=== PATIENT | male | born 1960 | race Caucasian/White ===

== ENCOUNTER 2018-01-11 17:59 | Inpatient (IN) | payer OTHER ==
[2018-01-11] MEDS: ONDANSETRON 4MG/2ML VIAL (J2405) IV (18:35)
[2018-01-11] MEDS: MORPHINE 2 MG/ML 1ML SYRINGE (J2270) IV ×2 (18:37→19:18)
[2018-01-11] MEDS: NS 1,000 ML IV (18:38)
[2018-01-11 18:40] LABS: BASO % 0.1 % (0.0-1.0); EOS # 0.1 10^3/uL (0.0-0.50); EOS % 0.4 % (0.0-3.0); HEMATOCRIT 40.9 % (42.0-52.0); HEMOGLOBIN 14.2 g/dl (13.5-17.5); IMMATURE GRANULOCYTE % 0.6 % (0-3.0); LYMPH # 1.6 10^3/uL (1.5-4.5); LYMPH % 11.7 % (24.0-44.0); MEAN CORPUSCULAR HGB CONC 34.7 g/dl (32.0-36.5); MEAN CORPUSCULAR VOLUME 95.1 fl (80.0-96.0); MONO # 1.6 10^3/uL (0.0-0.8); MONO % 11.8 % (0.0-5.0); NEUTROPHILS # 10.4 10^3/uL (1.8-7.7); NEUTROPHILS % 75.4 % (36.0-66.0); PLATELET COUNT, AUTOMATED 282 10^3/uL (150-450); RED CELL DISTRIBUTION WIDTH 12.9 % (11.5-14.5); WHITE BLOOD COUNT 13.8 10^3/uL (4.0-10.0)
[2018-01-11 18:50] LABS: INR 1.04; PROTHROMBIN TIME 13.7 SECONDS (12.1-14.4)
[2018-01-11 18:51] LABS: PARTIAL THROMBOPLASTIN TIME 28.5 SECONDS (25.4-37.6)
[2018-01-11 19:27] LABS: ALBUMIN 3.6 GM/DL (3.2-5.2); ALBUMIN/GLOBULIN RATIO 0.72 (1.00-1.93); ALKALINE PHOSPHATASE 121 U/L (45-117); ALT/SGPT 33 U/L (12-78); AMYLASE 732 U/L (25-115); ANION GAP 8 MEQ/L (8-16); AST/SGOT 27 U/L (7-37); BILIRUBIN,DIRECT 0.2 MG/DL (0.0-0.2); BILIRUBIN,TOTAL 0.6 MG/DL (0.2-1.0); BLOOD UREA NITROGEN 8 MG/DL (7-18); CALCIUM LEVEL 8.7 MG/DL (8.5-10.1); CARBON DIOXIDE LEVEL 26 MEQ/L (21-32); CHLORIDE LEVEL 93 MEQ/L (98-107); CK-MB VALUE MASS < 1.0 NG/ML (<3.6); CPK CREATINE PHOSPHOKINASE 70 U/L (39-308); CREATININE FOR GFR 0.71 MG/DL (0.70-1.30); GLOMERULAR FILTRATION RATE > 60.0 (>56); GLUCOSE, FASTING 102 MG/DL (70-100); LIPASE 7329 U/L (73-393); MB/CK RELATIVE INDEX 1.43 (< OR =4); POTASSIUM SERUM 4.1 MEQ/L (3.5-5.1); SODIUM LEVEL 127 MEQ/L (136-145); TOTAL PROTEIN 8.6 GM/DL (6.4-8.2); TROPONIN I < 0.02 NG/ML (< 0.10)
[2018-01-11] MEDS ORDERED: ISOVUE-370 76% 100ML VIAL (Q9967) As Ordered (19:46)
[2018-01-11] MEDS: MORPHINE 4 MG/ML 1ML VIAL/SYRINGE (J2270) IV (20:15)
[2018-01-11] MEDS ORDERED: ONDANSETRON 4MG/2ML VIAL (J2405) IV (23:45)
[2018-01-11] MEDS ORDERED: LORazepam 2 MG TAB PO (23:45)
[2018-01-12 00:12] LABS: ESTIMATED AVERAGE GLUCOSE 100 MG/DL (60-110); HEMOGLOBIN A1c 5.1 %
[2018-01-12] MEDS: MORPHINE 2 MG/ML 1ML SYRINGE (J2270) IV (00:26)
[2018-01-12] MEDS: THIAMINE 100 MG TAB PO ×3 (01:31→20:42)
[2018-01-12] MEDS: NS 1,000 ML IV (01:32)
[2018-01-12] MEDS: PERCOCET 5MG/325MG TAB PO ×4 (01:59→20:42)
[2018-01-12 06:53] LABS: HEMATOCRIT 36.7 % (42.0-52.0); MEAN CORPUSCULAR HEMOGLOBIN 33.2 pg (27.0-33.0); MEAN CORPUSCULAR HGB CONC 35.4 g/dl (32.0-36.5); MEAN CORPUSCULAR VOLUME 93.9 fl (80.0-96.0); PLATELET COUNT, AUTOMATED 258 10^3/uL (150-450); RED BLOOD COUNT 3.91 10^6/uL (4.30-6.10); RED CELL DISTRIBUTION WIDTH 12.9 % (11.5-14.5)
[2018-01-12] MEDS: MORPHINE 4 MG/ML 1ML VIAL/SYRINGE (J2270) IV (06:54)
[2018-01-12 07:14] LABS: ANION GAP 5 MEQ/L (8-16); BLOOD UREA NITROGEN 8 MG/DL (7-18); CALCIUM LEVEL 8.2 MG/DL (8.5-10.1); CARBON DIOXIDE LEVEL 27 MEQ/L (21-32); CHLORIDE LEVEL 97 MEQ/L (98-107); CREATININE FOR GFR 0.51 MG/DL (0.70-1.30); GLOMERULAR FILTRATION RATE > 60.0 (>56); GLUCOSE, FASTING 73 MG/DL (70-100); POTASSIUM SERUM 4.6 MEQ/L (3.5-5.1); SODIUM LEVEL 129 MEQ/L (136-145)
[2018-01-12] MEDS: FOLIC ACID 1 MG TAB PO (08:58)
[2018-01-12] MEDS: VERAPAMIL 120 MG SR TAB PO (08:58)
[2018-01-12] MEDS: MULTIVITAMINS/MINERALS THERAP 1 TAB PO (08:58)
[2018-01-12] MEDS: CREON-12 CAPSULE PO ×3 (08:58→17:35)
[2018-01-12] MEDS: AUGMENTIN 875 MG TAB PO ×2 (08:58→20:42)
[2018-01-12] MEDS: ENOXAPARIN 40 MG/0.4 ML SYRINGE (J1650) SC (08:59)
[2018-01-12] MEDS ORDERED: MULTIVITAMINS/MINERALS THERAP 1 TAB PO (09:00)
[2018-01-12 13:12] LABS: LIPASE 3481 U/L (73-393); MAGNESIUM LEVEL 1.9 MG/DL (1.8-2.4)
[2018-01-13] MEDS: PERCOCET 5MG/325MG TAB PO ×4 (02:12→18:27)
[2018-01-13 07:57] LABS: HEMATOCRIT 36.5 % (42.0-52.0); HEMOGLOBIN 12.8 g/dl (13.5-17.5); MEAN CORPUSCULAR HEMOGLOBIN 32.7 pg (27.0-33.0); MEAN CORPUSCULAR HGB CONC 35.1 g/dl (32.0-36.5); MEAN CORPUSCULAR VOLUME 93.4 fl (80.0-96.0); PLATELET COUNT, AUTOMATED 300 10^3/uL (150-450); RED BLOOD COUNT 3.91 10^6/uL (4.30-6.10); RED CELL DISTRIBUTION WIDTH 12.7 % (11.5-14.5); WHITE BLOOD COUNT 14.1 10^3/uL (4.0-10.0)
[2018-01-13 08:19] LABS: ANION GAP 9 MEQ/L (8-16); BLOOD UREA NITROGEN 10 MG/DL (7-18); CALCIUM LEVEL 8.2 MG/DL (8.5-10.1); CARBON DIOXIDE LEVEL 24 MEQ/L (21-32); CHLORIDE LEVEL 93 MEQ/L (98-107); CREATININE FOR GFR 0.61 MG/DL (0.70-1.30); GLOMERULAR FILTRATION RATE > 60.0 (>56); GLUCOSE, FASTING 79 MG/DL (70-100); POTASSIUM SERUM 3.8 MEQ/L (3.5-5.1); SODIUM LEVEL 126 MEQ/L (136-145)
[2018-01-13] MEDS: THIAMINE 100 MG TAB PO ×2 (09:43→21:32)
[2018-01-13] MEDS: CREON-12 CAPSULE PO ×3 (09:43→18:25)
[2018-01-13] MEDS: AUGMENTIN 875 MG TAB PO ×2 (09:43→21:32)
[2018-01-13] MEDS: MULTIVITAMINS/MINERALS THERAP 1 TAB PO (09:44)
[2018-01-13] MEDS: FOLIC ACID 1 MG TAB PO (09:44)
[2018-01-13] MEDS: VERAPAMIL 120 MG SR TAB PO (09:44)
[2018-01-13] MEDS: ENOXAPARIN 40 MG/0.4 ML SYRINGE (J1650) SC (09:45)
[2018-01-13] MEDS: DOCUSATE SODIUM 100 MG CAP PO (10:36)
[2018-01-13] MEDS: MOM 30ML SUSPENSION UDC PO (10:36)
[2018-01-13] MEDS: MIRALAX *UNIT DOSE* 17GM PACKET PO (13:11)
[2018-01-14 07:39] LABS: HEMATOCRIT 32.2 % (42.0-52.0); HEMOGLOBIN 11.3 g/dl (13.5-17.5); MEAN CORPUSCULAR HEMOGLOBIN 32.9 pg (27.0-33.0); MEAN CORPUSCULAR HGB CONC 35.1 g/dl (32.0-36.5); MEAN CORPUSCULAR VOLUME 93.9 fl (80.0-96.0); PLATELET COUNT, AUTOMATED 297 10^3/uL (150-450); RED BLOOD COUNT 3.43 10^6/uL (4.30-6.10); RED CELL DISTRIBUTION WIDTH 12.4 % (11.5-14.5); WHITE BLOOD COUNT 13.4 10^3/uL (4.0-10.0)
[2018-01-14 08:00] LABS: ANION GAP 11 MEQ/L (8-16); BLOOD UREA NITROGEN 8 MG/DL (7-18); CALCIUM LEVEL 7.9 MG/DL (8.5-10.1); CARBON DIOXIDE LEVEL 23 MEQ/L (21-32); CHLORIDE LEVEL 91 MEQ/L (98-107); CREATININE FOR GFR 0.53 MG/DL (0.70-1.30); GLOMERULAR FILTRATION RATE > 60.0 (>56); GLUCOSE, FASTING 73 MG/DL (70-100); LIPASE 698 U/L (73-393); POTASSIUM SERUM 4.3 MEQ/L (3.5-5.1); SODIUM LEVEL 125 MEQ/L (136-145)
[2018-01-14] MEDS: ENOXAPARIN 40 MG/0.4 ML SYRINGE (J1650) SC (09:42)
[2018-01-14] MEDS: VERAPAMIL 120 MG SR TAB PO (09:43)
[2018-01-14] MEDS: THIAMINE 100 MG TAB PO (09:43)
[2018-01-14] MEDS: AUGMENTIN 875 MG TAB PO (09:43)
[2018-01-14] MEDS: FOLIC ACID 1 MG TAB PO (09:43)
[2018-01-14] MEDS: DOCUSATE SODIUM 100 MG CAP PO (09:43)
[2018-01-14] MEDS: MULTIVITAMINS/MINERALS THERAP 1 TAB PO (09:44)
[2018-01-14] MEDS: CREON-12 CAPSULE PO ×2 (09:44→12:47)
[2018-01-14] MEDS ORDERED: FLEET ENEMA PR (12:15)
[2018-01-14] MEDS: SENOKOT S TAB PO (12:47)
== END 2018-01-14 13:25 | disposition home or self-care (01) | DRG 282 ==
LOC: M MS4PR 01-12 01:24 → M ED 17:59 → M ED INP 23:21
DX: K85.20 Alcohol induced acute pancreatitis without necrosis or infection (principal); I10 Essential (primary) hypertension; F10.129 Alcohol abuse with intoxication, unspecified; J42 Unspecified chronic bronchitis; F17.210 Nicotine dependence, cigarettes, uncomplicated; Z79.899 Other long term (current) drug therapy; K86.3 Pseudocyst of pancreas; K86.0 Alcohol-induced chronic pancreatitis

== ENCOUNTER → 2018-02-24 | Outpatient (CLI) | payer OTHER ==
[2018-02-24 13:31] LABS: BASO # 0.1 10^3/uL (0.0-0.2); BASO % 0.7 % (0.0-1.0); EOS # 0.3 10^3/uL (0.0-0.50); EOS % 3.5 % (0.0-3.0); HEMATOCRIT 36.9 % (42.0-52.0); HEMOGLOBIN 12.1 g/dl (13.5-17.5); IMMATURE GRANULOCYTE % 0.3 % (0-3.0); LYMPH # 1.9 10^3/uL (1.5-4.5); LYMPH % 26.5 % (24.0-44.0); MEAN CORPUSCULAR HEMOGLOBIN 31.3 pg (27.0-33.0); MEAN CORPUSCULAR HGB CONC 32.8 g/dl (32.0-36.5); MEAN CORPUSCULAR VOLUME 95.3 fl (80.0-96.0); MONO % 13.7 % (0.0-5.0); NEUTROPHILS # 3.9 10^3/uL (1.8-7.7); NEUTROPHILS % 55.3 % (36.0-66.0); PLATELET COUNT, AUTOMATED 345 10^3/uL (150-450); RED BLOOD COUNT 3.87 10^6/uL (4.30-6.10); RED CELL DISTRIBUTION WIDTH 13.3 % (11.5-14.5); WHITE BLOOD COUNT 7.1 10^3/uL (4.0-10.0)
[2018-02-24 13:49] LABS: ALBUMIN/GLOBULIN RATIO 0.83 (1.00-1.93); ALKALINE PHOSPHATASE 115 U/L (45-117); ALT/SGPT 17 U/L (12-78); AMYLASE 118 U/L (25-115); ANION GAP 6 MEQ/L (8-16); AST/SGOT 20 U/L (7-37); BILIRUBIN,TOTAL 0.4 MG/DL (0.2-1.0); BLOOD UREA NITROGEN 5 MG/DL (7-18); CALCIUM LEVEL 8.4 MG/DL (8.5-10.1); CARBON DIOXIDE LEVEL 27 MEQ/L (21-32); CHLORIDE LEVEL 104 MEQ/L (98-107); CHOLESTEROL LEVEL 127 MG/DL (<200); CHOLESTEROL RISK RATIO 3.097 (<5); CREATININE FOR GFR 0.65 MG/DL (0.70-1.30); GLOMERULAR FILTRATION RATE > 60.0 (>56); GLUCOSE, FASTING 73 MG/DL (70-100); HDL CHOLESTEROL 41 MG/DL (>40); LDL CHOLESTEROL 75 MG/DL (<100); LIPASE 542 U/L (73-393); NON-HDL-C 86 MG/DL; POTASSIUM SERUM 4.8 MEQ/L (3.5-5.1); PROSTATIC SPECIFIC AG MONITOR 0.74 NG/ML (< 4.0); SODIUM LEVEL 137 MEQ/L (136-145); TOTAL PROTEIN 6.6 GM/DL (6.4-8.2); TRIGLYCERIDES LEVEL 57 MG/DL (<150)
== END ==
LOC: M WUC 08:38
DX: R53.83 Other fatigue (principal); I10 Essential (primary) hypertension; E78.2 Mixed hyperlipidemia
CPT/HCPCS: 82150

== ENCOUNTER → 2018-10-18 | Outpatient (CLI) | payer OTHER ==
[~2018-10-18] MED LIST: AMOX/K; AUGM875T28 PO; B COTAB3 PO; COUM1TAB17 PO; FOLI1TAB11 PO; MULTCAP PO; NICO14DI3 TD; PERC5TAB12 PO; PERCOCET PO; PRED20TA; PRED20TA PO; SENO8.6T10 PO; SENO8.6T5 PO; SERAX PO; THIA100TA PO; TYLE325T5 PO; VERA120T2 PO; VERA240C PO; VERA24TASA; VITA100T8 PO; VITMTA PO
[2018-10-18 12:56] LABS: BASO % 0.6 % (0.0-1.0); EOS # 0.1 10^3/uL (0.0-0.50); EOS % 1.9 % (0.0-3.0); HEMATOCRIT 41.6 % (42.0-52.0); HEMOGLOBIN 14.5 g/dl (13.5-17.5); LYMPH # 1.5 10^3/uL (1.5-4.5); LYMPH % 47.8 % (24.0-44.0); MEAN CORPUSCULAR HEMOGLOBIN 33.1 pg (27.0-33.0); MEAN CORPUSCULAR HGB CONC 34.9 g/dl (32.0-36.5); MONO # 0.5 10^3/uL (0.0-0.8); MONO % 17.2 % (0.0-5.0); NEUTROPHILS % 32.2 % (36.0-66.0); PLATELET COUNT, AUTOMATED 136 10^3/uL (150-450); RED BLOOD COUNT 4.38 10^6/uL (4.30-6.10); WHITE BLOOD COUNT 3.1 10^3/uL (4.0-10.0)
[2018-10-18 13:10] LABS: ALBUMIN 3.7 GM/DL (3.2-5.2); ALT/SGPT 53 U/L (12-78); BILIRUBIN,TOTAL 0.8 MG/DL (0.2-1.0); BLOOD UREA NITROGEN 3 MG/DL (7-18); CALCIUM LEVEL 8.3 MG/DL (8.5-10.1); CARBON DIOXIDE LEVEL 26 MEQ/L (21-32); CHLORIDE LEVEL 100 MEQ/L (98-107); CHOLESTEROL LEVEL 153 MG/DL (<200); CHOLESTEROL RISK RATIO 1.843 (<5); CREATININE FOR GFR 0.83 MG/DL (0.70-1.30); GLOMERULAR FILTRATION RATE > 60.0 (>56); GLUCOSE, FASTING 73 MG/DL (70-100); HDL CHOLESTEROL 83 MG/DL (>40); LDL CHOLESTEROL 61 MG/DL (<100); NON-HDL-C 70 MG/DL; POTASSIUM SERUM 4.8 MEQ/L (3.5-5.1); SODIUM LEVEL 133 MEQ/L (136-145); TOTAL PROTEIN 7.4 GM/DL (6.4-8.2); TRIGLYCERIDES LEVEL 45 MG/DL (<150)
== END ==
LOC: M WUC 08:30
PROVIDERS: ATTEND Physician Assistant Medical
DX: R53.83 Other fatigue (principal); I10 Essential (primary) hypertension; E78.2 Mixed hyperlipidemia

== ENCOUNTER → 2020-03-08 | Outpatient (CLI) | payer OTHER ==
[~2020-03-08] MED LIST changes: -VERA120T2 PO; +VERA120T9 PO
== END ==
LOC: M LABSMTC 11:10
PROVIDERS: ATTEND Orthopaedic Surgery
DX: Z01.812 Encounter for preprocedural laboratory examination (principal); Z20.828 Contact with and (suspected) exposure to other viral communicable diseases

== ENCOUNTER → 2020-04-30 | Outpatient (REF) | payer OTHER | LOC: M LAB REF 12:12 | PROVIDERS: ATTEND Physician Assistant Medical | DX: H60.62 Unspecified chronic otitis externa, left ear (principal) ==

== ENCOUNTER → 2020-06-28 | Outpatient (CLI) | payer OTHER ==
--- NOTE | 2020-06-28 14:44 | REP ---
INDICATION: PAIN COMPARISON: None. TECHNIQUE: Six views right knee. FINDINGS: There is no evidence of acute fracture, dislocation, or intrinsic bone disease.The joint spaces are not significantly narrowed. There may be a small joint effusion. Heavy vascular calcifications are seen posteriorly. IMPRESSION: No radiographic evidence of significant arthritic change. Possible small joint effusion. Heavy atherosclerotic calcifications posteriorly. <Electronically signed by Alden Cameron > 06/28/20 1342
== END ==
LOC: M WUC 12:11
PROVIDERS: ATTEND Physician Assistant
DX: M25.561 Pain in right knee (principal)

== ENCOUNTER → 2020-07-31 | Outpatient (CLI) | payer OTHER ==
[2020-07-31 16:27] LABS: HEMATOCRIT 37.7 % (42.0-52.0); HEMOGLOBIN 12.6 g/dl (13.5-17.5); MEAN CORPUSCULAR HEMOGLOBIN 31.6 pg (27.0-33.0); MEAN CORPUSCULAR HGB CONC 33.4 g/dl (32.0-36.5); MEAN CORPUSCULAR VOLUME 94.5 fl (80.0-96.0); PLATELET COUNT, AUTOMATED 324 10^3/uL (150-450); RED BLOOD COUNT 3.99 10^6/uL (4.30-6.10); WHITE BLOOD COUNT 6.2 10^3/uL (4.0-10.0)
[2020-07-31 16:29] LABS: APPEARANCE, URINE CLEAR (CLEAR); BACTERIA, URINE AUTO NEGATIVE (NEGATIVE); BILIRUBIN, URINE AUTO NEGATIVE (NEGATIVE); BLOOD, URINE BLOOD 3+ (NEGATIVE); COLOR, URINE YELLOW (YELLOW); GLUCOSE, URINE (UA) AUTO NEGATIVE (NEGATIVE); KETONE, URINE AUTO NEGATIVE (NEGATIVE); LEUKOCYTE ESTERASE, URINE AUTO NEGATIVE (NEGATIVE); NITRITE, URINE AUTO NEGATIVE (NEGATIVE); PROTEIN, URINE AUTO 1+ mg/dL (NEGATIVE); RBC, URINE AUTO 9 /HPF (0-3); SPECIFIC GRAVITY URINE AUTO 1.004 (1.002-1.035); SQUAMOUS EPITHELIAL CELL UR AU 0 /HPF (0-6); UROBILINOGEN, URINE AUTO 0.2 mg/dL (0.0-2.0); WBC, URINE AUTO 1 /HPF (0-3)
[2020-07-31 17:00] LABS: ALBUMIN 3.7 GM/DL (3.2-5.2); ALT/SGPT 17 U/L (12-78); BILIRUBIN,TOTAL 0.5 MG/DL (0.2-1.0); BLOOD UREA NITROGEN 8 MG/DL (7-18); CARBON DIOXIDE LEVEL 28 MEQ/L (21-32); CHLORIDE LEVEL 98 MEQ/L (98-107); CHOLESTEROL LEVEL 155 MG/DL (<200); CHOLESTEROL RISK RATIO 2.214 (<5); CREATININE FOR GFR 0.69 MG/DL (0.70-1.30); GLOMERULAR FILTRATION RATE > 60.0 (>49); GLUCOSE, FASTING 86 MG/DL (70-100); HDL CHOLESTEROL 70 MG/DL (>40); IRON (FE) 59 UG/DL (65-175); LDL CHOLESTEROL 72 MG/DL (<100); MAGNESIUM LEVEL 1.8 MG/DL (1.8-2.4); NON-HDL-C 85 MG/DL; POTASSIUM SERUM 4.7 MEQ/L (3.5-5.1); PROSTATIC SPECIFIC AG MONITOR 0.93 NG/ML (< 4.00); SODIUM LEVEL 131 MEQ/L (136-145); TOTAL PROTEIN 7.2 GM/DL (6.4-8.2); TRIGLYCERIDES LEVEL 64 MG/DL (<150)
[2020-07-31 17:08] LABS: VITAMIN B12 LEVEL 427 PG/ML (247-911)
== END ==
LOC: M WUC 12:37
PROVIDERS: ATTEND Internal Medicine Cardiovascular Disease
DX: N39.0 Urinary tract infection, site not specified (principal)

== ENCOUNTER 2020-08-12 21:28 | Inpatient (IN) | payer OTHER ==
[~2020-08-12] VITALS: Ht 185.4 cm; Wt 75.5 kg
[2020-08-12] MEDS ORDERED: LABE20TAB (21:52)
[2020-08-12] MEDS ORDERED: TERA2CAP3 (21:52)
[2020-08-12] MEDS ORDERED: PANT40TA29 (21:52)
[2020-08-12] MEDS ORDERED: IBUP-1114 (21:52)
[2020-08-12] MEDS ORDERED: SUCR1TAB56 (21:52)
[2020-08-12 23:00] LABS: HEMATOCRIT 31.9 % (42.0-52.0); HEMOGLOBIN 11.2 g/dl (13.5-17.5); MEAN CORPUSCULAR HEMOGLOBIN 31.6 pg (27.0-33.0); MEAN CORPUSCULAR HGB CONC 35.1 g/dl (32.0-36.5); MEAN CORPUSCULAR VOLUME 90.1 fl (80.0-96.0); PLATELET COUNT, AUTOMATED 175 10^3/uL (150-450); RED BLOOD COUNT 3.54 10^6/uL (4.30-6.10)
[2020-08-12 23:26] LABS: INR 1.14; PROTHROMBIN TIME 14.9 SECONDS (12.5-14.3)
[2020-08-12 23:43] LABS: BLOOD UREA NITROGEN 41 MG/DL (7-18); CARBON DIOXIDE LEVEL 19 MEQ/L (21-32); CHLORIDE LEVEL 91 MEQ/L (98-107); CREATININE FOR GFR 5.47 MG/DL (0.70-1.30); GLOMERULAR FILTRATION RATE 11.4 (>49); GLUCOSE, FASTING 100 MG/DL (70-100); POTASSIUM SERUM 4.6 MEQ/L (3.5-5.1); SODIUM LEVEL 122 MEQ/L (136-145)
[2020-08-12 23:44] LABS: ALBUMIN 2.8 GM/DL (3.2-5.2); ALT/SGPT 29 U/L (12-78); BILIRUBIN,DIRECT 0.2 MG/DL (0.0-0.2); BILIRUBIN,TOTAL 0.5 MG/DL (0.2-1.0); CALCIUM LEVEL 7.9 MG/DL (8.8-10.2); TOTAL PROTEIN 6.1 GM/DL (6.4-8.2)
[2020-08-13] VITALS (9 sets, daily range): BP systolic 90–146; BP diastolic 58–85
--- NOTE | 2020-08-13 01:06 | REPVR ---
PROCEDURE INFORMATION: Exam: CT Abdomen And Pelvis Without Contrast Exam date and time: 08/12/2020 11:57 PM Age: 60 years old Clinical indication: Hematuria TECHNIQUE: Imaging protocol: Computed tomography of the abdomen and pelvis without contrast. Radiation optimization: All CT scans at this facility use at least one of these dose optimization techniques: automated exposure control; mA and/or kV adjustment per patient size (includes targeted exams where dose is matched to clinical indication); or iterative reconstruction. COMPARISON: CT ABD/PEL W/IV CONTRAST ONLY 01/11/2018 7:51 PM FINDINGS: Lungs: There is mild dependent atelectasis in both lower lobes. The lungs were not fully imaged. Heart: No cardiomegaly or pericardial effusion. Liver: There are hepatic cysts measuring up to 12 mm in segment 2 of the left hepatic lobe, which are stable compared to the prior CT abdomen and pelvis on 01/11/2018 and for which follow-up imaging is not necessary. Gallbladder and bile ducts: There is gallbladder wall thickening and/or pericholecystic fluid. No calcified gallstones are seen in the gallbladder. No dilation of the bile ducts is identified. Pancreas: There is a 1.2 cm cyst in the body of the pancreas that is stable compared to the prior CT abdomen and pelvis on 01/11/2018. There is chronic dilation of the main pancreatic duct, which measures up to 5 mm in diameter, which is also stable compared to the prior CT abdomen and pelvis on 01/11/2018. Spleen: Unremarkable. No splenomegaly is noted. Adrenal glands: Normal. No adrenal mass is noted. Kidneys and ureters: The kidneys are unremarkable. No renal lesion is noted. No stones are noted in the kidneys or ureters. There is no hydronephrosis or hydroureter. Stomach and bowel: The stomach is decompressed, limiting its optimal evaluation. The small bowel is unremarkable. There is no evidence for a bowel obstruction, diverticulosis, diverticulitis, colitis, perforated viscus, pneumatosis intestinalis, intussusception, or volvulus. There is a small amount of high attenuation fluid measuring approximately 74 Hounsfield units in the cecum and appendix, which may represent high density ingested material versus acute hemorrhage. Appendix: There is no evidence for appendicitis. Intraperitoneal space: There is a moderate amount of water density free fluid in the pelvis. No abscess or intraperitoneal free air is noted. Retroperitoneal space: No fluid collection. No mass. Vasculature: The abdominal aorta is normal in caliber. There are extensive atherosclerotic calcifications. Lymph nodes: No enlarged lymph nodes. Urinary bladder: There is thickening of the wall of the partially distended urinary bladder that is similar in appearance compared to the prior CT abdomen and pelvis on 01/11/2018. No calcified stones are seen in the bladder. Reproductive: There is a punctate calcification in the prostate gland. The seminal vesicles are unremarkable. Bones/joints: Orthopedic fixation hardware is noted in the right hip, which was not fully imaged. There is an old healed fracture deformity of the right femoral neck. No acute fracture, dislocation, or bony destructive changes are noted. There are degenerative changes in the lumbar spine. The bones have a demineralized appearance. No suspicious osteolytic or osteoblastic lesion is noted. Soft tissues: There is a small fat containing umbilical hernia, which is similar in appearance compared to the prior CT abdomen and pelvis on 01/11/2018. IMPRESSION: 1. No stones in the kidneys, ureters, or urinary bladder. No hydronephrosis or hydroureter. 2. Thickening of the wall of the partially distended urinary bladder that is similar in appearance compared to the prior CT abdomen and pelvis on 01/11/2018 and may represent bladder wall hypertrophy or cystitis. 3. Small amount of high attenuation fluid in the cecum and appendix, which may represent high density ingested material versus acute hemorrhage. 4. Gallbladder wall thickening and/or pericholecystic fluid. 5. Moderate amount of free fluid in the pelvis. 6. Small fat containing umbilical hernia, which is similar in appearance compared to the prior CT abdomen and pelvis on 01/11/2018. 7. 1.2 cm cyst in the body of the pancreas and dilation of the main pancreatic duct that is stable compared to the prior CT abdomen and pelvis on 01/11/2018. Reimaging every 1 year for 5 years is recommended. (Reference: Tisha, 2017) REFERENCES: Tisha BASS, et al. Management of Incidental Pancreatic Cysts: A White Paper of the ACR Incidental Findings Committee. J Am Jaylon Radiol. 2017;14(7):911-923. Electronically signed by: Rory Velázquez On 08/13/2020 01:07:27 AM
[2020-08-13] MEDS ORDERED: NS 1,000 ML IV ONE (01:20)
[2020-08-13 01:35] LABS: ETHYL ALCOHOL (ETHANOL) < 0.003 % (0.000-0.010)
[2020-08-13] MEDS ORDERED: MOM 30ML SUSPENSION UDC PO PRN (02:20)
[2020-08-13] MEDS ORDERED: LORazepam 2 MG TAB PO PRN (02:20)
[2020-08-13] MEDS ORDERED: ONDANSETRON 4MG/2ML VIAL IV PRN (02:20)
[2020-08-13 02:25] LABS: RSV AMPLIFICATION NEGATIVE (NEGATIVE)
--- NOTE | 2020-08-13 02:51 | REPVR ---
PROCEDURE INFORMATION: Exam: XR Chest Exam date and time: 08/13/2020 2:09 AM Age: 60 years old Clinical indication: Acute renal failure TECHNIQUE: Imaging protocol: XR of the chest. Views: 1 view. COMPARISON: CR Chest, 2 view PA, Lat 01/11/2018 6:48 PM FINDINGS: Lungs: Unremarkable. No consolidation. No pulmonary edema. Pleural spaces: Unremarkable. No pleural effusion. No pneumothorax. Heart/Mediastinum: There is smooth widening of the right and left paratracheal stripes, which has progressed compared to the prior chest x-ray on 01/11/2018. No cardiomegaly is noted. Bones/joints: Unremarkable. IMPRESSION: 1. No radiographic evidence for an acute cardiopulmonary process. 2. Smooth widening of the right and left paratracheal stripes, which has progressed compared to the prior chest x-ray on 01/11/2018. Differential diagnostic considerations include but are not limited to a thyroid goiter, thyroid nodules, mediastinal lymphadenopathy, and mediastinal lipomatosis. Further evaluation can be performed with a CT chest preferably with intravenous contrast on a nonemergent basis. Electronically signed by: Rory Velázquez On 08/13/2020 02:52:06 AM
[2020-08-13] MEDS ORDERED: CLOT1CRE71 TOP (03:04)
[2020-08-13] MEDS ORDERED: SUCR1TAB56 PO (03:04)
[2020-08-13] MEDS ORDERED: VITATAB73 PO (03:04)
[2020-08-13] MEDS ORDERED: LABE200T32 PO (03:04)
[2020-08-13] MEDS ORDERED: FOLI1TAB11 PO (03:04)
[2020-08-13] MEDS ORDERED: VERA240C PO (03:04)
[2020-08-13] MEDS ORDERED: PANT40TA29 PO (03:04)
[2020-08-13] MEDS ORDERED: HYDR1CRE30 TOP (03:04)
[2020-08-13] MEDS ORDERED: HYDROCORTISONE 1% CREAM 30 GM TOP PRN (03:15)
--- NOTE | 2020-08-13 03:56 | HPEPDOC ---
[facility] Medical History & Physical Date of Admission Aug 13, 2020 Date of Service: Aug 13, 2020 Attending Physician: SHARON DE SOUZA MD History and Physical CHIEF COMPLAINT: [60 y/o male c/o hematuria, oliguria x2 days] HISTORY OF PRESENT ILLNESS: [This patient is a poor historian. This is a 60 year old male with a pmh of ETOH disorder, chronic pancreatitis, CAD s/p cardiac catheterization, GERD, HTN and COPD who presents to the ED with a complaint of hematuria and oliguria x2 days. Patient states that two days ago he noticed that he had not urinated a lot and that when he did, it was almost black in color. Patient states that he was feeling ill with his chronic pancreatitis and was urinating into a gallon jug and noticed that over two days he had barely collected enough to fill the bottom of the jug. The urine was dark red in color. Patient states that he is not having pain when he urinates. Patient admits to some associated chills, malaise, fatigue, his normal chronic abd pain. Patient also admits to some sob and chest discomfort, but states that he always has these symptoms. Patient denies ever having this issue before. Denies associated nausea, vomiting, back/flank pain. Patient found to be in acute oliguric renal failure in the ED, with CR over 5, with his baseline being normal a month ago. Patient was bladder scanned for approx. 40mL's and did not void for the duration of his ED evaluation and work up.] PAST MEDICAL HISTORY: 1. [See HPI PAST SURGICAL HISTORY: 1. [Cardiac Cath 2. ORIF right hip]. SOCIAL HISTORY: Employment: [[employer]] Tobacco use:[1 pack a day "since he was 11 or 12"] ETOH: [Approx 12 beers a day] Illicit drug use: [Denies] FAMILY HISTORY: Father: [CVA] Mother: [COPD, CABG] ALLERGIES: Please see below. REVIEW OF SYSTEMS: CONSTITUTIONAL: [See HPI]. HEENT: [Denies URI sx]. CARDIOVASCULAR: [See HPI]. RESPIRATORY: [See HPI]. GASTROINTESTINAL: [See HPI]. GENITOURINARY: [See HPI]. SKIN: [Denies rash]. MUSCULOSKELETAL: [Denies acute joint pain]. NEUROLOGICAL: Admits to lower extremity paresthesias]. ENDOCRINE: [Denies DM]. HEMATOLOGIC/LYMPHATIC: [Denies easy bruising]. HOME MEDICATIONS: Please see below. PHYSICAL EXAMINATION: VITAL SIGNS: Please see below. GENERAL APPEARANCE: [This is a 60 year old male who appears older than his age. He is laying in bed and appears uncomfortable]. HEENT: [No mass or lesion. No scleral icterus or conjunctival erythema. EOMI. nares patent. Oral mucosa moist without erythema]. CARDIOVASCULAR: [Regular rate, rhythm. No murmurs, rubs, gallops]. LUNGS: [Good air flow auscultated. No wheezings, rales, rhonchi]. ABDOMEN: [Soft, non-tender]. MUSCULOSKELETAL: [No joint deformity]. EXTREMITIES: [No dependent edema appreciated. No clubbing, cyanosis. Pulses intact]. NEUROLOGICAL: [Sensation decreased to b/l lower extremities. Patient is A+Ox3, but is confused at times during exam. Speech clear. No focal deficits. ]. PSYCHIATRIC: [Flat affect. Depressed mood.]. LABORATORY DATA: See below. IMAGING: [CT abd/pelvis: FINDINGS: Lungs: There is mild dependent atelectasis in both lower lobes. The lungs were not fully imaged. Heart: No cardiomegaly or pericardial effusion. Liver: There are hepatic cysts measuring up to 12 mm in segment 2 of the left hepatic lobe, which are stable compared to the prior CT abdomen and pelvis on 01/11/2018 and for which follow-up imaging is not necessary. Gallbladder and bile ducts: There is gallbladder wall thickening and/or pericholecystic fluid. No calcified gallstones are seen in the gallbladder. No dilation of the bile ducts is identified. Pancreas: There is a 1.2 cm cyst in the body of the pancreas that is stable compared to the prior CT abdomen and pelvis on 01/11/2018. There is chronic dilation of the main pancreatic duct, which measures up to 5 mm in diameter, which is also stable compared to the prior CT abdomen and pelvis on 01/11/2018. Spleen: Unremarkable. No splenomegaly is noted. Adrenal glands: Normal. No adrenal mass is noted. Kidneys and ureters: The kidneys are unremarkable. No renal lesion is noted. No stones are noted in the kidneys or ureters. There is no hydronephrosis or hydroureter. Stomach and bowel: The stomach is decompressed, limiting its optimal evaluation. The small bowel is unremarkable. There is no evidence for a bowel obstruction, diverticulosis, diverticulitis, colitis, perforated viscus, pneumatosis intestinalis, intussusception, or volvulus. There is a small amount of high attenuation fluid measuring approximately 74 Hounsfield units in the cecum and appendix, which may represent high density ingested material versus acute hemorrhage. Appendix: There is no evidence for appendicitis. Intraperitoneal space: There is a moderate amount of water density free fluid in the pelvis. No abscess or intraperitoneal free air is noted. Retroperitoneal space: No fluid collection. No mass. Vasculature: The abdominal aorta is normal in caliber. There are extensive atherosclerotic calcifications. Lymph nodes: No enlarged lymph nodes. Urinary bladder: There is thickening of the wall of the partially distended urinary bladder that is similar in appearance compared to the prior CT abdomen and pelvis on 01/11/2018. No calcified stones are seen in the bladder. Reproductive: There is a punctate calcification in the prostate gland. The seminal vesicles are unremarkable. Bones/joints: Orthopedic fixation hardware is noted in the right hip, which was not fully imaged. There is an old healed fracture deformity of the right femoral neck. No acute fracture, dislocation, or bony destructive changes are noted. There are degenerative changes in the lumbar spine. The bones have a demineralized appearance. No suspicious osteolytic or osteoblastic lesion is noted. Soft tissues: There is a small fat containing umbilical hernia, which is similar in appearance compared to the prior CT abdomen and pelvis on 01/11/2018. IMPRESSION: 1. No stones in the kidneys, ureters, or urinary bladder. No hydronephrosis or hydroureter. 2. Thickening of the wall of the partially distended urinary bladder that is similar in appearance compared to the prior CT abdomen and pelvis on 01/11/2018 and may represent bladder wall hypertrophy or cystitis. 3. Small amount of high attenuation fluid in the cecum and appendix, which may represent high density ingested material versus acute hemorrhage. 4. Gallbladder wall thickening and/or pericholecystic fluid. 5. Moderate amount of free fluid in the pelvis. 6. Small fat containing umbilical hernia, which is similar in appearance compared to the prior CT abdomen and pelvis on 01/11/2018. 7. 1.2 cm cyst in the body of the pancreas and dilation of the main pancreatic duct that is stable compared to the prior CT abdomen and pelvis on 01/11/2018. Reimaging every 1 year for 5 years is recommended. (Reference: Tisha, 2017) Chest x-ray: FINDINGS: Lungs: Unremarkable. No consolidation. No pulmonary edema. Pleural spaces: Unremarkable. No pleural effusion. No pneumothorax. Heart/Mediastinum: There is smooth widening of the right and left paratracheal stripes, which has progressed compared to the prior chest x-ray on 01/11/2018. No cardiomegaly is noted. Bones/joints: Unremarkable. IMPRESSION: 1. No radiographic evidence for an acute cardiopulmonary process. 2. Smooth widening of the right and left paratracheal stripes, which has progressed compared to the prior chest x-ray on 01/11/2018. Differential diagnostic considerations include but are not limited to a thyroid goiter, thyroid nodules, mediastinal lymphadenopathy, and mediastinal lipomatosis. Further evaluation can be performed with a CT chest preferably with intravenous contrast on a nonemergent basis. ] MICROBIOLOGY: Please see below. ASSESSMENT: [This is a 60 year old male who reports to the ED with complaints of hematuria and oliguria. Patient is unfortunately a heavy drinker and smoker with a pmh of chronic pancreatitis, COPD, HTN, CAD and GERD. Patient is a poor historian and at times confused. Patient's sister wrote list of his complaints to bring with him to the ED so he would not forget to tell us. Workup of patient in ED has revealed acute oliguric renal failure, hyponatremia of 122, and an AST:ALT ratio of close to 2:1, indicative of alcoholic liver disease. ]. . PLAN: 1. [Oliguric renal failure - Unclear as to why patient has entered renal failure now. Patient has multiple obvious risk factors for kidney disease. - No evidence of obstructing stone on CT, will order renal US - Patient given 1L NS bolus in ED, will continue IVF on the floor. - We will need urinalysis on this patient for further workup of kidney failure, however patient is making little to no urine at this time - Dr. Ania Kirby, nephrology, has been consulted. We thank them for the assistance. - Admit to PCU on tele 2. Hematuria - Cannot r/o malignancy at this time. Pt has bladder wall thickening on CT, has long history of smoking - Potentially secondary to kidney failure - H/H is stable - if acute cause is not found, patient would likely benefit from outpatient f/u with urology for cystoscopy 2. Hyponatremia - Likely secondary to etoh disorder - Will be giving normal saline. - Repeat labs at 0600 3. Chronic pancreatitis - Secondary to etoh disorder - Zofran for nausea, tylenol for pain d/t kidney failure 4. ETOH disorder - CIWA protocol 5. HTN - continue labetalol, verapamil 6. GERD - continue protonix, carafate 7. COPD - stable, no tx right now 8. CAD - stable 9. Paratracheal findings on cxr - Radiology recommends f/u ct chest for further investigation of mediastinal widening. This is not appropriate at this time as this study would require IV contrast and this finding does not appear to need urgent f/u 10. DVT prophylaxis - teds and sequentials only d/t bleeding]. Vital Signs Vital Signs Date Time Temp Pulse Resp B/P (MAP) Pulse Ox O2 Delivery O2 Flow Rate FiO2 08/12/20 22:34 08/12/20 21:28 98.2 73 16 97 Room Air Laboratory Data Labs 24H Laboratory Tests 2 08/12/20 22:49: Nucleated Red Blood Cells % (auto) 0.0, Prothrombin Time 14.9H, Prothromb Time International Ratio 1.14, Anion Gap 12, Glomerular Filtration Rate 11.4L, Calcium Level 7.9L, Total Bilirubin 0.5, Direct Bilirubin 0.2, Aspartate Amino Transf (AST/SGOT) 46H, Alanine Aminotransferase (ALT/SGPT) 29, Alkaline Phosphatase 103, Total Protein 6.1L, Albumin 2.8L, Albumin/Globulin Ratio 0.8, Ethyl Alcohol Level < 0.003 08/13/20 01:36: Coronavirus (COVID-19)(PCR) NEGATIVE, Influenza Type A (RT-PCR) NEGATIVE, Influenza Type B (RT-PCR) NEGATIVE, Respiratory Syncytial Virus (PCR) NEGATIVE CBC/BMP Laboratory Tests 08/12/20 22:49 Home Medications Scheduled Folic Acid (Folic Acid) 1 Mg Tablet, 1 MG PO DAILY Labetalol HCl (Labetalol HCl) 200 Mg Tablet, 200 MG PO BID Pantoprazole Sodium (Pantoprazole Sodium) 40 Mg Tablet.dr, 40 MG PO QHS Sucralfate (Sucralfate) 1 Gm Tablet, 1 GM PO BID Verapamil HCl (Verapamil ER) 240 Mg Cap24h.pel, 240 MG PO DAILY Vitamin B Complex (Vitamin B Complex) 1 Each Tablet, 1 TAB PO DAILY Scheduled PRN Clotrimazole/Betamethasone Dip (Clotrimazole-Betamethasone Crm) 15 Gm Cream..g., 1 DOSE TOP BID PRN for ITCHING USES ON BACK Hydrocortisone (Hydrocortisone) 28 Gm Cream..g., 1 DOSE TOP BID PRN for ITCHING USES ON BACK Allergies Coded Allergies: No Known Allergies (Unverified , 08/12/20) A-FIB/CHADSVASC A-FIB History Current/History of A-Fib/PAF?: No SHERYL CAMPOS Aug 13, 2020 03:56
[2020-08-13] MEDS ORDERED: NS 1,000 ML IV SCH (04:05)
[2020-08-13 04:59] LABS: HEMATOCRIT 31.6 % (42.0-52.0); MEAN CORPUSCULAR HEMOGLOBIN 31.6 pg (27.0-33.0); MEAN CORPUSCULAR HGB CONC 34.8 g/dl (32.0-36.5); MEAN CORPUSCULAR VOLUME 90.8 fl (80.0-96.0); PLATELET COUNT, AUTOMATED 164 10^3/uL (150-450); RED BLOOD COUNT 3.48 10^6/uL (4.30-6.10); WHITE BLOOD COUNT 9.6 10^3/uL (4.0-10.0)
[2020-08-13 05:12] LABS: INR 1.22; PROTHROMBIN TIME 15.7 SECONDS (12.5-14.3)
[2020-08-13 05:13] LABS: PARTIAL THROMBOPLASTIN TIME 36.6 SECONDS (24.2-38.5)
[2020-08-13 05:27] LABS: ALBUMIN 2.6 GM/DL (3.2-5.2); BILIRUBIN,TOTAL 0.5 MG/DL (0.2-1.0); CALCIUM LEVEL 7.9 MG/DL (8.8-10.2); CREATININE FOR GFR 5.53 MG/DL (0.70-1.30); GLOMERULAR FILTRATION RATE 11.2 (>49); MAGNESIUM LEVEL 1.6 MG/DL (1.8-2.4); POTASSIUM SERUM 4.1 MEQ/L (3.5-5.1); TOTAL PROTEIN 5.7 GM/DL (6.4-8.2)
[2020-08-13 07:46] LABS: PERCENT SATURATION 8.2 % (19.7-50.0)
[2020-08-13] MEDS ORDERED: MAG SULF 1GM/100ML (MAG RUN) 1 GM in IV 1 EA IV ONE (08:00)
[2020-08-13] MEDS: MAGNESIUM OXIDE 400MG TAB (MAG-OX) PO SCH (08:04)
[2020-08-13] MEDS: MULTIVITAMINS/MINERALS THERAP 1 TAB PO SCH (08:04)
[2020-08-13] MEDS: THIAMINE 100 MG TAB PO SCH ×2 (08:04→21:43)
[2020-08-13] MEDS: SUCRALFATE 1 GM TAB PO SCH ×2 (08:04→21:43)
[2020-08-13] MEDS: DOCUSATE SODIUM 100MG CAPSULE PO SCH ×2 (08:04→21:43)
--- NOTE | 2020-08-13 08:04 | REP ---
INDICATION: arf COMPARISON: None TECHNIQUE: Real time chatterjee scale ultrasound examination using curved array transducer. FINDINGS: The kidneys are normal in reniform shape and size demonstrating increased parenchymal echotexture. No hydronephrosis, nephrolithiasis, cystic or renal mass lesion. Bladder demonstrates a mildly trabeculated wall, but without focal mass. Bilateral ureteral jets are identified. Right kidney measures 13.1 x 6.2 x 5.3 cm. Left kidney measures 13.2 x 6.7 x 6.0 cm. IMPRESSION: 1. Increased parenchymal echotexture suggesting medical renal disease. No hydronephrosis. 2. Trabeculated bladder wall may represent chronic outlet obstruction. <Electronically signed by Javier Magana > 08/13/20 0800
[2020-08-13] MEDS: FOLIC ACID 1 MG TAB PO SCH (08:05)
[2020-08-13] MEDS ORDERED: VERAPAMIL 120 MG SR TAB PO SCH (09:00)
[2020-08-13] MEDS ORDERED: LABETALOL 200 MG TAB PO SCH (09:00)
--- NOTE | 2020-08-13 09:35 | IPN ---
PROGRESS NOTE DATE: 08/13/2020 SUBJECTIVE: Patient was seen and examined this morning. Chart has been reviewed. Patient denies any shortness of breath, confusion, headache. No seizure activity overnight despite sodium level of 123. Patient is able to answer questions. He denies any withdrawal symptoms such as tremors, confusion, paresthesias, hallucinations. Patient otherwise denies any flank pain, decreased urine output, dysuria. Per input and output review 0 output from 08/13/2020, input of 1195. OBJECTIVE: Vital signs: Temperature 98.2, pulse, 64, respiratory rate 17, blood pressure 142/81, 98% on room air. General: Patient is awake, alert, oriented to person, place and time, answering questions appropriately. HEENT: No pallor, no icterus, no cyanosis. Dry mucous membranes. Tongue is midline. Face is symmetric. Neck: No JVD, thyromegaly or cervical lymphadenopathy. Lungs: Clear to auscultation, no wheezes, rhonchi or rales. Air entry is equal. No kyphoscoliosis. No use of respiratory accessory muscles. Heart: S1 and S2, sinus rhythm, no murmurs, rubs or gallops. Abdomen: Soft, nontender, nondistended, positive bowel sounds. No hepatosplenomegaly. Extremities: No cyanosis or clubbing. LABORATORY DATA: White count 9.6, hemoglobin 11, hematocrit 31, platelet count 164. Sodium 123, previous sodium was 122, potassium 4, chloride 92, bicarb 21, BUN 42, creatinine 5.53, glucose 87, magnesium 1.6. Lipase 808. IMAGING STUDIES: CT abdomen and pelvis 08/12/2020: No stones in the kidney, ureters or urinary bladder, no hydronephrosis or hydroureter, thickening of a partially distended urinary bladder similar in appearance to prior CT abdomen and pelvis of 01/11, may represent bladder wall hypertrophy or cystitis, a small amount of attenuation fluid in the cecum and appendix may represent material versus acute hemorrhage, gallbladder wall thickening and/or pericholecystic fluid, moderate free fluid in the pelvis, a small amount of fat containing umbilical hernia similar in appearance, 1.2 cm cyst in the body of the pancreas and dilation of the main pancreatic duct that is stable from CT abdomen 01/11/2018. Re-imaging every 1 year for 5 years is recommended. ASSESSMENT: This is a 60-year-old alcoholic that presented with hematuria and oliguria for 2 days found to have acute renal failure with hyponatremia. IMPRESSIONS/PLANS: 1. Acute renal failure with hematuria: Patient does not have metabolic acidosis, fluid overload, but remains oliguric. May need emergent hemodialysis if patient is persistently oliguric. 2. Hyperkalemic with metabolic acidosis: Defer to nephrology regarding timing of dialysis. Strict I's&O's, daily weights, fluid management to be managed by nephrology. No hydronephrosis or kidney stone or signs of obstructive uropathy. No fever. Check UA, urine C&S to rule out UTI. 3. Alcohol abuse: No signs of alcohol withdrawal. Currently on thiamine, folate, multivitamin, Ativan as needed per withdrawal protocol. 4. Hypomagnesemia: Continue on mag oxide and mag sulfate times 1. 5. Anemia of chronic disease: Check iron studies and hemoccult stool. Most likely due to acute prolonged blood loss from hematuria. No acute indication for RBC transfusion. 6. DVT prophylaxis: With compression stockings. MTDD
[2020-08-13 11:38] LABS: CREATININE,RANDOM URINE 79.1 MG/DL
[2020-08-13 12:18] LABS: CALCIUM LEVEL 7.5 MG/DL (8.8-10.2); CREATININE FOR GFR 5.79 MG/DL (0.70-1.30); GLOMERULAR FILTRATION RATE 10.7 (>49); POTASSIUM SERUM 4.4 MEQ/L (3.5-5.1)
[2020-08-13] MEDS ORDERED: SODIUM BICARBONATE 150 MEQ in D5W 1,000 ML IV SCH (14:00)
[2020-08-13 16:09] LABS: CHOLESTEROL LEVEL 108 MG/DL (<200); COMPLEMENT C3 68 MG/DL (90-180); COMPLEMENT C4 20 MG/DL (10-40); HDL CHOLESTEROL 20 MG/DL (>40); LDL CHOLESTEROL 41 MG/DL (<100); NON-HDL-C 88 MG/DL; TRIGLYCERIDES LEVEL 233 MG/DL (<150)
[2020-08-13 16:17] LABS: HEPATITIS B SURFACE ANTIBODY NEGATIVE (POSITIVE)
[2020-08-13 16:27] LABS: HEPATITIS B SURFACE ANTIGEN NEGATIVE (NEGATIVE)
[2020-08-13 16:55] LABS: HEPATITIS C VIRUS ABY INDEX < 0.0 INDEX (<0.8)
[2020-08-13 16:56] LABS: HEPATITIS B CORE ANTIBODY IGM NEGATIVE (NEGATIVE)
[2020-08-13] MEDS: LABETALOL 100MG TAB PO SCH (21:00)
[2020-08-13] MEDS: PANTOPRAZOLE 40MG TAB (PROTONIX) PO SCH (21:43)
[2020-08-14] VITALS (8 sets, daily range): BP systolic 132–171; BP diastolic 65–92
[2020-08-14] MEDS: SODIUM BICARBONATE 150 MEQ in D5W 1,000 ML IV SCH ×2 (01:34→22:31)
[2020-08-14 02:05] LABS: AMORPHOUS SEDIMENT SMALL (NEGATIVE); APPEARANCE, URINE HAZY (CLEAR); BACTERIA, URINE AUTO 1+ (NEGATIVE); BILIRUBIN, URINE AUTO NEGATIVE (NEGATIVE); BLOOD, URINE BLOOD 3+ (NEGATIVE); COLOR, URINE RED (YELLOW); GLUCOSE, URINE (UA) AUTO NEGATIVE (NEGATIVE); KETONE, URINE AUTO NEGATIVE (NEGATIVE); LEUKOCYTE ESTERASE, URINE AUTO 2+ (NEGATIVE); NITRITE, URINE AUTO NEGATIVE (NEGATIVE); PROTEIN, URINE AUTO 2+ mg/dL (NEGATIVE); RBC, URINE AUTO TNTC /HPF (0-3); SPECIFIC GRAVITY URINE AUTO 1.005 (1.002-1.035); SQUAMOUS EPITHELIAL CELL UR AU 0 /HPF (0-6); UROBILINOGEN, URINE AUTO 0.2 mg/dL (0.0-2.0); WBC, URINE AUTO 65 /HPF (0-3)
[2020-08-14 05:53] LABS: HEMATOCRIT 30.2 % (42.0-52.0); HEMOGLOBIN 10.8 g/dl (13.5-17.5); MEAN CORPUSCULAR HEMOGLOBIN 31.6 pg (27.0-33.0); MEAN CORPUSCULAR HGB CONC 35.8 g/dl (32.0-36.5); MEAN CORPUSCULAR VOLUME 88.3 fl (80.0-96.0); PLATELET COUNT, AUTOMATED 160 10^3/uL (150-450); RED BLOOD COUNT 3.42 10^6/uL (4.30-6.10); WHITE BLOOD COUNT 9.8 10^3/uL (4.0-10.0)
[2020-08-14 06:07] LABS: INR 1.11; PROTHROMBIN TIME 14.5 SECONDS (12.5-14.3)
[2020-08-14 06:08] LABS: PARTIAL THROMBOPLASTIN TIME 35.9 SECONDS (24.2-38.5)
[2020-08-14 06:49] LABS: ALBUMIN 2.4 GM/DL (3.2-5.2); BILIRUBIN,TOTAL 0.4 MG/DL (0.2-1.0); CALCIUM LEVEL 7.6 MG/DL (8.8-10.2); CREATININE FOR GFR 6.23 MG/DL (0.70-1.30); GLOMERULAR FILTRATION RATE 9.8 (>49); MAGNESIUM LEVEL 1.8 MG/DL (1.8-2.4); POTASSIUM SERUM 3.7 MEQ/L (3.5-5.1); TOTAL PROTEIN 5.4 GM/DL (6.4-8.2)
--- NOTE | 2020-08-14 07:50 | ECGEPIP ---
[facility] - ED Test Date: 2020-08-13 Pat Name: ALEIDA ANSARI Department: Room: [place] [address] Gender: Male [employer] Supervisor: er : 1960 Requested By: Shiv Fritz Order Number: [id number] Reading MD: Shiv Barahona Measurements Intervals [place] Rate: 58 P: 58 UT: 172 QRS: 54 QRSD: 90 T: 66 QT: 464 QTc: 455 Interpretive Statements Sinus bradycardia Septal infarct , age undetermined Inferior T wave inversion on prior tracing no longer present Electronically Signed on 08-14-2020 7:50:20 EDT by Shiv Barahona
[2020-08-14] MEDS: MULTIVITAMINS/MINERALS THERAP 1 TAB PO SCH (09:26)
[2020-08-14] MEDS: SUCRALFATE 1 GM TAB PO SCH ×2 (09:26→21:01)
[2020-08-14] MEDS: THIAMINE 100 MG TAB PO SCH ×2 (09:26→20:59)
[2020-08-14] MEDS: LABETALOL 100MG TAB PO SCH (09:26)
[2020-08-14] MEDS: MAGNESIUM OXIDE 400MG TAB (MAG-OX) PO SCH (09:26)
[2020-08-14] MEDS: DOCUSATE SODIUM 100MG CAPSULE PO SCH ×2 (09:27→21:01)
[2020-08-14] MEDS: FOLIC ACID 1 MG TAB PO SCH (09:27)
--- NOTE | 2020-08-14 10:22 | IPN ---
PROGRESS NOTE DATE: 08/14/2020 SUBJECTIVE: The patient remains oliguric with urine output of 350 yesterday, 500 since this morning. Denies any chest pain, shortness of breath, palpitations, lightheadedness or dizziness despite a history of alcohol abuse. He denies any tremors, hallucinations, paresthesias, abdominal pain, nausea or vomiting. Patient said that after the Gomez attempts yesterday he now has some discomfort when he urinates. OBJECTIVE: VITAL SIGNS: Temperature is 98, pulse is 74, respiratory rate is 18, blood pressure is 163/83, 92% on room air. GENERAL: Awake, alert and oriented x3. HEENT: Anicteric. No jaundice. Dry mucous membranes. NECK: No JVD or thyromegaly. LUNGS: Clear to auscultation. No wheezing, rales or rhonchi. HEART: S1 and S2, sinus rhythm. ABDOMEN: Soft, nontender and nondistended. Positive bowel sounds. EXTREMITIES: No cyanosis, clubbing or pitting edema. LABORATORY DATA: A 08/14 CBC: White count 9.8, hemoglobin 10, hematocrit 30, platelet count 160,000. Sodium 125, potassium is 3.7, chloride is 93, bicarbonate 20, BUN 48, creatinine 6.2, glucose 111, magnesium of 1.8. ASSESSMENT AND PLAN: This is a 60-year-old alcoholic with a history of alcohol dependence and chronic pancreatitis with chronic pseudocyst who presented to the Emergency Room with complaints of gross hematuria and oliguria for 2 days, found to have acute renal failure with chronic hyponatremia and metabolic acidosis. 1. Acute renal failure with gross hematuria and hyponatremia. Patient admits to nonsteroidal anti-inflammatory use, currently on Bicarbonate drip managed by nephrology. No acute indication for hemodialysis at this time but remains oliguric. 2. Gross hematuria with CT of the abdomen and pelvis showing thickening of the bladder wall per urologist, Dr. Paris, outpatient follow-up. 3. Anemia secondary to acute blood loss from gross hematuria. No acute indication for RBC transfusion at this time. Check urine culture to monitor for urinary tract infection and treat with antibiotics if positive. The patient now complains of dysuria after attempts at Gomez catheter placement. 4. Alcohol abuse, no signs of alcohol withdrawal, currently on multivitamin, thiamine, folate, and Ativan as needed per withdrawal protocol. 5. DVT prophylaxis with compression stockings. MTDD
--- NOTE | 2020-08-14 11:46 | CR ---
INPATIENT CONSULTATION DATE: 08/13/2020 REQUESTING PHYSICIAN: SCOTT Menendez. CONSULTING PHYSICIAN: Christie Kirby DO. REASON FOR CONSULTATION: Acute oliguric renal failure. HISTORY OF PRESENT ILLNESS: Mr. Geller is previously unknown to me. He is a 60-year-old male with a past medical history of alcohol abuse, COPD, chronic pancreatitis, CAD, hypertension, COPD and other comorbidities conditions mentioned below. The patient has a baseline creatinine of less than 1 and prior labs are reviewed and notable for a creatinine of 0.69 very recently just on July 31, 2020. The patient states that over the past 10 days he was having increasing knee pain and was taking his prescription ibuprofen 400 mg tablet with 7-10 tablets or more taken daily and then over the weekend he started to note decreased urine output and discoloration and darkening of the urine and he subsequently presented to the Emergency Room for further evaluation. In the Emergency Room he was found to have a creatinine of 5.4 and was also found to be hyponatremic with a serum sodium of 122. Patient states that his hyponatremia has been a chronic problem and when I look back at old laboratory studies going back to 2014 I note patient's sodium usually is between 125 and 133. The patient denies any other complaints that are new. He reports chronic shortness of breath and attributes that to his heavy smoking and he also reports chronic abdominal pain which he has attributed to his heavy drinking. PAST MEDICAL HISTORY: 1. Alcoholism. 2. Chronic pancreatitis. 3. Chronic hyponatremia. 4. Coronary artery disease. 5. COPD. 6. GERD. 7. Hypertension. 8. NSAID abuse. PAST SURGICAL HISTORY: 1. Cardiac catheterization. 2. Open reduction internal fixation right hip. ALLERGIES: No known drug allergies. HOME MEDICATIONS: 1. Ibuprofen 400 mg, 7-10 tablets or more per day for the past week. 2. Folic acid 1 mg daily. 3. Labetalol 200 mg by mouth twice a day. 4. Protonix 40 mg by mouth at bedtime. 5. Sucralfate 1 gram by mouth twice a day. 6. Verapamil 250 mg by mouth daily. SOCIAL HISTORY: He reports 2 pack per day smoking started age 12. He reports daily intake of 12 cans of beer or more for many years. He denies illicit drug use. FAMILY HISTORY: Significant for heart disease in his mother and stroke in his father. He denies a family history of known renal failure. REVIEW OF SYSTEMS: Constitutional: Denies fever or chills. ENT: Denies visual changes or blurring. Denies rhinorrhea or epistaxis. Denies odynophagia. Cardiac: Denies chest pain or palpitations or leg swelling. Respiratory: Reports chronic shortness of breath, COPD, heavy smoking. Denies any hemoptysis or bloody sputum. Gastrointestinal: Reports chronic abdominal pain. Denies diarrhea or vomiting. Genitourinary: Reports oliguria and dark discolored urine. Denies foamy urine. Musculoskeletal: Reports knee pain. Denies leg swelling. Endocrine: Denies diabetes or thyroid issues. Reports chronic hyponatremia. Hematologic: Reports anemia. Neurologic: Denies seizure or syncope. Skin - denies new rashes or pruritus Psych - reports heavy drinking / alcoholism, denies depression The remainder of review of systems is negative or as per HPI. PHYSICAL EXAMINATION: Vital signs: Temperature 98.8, pulse 68, respiratory rate 18, blood pressure 142/75, saturating 97% on room air. Intake was 3.1 liters. Urine output all day today is 350 mL. General: Patient is seen lying flat in bed awake, alert, oriented times 3 and in no apparent distress. He appears mildly anxious, but not in any acute withdrawal. HEENT: Extraocular muscles are intact. Tongue is moist. Neck: Supple. Jugular veins are not elevated. Lungs: Clear to auscultation bilaterally, no crackle or rale. There is prolonged expiration. Heart: Sounds are regular S1 and S2. There is no leg edema. Abdomen: Soft and mildly tender in the epigastrium. There are bowel sounds. His bladder is not palpable. Extremities: Negative for cyanosis, clubbing or edema. Neurologic: He is awake, alert, oriented times 3, interactive, conversational and no deficits are appreciated. LABORATORY DATA: Admission sodium 122 current sodium 122, potassium 4.4, bicarbonate 18, BUN 44, creatinine 5.7, GFR 10. Serum osmolality 259, urine osmolality 168. Urinalysis and urine microscopy are requested. Magnesium 1.6. Transferrin saturation 8%. Albumin 2.6. Hemoglobin 11, platelets 164. RADIOLOGY STUDIES: Renal ultrasound done today shows trabeculated bladder wall may represent chronic outlet obstruction and increased echogenicity of the kidneys. CT abdomen and pelvis done yesterday without contrast shows a cyst in the body of the pancreas, no obstructive uropathy. There are extensive atherosclerotic calcifications and there is thickening of the wall of the partially distended urinary bladder. INPATIENT MEDICATIONS: 1. Magnesium sulfate 1 gram I.V. times 1. 2. Normal saline 1 liter bolus. 3. Patient was on normal saline at 120 mL an hour and this was discontinued and switched to a sodium bicarbonate drip to run at 100 mL an hour. 4. Colace 100 mg by mouth twice a day. 5. Folic acid 1 mg by mouth daily. 6. Labetalol 200 mg by mouth twice a day. 7. Magnesium oxide 400 mg by mouth daily. 8. Multivitamin 1 tablet by mouth daily. 9. Protonix 40 mg by mouth at bedtime. 10. Sucralfate 1 gram by mouth twice a day. 11. Thiamine 100 mg by mouth twice a day. 12. Verapamil 240 mg by mouth daily. PROBLEMS/PLAN: 1. Acute oliguric renal failure: Patient had a creatinine of 0.6 just very recently on July 30, 2020. He now comes in with a creatinine of 5.5 and reports heavy use of ibuprofen at home for more than a week with 400 mg tablets and taking 7-10 or more than tablets per day of ibuprofen. The patient also self reports blood in the urine. No urinalysis or urine microscopy has been done yet. The patient could not tolerate straight catheterization for collection of urine specimen, but when I look at his prior urinalysis I see a UA done on July 31 with 3+ blood; however, the microscopy showed only 9 RBCs per high powered field. Most likely his acute renal failure is related to high dose NSAIDs, but there is also concern for acute glomerulonephritis and I have requested the usual urinalysis, urine microscopy and serologic work-up with JESUS, ANCA and compliments. At present there is no urgent indication for hemodialysis and I would continue with I.V. fluids at this time while further work-up is undertaken. His renal imaging was negative for obstruction. 2. Hematuria: No urinalysis was done yet on this admission, but we do have a UA from July 31 which showed 3+ blood (microscopy with 9 RBCs per high powered field and only 1+ protein on that urinalysis). His CT scan did show thickening of the bladder wall and he is a very heavy smoker with more than 80 pack year history and he would need cystoscopy as an outpatient. In the meanwhile we will also work-up for glomerulonephritis given his acute renal failure and serologies are pending. He denies any new pulmonary complaints and pulmonary renal syndrome is low on the list of differential diagnoses. 3. Chronic hypoosmolar hyponatremia: Laboratory studies over the past 5 years show patient is chronically hyponatremic secondary to his alcoholism. He drinks more than 12 cans of beer a day. He has no mentation changes with the current sodium level. His urine osmolality is already low at 168 and I would continue him with isotonic fluid at this time. He is presently receiving normal saline and I have switched over to sodium bicarbonate containing fluid. I have stopped the salt restriction in his diet. 4. Non-anion gap metabolic acidosis: Bicarbonate is down to 18 on the current chemistry secondary to renal failure and he is now receiving sodium bicarbonate containing fluids in view of renal failure, hyponatremia and mild acidosis. 5. Iron deficiency anemia: Transferrin saturation is less than 10%. I would plan to give him I.V. iron later on during this hospitalization. 6. Hypertension: Blood pressures were soft this afternoon, systolic was in the 90s. I am cutting down the dose of labetalol and I have added holding parameters and I am going to stop Verapamil for now. Given his current acute renal failure I do not want to tightly control his blood pressure. 7. Alcoholism: Withdrawal precautions as per primary team. Thank you for involving in the care of Mr. Geller. I will be happy to follow him along with you. NICKO
[2020-08-14] MEDS: ACETAMINOPHEN TAB 650MG DOSE (2X325MG) PO PRN ×2 (15:42→21:00)
[2020-08-14 19:26] LABS: HEMATOCRIT 31.2 % (42.0-52.0); MEAN CORPUSCULAR HEMOGLOBIN 30.9 pg (27.0-33.0); MEAN CORPUSCULAR HGB CONC 35.3 g/dl (32.0-36.5); MEAN CORPUSCULAR VOLUME 87.6 fl (80.0-96.0); PLATELET COUNT, AUTOMATED 131 10^3/uL (150-450); RED BLOOD COUNT 3.56 10^6/uL (4.30-6.10); WHITE BLOOD COUNT 4.1 10^3/uL (4.0-10.0)
[2020-08-14 19:45] LABS: BASOPHILS 1 % (0-1); EOSINOPHILS 1 % (0-3); LYMPHOCYTES 4 % (16-44); MONOCYTES 3 % (0-5); NEUTROPHILS 84 % (28-66)
[2020-08-14 19:46] LABS: PLATELET ESTIMATE DECREASED (NORMAL); TOXIC VACUOLATION 2+
[2020-08-14 19:50] LABS: ERYTHROCYTE SEDIMENTATION RATE 22 mm/hr (0-20)
--- NOTE | 2020-08-14 20:14 | REP ---
INDICATION: fever. COMPARISON: Comparison chest x-ray January 11, 2018. TECHNIQUE: Two views.. FINDINGS: Today's views are exposed at a somewhat lesser level of inspiration. The aorta is somewhat tortuous. Monitoring electrodes are seen. Heart is mildly enlarged. There is blunting of the posterior pleural angles on lateral radiograph. No focal infiltrate is seen. There is mild linear discoid atelectasis in the left base. IMPRESSION: Linear platelike atelectasis left base. Blunting of the posterior pleural angles on lateral radiograph and mild cardiomegaly.. <Electronically signed by Venkatesh Bush > 08/14/202009
[2020-08-14] MEDS ORDERED: VERAPAMIL 120 MG SR TAB PO SCH (21:00)
[2020-08-14] MEDS: PANTOPRAZOLE 40MG TAB (PROTONIX) PO SCH (21:01)
[2020-08-14] MEDS: LABETALOL 200 MG TAB PO SCH (21:02)
[2020-08-15] VITALS (7 sets, daily range): BP systolic 96–147; BP diastolic 57–84
[2020-08-15 05:55] LABS: HEMATOCRIT 29.1 % (42.0-52.0); HEMOGLOBIN 10.2 g/dl (13.5-17.5); MEAN CORPUSCULAR HGB CONC 35.1 g/dl (32.0-36.5); MEAN CORPUSCULAR VOLUME 88.4 fl (80.0-96.0); PLATELET COUNT, AUTOMATED 142 10^3/uL (150-450); RED BLOOD COUNT 3.29 10^6/uL (4.30-6.10); WHITE BLOOD COUNT 17.9 10^3/uL (4.0-10.0)
[2020-08-15 06:14] LABS: INR 1.4; PROTHROMBIN TIME 17.5 SECONDS (12.5-14.3)
[2020-08-15 06:15] LABS: PARTIAL THROMBOPLASTIN TIME 39.1 SECONDS (24.2-38.5)
[2020-08-15 06:38] LABS: ALBUMIN 2.1 GM/DL (3.2-5.2); BILIRUBIN,TOTAL 0.6 MG/DL (0.2-1.0); CALCIUM LEVEL 7.8 MG/DL (8.8-10.2); CREATININE FOR GFR 7.24 MG/DL (0.70-1.30); GLOMERULAR FILTRATION RATE 8.2 (>49); MAGNESIUM LEVEL 1.4 MG/DL (1.8-2.4); POTASSIUM SERUM 3.7 MEQ/L (3.5-5.1); TOTAL PROTEIN 5.2 GM/DL (6.4-8.2)
[2020-08-15] MEDS ORDERED: MAG SULF 1GM/100ML (MAG RUN) 1 GM in IV 1 EA IV ONE (07:30)
[2020-08-15] MEDS: DOCUSATE SODIUM 100MG CAPSULE PO SCH ×2 (08:29→20:13)
[2020-08-15] MEDS: LABETALOL 200 MG TAB PO SCH (08:30)
[2020-08-15] MEDS: THIAMINE 100 MG TAB PO SCH ×2 (08:33→20:13)
[2020-08-15] MEDS: FOLIC ACID 1 MG TAB PO SCH (08:33)
[2020-08-15] MEDS: MULTIVITAMINS/MINERALS THERAP 1 TAB PO SCH (08:33)
[2020-08-15] MEDS: MAGNESIUM OXIDE 400MG TAB (MAG-OX) PO SCH (08:33)
[2020-08-15] MEDS: SUCRALFATE 1 GM TAB PO SCH ×2 (08:33→20:13)
--- NOTE | 2020-08-15 08:36 | REP ---
INDICATION: fever of unknown origin wbc 17. COMPARISON: No comparison chest CT study. Comparison chest x-ray 08/14/2020.. TECHNIQUE: Helical scanning is acquired. 3 mm axial images are generated. Coronal and sagittal MPR images are generated. FINDINGS: Preliminary digital coder radiograph shows blunting of the right lateral pleural angle. There are moderate to advanced emphysematous changes in the upper lobes bilaterally, right more extensive than left. There are small bilateral pleural effusions. There is a tiny amount of pericardial fluid. Extensive vascular calcification is noted in the left and right coronary artery distribution. The right pleural effusion is slightly larger than the left. There is an area of volume loss and parenchymal opacification in the superior segment of the right lower lobe. Atelectasis combined with infiltrate suspected. There is some fissural fluid in the major and minor fissure on the right. No other infiltrate is seen. There is some minimal dependent atelectatic changes in the left lower lobe. No hilar or mediastinal mass or adenopathy is observed. The adrenal glands are normal. There is a 1.3 Cm low-density lesion in the left lobe of the liver consistent with a cyst. The visualized upper abdominal structures are otherwise unremarkable. IMPRESSION: Bilateral upper lobe emphysematous changes fairly advanced. Bilateral pleural effusions which are small, right larger than left. Atelectasis and or consolidation superior segment right lower lobe. Extensive coronary artery vascular calcification. <Electronically signed by Venkatesh Bush > 08/15/20 [id number]
--- NOTE | 2020-08-15 08:48 | REP ---
INDICATION: fever of unknown origin wbc 17. COMPARISON: 08/13/2020 TECHNIQUE: Noncontrast enhanced helical technique FINDINGS: The gallbladder wall is again seen to be thickened with slight pericholecystic edema slightly increased from the prior exam. A tiny calcification now appears to be present within the gallbladder lumen. The liver is unchanged, however, there is minimal fluid in Burroughs's pouch which has developed. There is no significant change in appearance of the pancreas. There is intrapancreatic ductal dilatation. Once again, calcifications are seen within and or abutting the pancreatic head also stable from an older CT of 01/11/2018. The spleen, adrenal glands, and kidneys are unchanged. The abdominal aorta and para-aortic regions are unchanged. There is no evidence of free air. There is a small amount of free fluid in the pelvis and within the right paracolic gutter. This has increased slightly from the latest prior exam. There is no significant change in the appearance of the bowel loops. There is no significant change in the imaged osseous structures. IMPRESSION: 1. Abnormal findings involving the gallbladder as described above. Seen on 1 image only a tiny calcific density is visualized not seen on the prior CTs. This could represent a cholelith. Consider ultrasonography. 2. Fluid collections as described above. 3. Chronic intrapancreatic ductal dilatation. 4. Other findings and exam limitations as described above. <Electronically signed by Gareth Ivey > 08/15/20 0839
[2020-08-15] MEDS: PIPERACILLIN/TAZOBACTAM SOD 2.25 GM in D5W MINI-BAG PLUS 50 ML IV SCH ×3 (09:40→20:13)
--- NOTE | 2020-08-15 10:58 | IPN ---
PROGRESS NOTE DATE: 08/14/2020 SUBJECTIVE: Patient had a temperature of 102.5 at 18:21 yesterday. Despite UA being ordered patient was oliguric and could not be sent. Two sets of blood cultures were sent. Chest x-ray was negative for any acute infiltrate. Patient this morning denies any chills. He has a cough which is dry. He currently denies any flank pain. He did complain of some dysuria after Gomez attempts were tried 2 days ago, but this has improved overnight. He continues to have elevated blood pressure and currently on labetalol and Verapamil, but he denies any chest pain, headaches, changes in vision, chest pressure or tightness. No dizziness or lightheadedness. OBJECTIVE: Vital signs: Temperature 97.6, T-max was 102.5 at 18:21 last evening, current pulse is 65, sinus rhythm, respiratory rate 18, blood pressure 111/66, 90% on room air. General: Anicteric, no jaundice. Dry mucous membranes. Neck: No JVD, thyromegaly, no cervical lymphadenopathy. Lungs: Clear to auscultation. There is no wheezing, rhonchi or rales. Heart: S1 and S2 sinus rhythm. Abdomen: Soft, nontender, nondistended, positive bowel sounds. No CVA tenderness. Extremities: No cyanosis or clubbing. LABORATORY DATA: White count 17.9, hemoglobin 10, hematocrit 29, platelet count 142. Sodium 124, potassium 3.7, chloride 91, bicarb 25, BUN 54, creatinine 7.24, glucose 97, magnesium 1.4. IMAGING STUDIES: CT abdomen and pelvis 08/15/2020: Shows choleliths of the gallbladder, chronic intrapancreatic ductal dilatation. CT chest: Moderate advanced emphysema in bilateral upper lobes, small bilateral pleural effusions right greater than left, atelectasis with infiltrate suspected in the right lower lobe, atelectasis in the left lower lobe, 1.3 cm low density left lobe of the liver consistent with cyst. ASSESSMENT: This 60-year-old with emphysema, alcohol abuse, chronic alcohol dependence presented with gross hematuria and found to have acute renal failure with gross hematuria with recent NSAID use. IMPRESSIONS: 1. Acute oliguric renal failure with recent NSAID use. 2. Fever 102.5 with questionable right lower lobe pneumonia. 3. COPD with bilateral emphysematous changes on CT chest. 4. Chronic pancreatitis. 5. Coronary artery disease. 6. Hypertension 7. Knee pain secondary to osteoarthritis. 8. Chronic hyponatremia. 9. NSAID abuse. PLAN: Patient remains oliguric despite I.V. fluids, will require dialysis. Dialysis catheter to be placed. General surgery or vascular surgery has been consulted. Patient is given Zosyn for possible right lower lobe infiltrate obtained 2 days after hospital admission which could be health care associated pneumonia. There is a chronic pancreatitis on CT; obtained blood cultures, still pending results. Supportive care with I.V. fluids for now. Patient's blood pressure has improved to 111/66 on current Verapamil and labetalol. Holding parameters have been placed. He is continued on magnesium supplement for low magnesium level. Bowel regimen, multivitamin, thiamine and folate and CIWA protocol with as needed Ativan. Patient's fever does not appear to be related to withdrawal symptoms as he does not complain of any tremors, restlessness, paresthesias, nausea, vomiting or abdominal pain. He does not have any urine at this time. MTDD
--- NOTE | 2020-08-15 13:34 | IPN ---
PROGRESS NOTE DATE: 08/14/2020 SUBJECTIVE: Patient seen and examined this morning at the bedside. He has had some improving urine output with 900 mL of urine today, but laboratory studies show no improvement in GFR. His serum sodium has improved up to 125. The patient himself denies any complaints. No shortness of breath beyond his usual baseline. I discussed with him again regarding possible need for dialysis. OBJECTIVE: VITAL SIGNS: Temperature 96.8, pulse 68, respiratory rate 18, blood pressure 132/65, saturating 93% to 94% on room air. INTAKE AND OUTPUT: Intake today so far is 1000. Urine output is 900 mL. Weight on the bed scale today 76.3 kg. GENERAL: The patient is seen lying flat in bed, elderly male, awake, alert, and oriented x3 and in no apparent distress. Appears somewhat older than stated age. HEENT: Extraocular muscles are intact. The tongue is moist. NECK: Supple. Jugular veins are not elevated. HEART: Sounds are regular. LUNGS: Show prolonged expiration and scattered rhonchus, but he is comfortable on room air. ABDOMEN: Soft and mildly tender in the epigastrium. There are bowel sounds. His bladder is not palpable. EXTREMITIES: Negative for clubbing, cyanosis, or edema. NEUROLOGIC: He is awake, alert, oriented x3, interactive and conversational. I do not appreciate any tremors or signs of withdrawal. SKIN: Warm and dry. LABORATORY DATA: Sodium 125, potassium 3.7, bicarbonate 20, BUN 48, creatinine 6.2. Magnesium 1.8, albumin 2.4, hemoglobin 11.0, platelets 131,000. IMAGING DATA: Chest x-ray done today shows blunting of the posterior pleural angles. INPATIENT MEDICATIONS: The patient is receiving bicarbonate drip at 40 mL/hour. The remainder of his medications are unchanged compared to yesterday. PROBLEMS: 1. Nonoliguric acute renal failure in this patient with a creatinine of 0.6 just very recently on 07/30/2020, now comes in with an admission creatinine of 5.5 with recent heavy use of ibuprofen (around 4000 mg per day for the past week) and patient also reports new gross hematuria. His urine specimen shows blood and protein along with leukocyte esterase and WBCs. His acute kidney injury may be NSAID-mediated. The other alternative is a glomerulonephritis. Serologies were sent off and C3 has returned back depressed. Further serologies are pending. However, the patient's urine output has improved today and I am continuing him on IV fluids and we will watch him closely for any developing dialysis needs. 2. Gross hematuria. The patient's urinalysis is active with blood, protein, WBC, and leukocyte esterase. His CT scan showed thickening of the bladder wall and he is a very heavy active smoker. He is going to need a cystoscopy as an outpatient and meanwhile inpatient, we will workup for glomerulonephritis given his acute renal failure and serologies are pending including JESUS, ANCA, compliments, etc. He denies any new pulmonary complaints and pulmonary renal syndrome is low on the list of differential diagnosis, but I have also sent off anti-GBM antibody. 3. Chronic hyponatremia in this patient who is known to be an alcoholic. He is asymptomatic and his sodium levels are improving up to 125 today. Continue with isotonic fluids presently on sodium bicarbonate drip. 4. Nonanion gap metabolic acidosis in the setting of renal failure. His bicarbonate level is improving. Continue with sodium bicarbonate drip at this time. 5. Iron deficiency anemia. Transferring saturation is less than 10%. However, his hemoglobins are stable and I am holding off on any IV iron at this time. 6. Hypertension. Blood pressures were initially soft and so I had cut down the labetalol dose and I had discontinued Verapamil; however, now his blood pressures have risen significantly with systolic in the 150s to 160s and I am resuming him back on his home regimen. MTDD
--- NOTE | 2020-08-15 13:55 | IPN ---
PROGRESS NOTE DATE: 08/15/2020 SUBJECTIVE: Patient seen and examined this morning at the bedside. He spiked fevers overnight, T-max was 101.2. He had blood cultures sent and came back with gram negative rods x2 sets and he is now on IV Zosyn. His blood work shows worsening renal function and I discussed with him today regarding dialysis initiation and he is agreeable to start. I also note increasing leukocytosis. The patient denies any new localizing pain, specifically denies any new abdominal pain. He reports chronic unchanged diarrhea. He went for baxter CT scan with CT of the chest, abdomen and pelvis this morning and they did show some signs of increasing fluid retention. OBJECTIVE: VITAL SIGNS: Temperature is 97.6, T-max 101.2, pulse is 68, respiratory rate 18, blood pressure is 111/66, saturating 90 to 94% on room air. INTAKE AND OUTPUT: Intake yesterday was 1280, urine output yesterday was 900, weight on the bed scale today is 75.5 kg. GENERAL: Patient is seen lying in bed awake, alert and oriented and in no apparent distress. HEENT: Extraocular muscles are intact. Tongue is moist. NECK: Jugular veins are not elevated. LUNGS: Occasional rhonchus but no crackle or rale. There are diminished breath sounds at the base and prolonged expiration. HEART: Regular, S1 and S2. There is no peripheral edema nor dependent edema. ABDOMEN: Soft and there is mild tenderness to deep palpation in the epigastrium. His bladder is not palpable. EXTREMITIES: Negative for clubbing, cyanosis or edema. NEUROLOGIC: He is awake, alert and oriented x3, interactive and conversational. LABORATORY DATA: Today's laboratory studies show a sodium of 124, potassium of 3.7, bicarbonate 25, BUN 54, creatinine 7.2, magnesium 1.4, albumin 2.1. Hemoglobin 10.2, platelets 142,000. Blood cultures showed gram negative rods x2 sets. Urine culture is pending. CT of the abdomen and pelvis non-contrast shows some mild new fluid collections and chronic intrapancreatic ductal dilatation. CT of the chest done today, non-contrast shows bilateral upper lobe emphysematous changes and bilateral small pleural effusions. INPATIENT MEDICATIONS: I discontinued the sodium bicarbonate drip. He is receiving magnesium sulfate 1 gram IV x1, Zosyn 2.25 gram IV q. 6 hourly. I discontinued the verapamil. His remainder of his medications are unchanged as compared to yesterday. PROBLEMS: 1. Acute renal failure in this patient with a baseline creatinine of 0.6 on July 30, 2020 possibly related to recent high dose NSAIDs along w/ newly discovered gram negative ahsan bacteremia. Cr upto 7.2 today although he is not oliguric. He has been adequately hydrated and in fact his CT scans today now show some mild signs of hypervolemia. I advised the patient that he will require dialysis initiation at present given worsening renal failure and he is agreeable. We will get a temporary dialysis catheter (not suitable for tunneled catheter in view of bacteremia) and I would plan to do a gentle first treatment today. 2. Gram negative ahsan bacteremia. The patient has been started on IV Zosyn. His urine culture is also pending. He is hemodynamically stable. I am stopping the Verapamil in view of bacteremia and I have added very generous holding parameters to his labetalol as well. Further workup of his bacteremia is as per primary service. 3. Chronic hyperosmolar hyponatremia. Sodium is slightly improved to 124 on labs today. We are going to be very careful while he is being dialyzed so that we do not over-correct the sodium. I am reducing the sodium in the dialysate bath and he will receive a gentle 2 hour prescription with a small dialyzer. I am additionally stopping the bicarbonate drip at this time. 4. Non-anion gap metabolic acidosis. His bicarbonate has improved up to 25 on the latest labs and I am stopping the bicarbonate containing fluids. He will have minimal fluid removed with dialysis today in view of bacteremia. 5. Hypomagnesemia. He is receiving IV supplementation. 6. Iron deficiency anemia, is not suitable for IV iron in view of active bacteremia. MTDD
--- NOTE | 2020-08-15 14:13 | REP ---
INDICATION: Line Placement. COMPARISON: Yesterday TECHNIQUE: Portable FINDINGS: The technique utilized in obtaining the radiograph has magnified the cardiac silhouette and accentuated the interstitial markings. Since the last examination a right-sided internal jugular multi lumen central venous catheter has been placed the tip of which is in the superior vena cava. There is no pneumothorax. There is cardiomegaly accentuated by technique. There are bibasilar opacities which are centrally unchanged, possibly minimally increased on the right. There is no change in the osseous structures. IMPRESSION: Central line placement and other findings as described above. <Electronically signed by Gareth Ivey > 08/15/20 [id number]
--- NOTE | 2020-08-15 14:23 | RO ---
OPERATIVE NOTE DATE OF OPERATION: 08/15/2020 PREOPERATIVE DIAGNOSIS: Renal failure. POSTOPERATIVE DIAGNOSIS: Renal failure. PROCEDURE: Right IJ dialysis catheter. SURGEON: Carlos Enrique Lawler DO, [facility] SPECIALIST: none ANESTHESIA: 1% Lidocaine 5 mL instilled subcutaneously. Consent written and placed in the chart. DESCRIPTION OF PROCEDURE: After informed consent was reviewed with the patient he was laid in the supine position. Time-out was performed with two patient identifiers, identifying correct site and correct procedure. Right IJ was prepped and draped in a sterile manner with chlorhexidine and full barrier precautions. A fairly large sternocleidomastoid so I took the posterior approach with ultrasound. The [employer] syringe was used to enter the IJ. There was return of venous blood flow. The wire was easily fed through the needle and the needle was removed. Dilators from the kit were used and then the [employer] [place] catheter was placed a 15 cm double lumen dialysis catheter. Wire was removed. Both ports returned venous blood flow. First flushed with saline, then flushed with 1.0 mL of Heparin for the arterial port and 1.2 mL for the venous port. Sterile caps were applied. Sutured in at 15 cm. Post-procedure chest x-ray shows adequate placed. Sterile impregnated dressing was placed over the site. There were no observed complications. [facility] NETWORKPiotr
[2020-08-15] MEDS ORDERED: NS 1,000 ML IV SCH (15:50)
[2020-08-15] MEDS: PANTOPRAZOLE 40MG TAB (PROTONIX) PO SCH (20:13)
[2020-08-15] MEDS: ACETAMINOPHEN TAB 650MG DOSE (2X325MG) PO PRN (20:16)
[2020-08-16] MEDS ORDERED: RAMELTEON 8 MG TAB (ROZEREM) PO ONE (00:30)
[2020-08-16] MEDS: PIPERACILLIN/TAZOBACTAM SOD 2.25 GM in D5W MINI-BAG PLUS 50 ML IV SCH ×4 (02:05→23:23)
[2020-08-16] MEDS: ACETAMINOPHEN TAB 650MG DOSE (2X325MG) PO PRN (02:06)
[2020-08-16 04:00] VITALS: BP 158/86
[2020-08-16 06:04] LABS: HEMATOCRIT 26.9 % (42.0-52.0); HEMOGLOBIN 9.6 g/dl (13.5-17.5); MEAN CORPUSCULAR HEMOGLOBIN 31.3 pg (27.0-33.0); MEAN CORPUSCULAR HGB CONC 35.7 g/dl (32.0-36.5); MEAN CORPUSCULAR VOLUME 87.6 fl (80.0-96.0); PLATELET COUNT, AUTOMATED 167 10^3/uL (150-450); RED BLOOD COUNT 3.07 10^6/uL (4.30-6.10); WHITE BLOOD COUNT 14.3 10^3/uL (4.0-10.0)
[2020-08-16 06:38] LABS: BILIRUBIN,TOTAL 0.5 MG/DL (0.2-1.0); CALCIUM LEVEL 7.5 MG/DL (8.8-10.2); CREATININE FOR GFR 5.73 MG/DL (0.70-1.30); GLOMERULAR FILTRATION RATE 10.8 (>49); MAGNESIUM LEVEL 1.7 MG/DL (1.8-2.4); POTASSIUM SERUM 3.7 MEQ/L (3.5-5.1)
[2020-08-16 06:42] LABS: INR 1.41; PROTHROMBIN TIME 17.5 SECONDS (12.5-14.3)
[2020-08-16 06:43] LABS: PARTIAL THROMBOPLASTIN TIME 41.7 SECONDS (24.2-38.5)
--- NOTE | 2020-08-16 07:25 | IPNPDOC ---
Date Seen The patient was seen on 08/16/20. Progress Note SUBJECTIVE: slight cough with scant sputum no fever or chills. no sob. HD cath right neck yesterday no pain. no tremors or etoh withdrawal sx's day 2 zosyn RLL PNA neg mrsa dced vanco OBJECTIVE: Vital signs: see below General: Anicteric, no jaundice. Dry mucous membranes. no respiratory distress Neck: No JVD, thyromegaly, no cervical lymphadenopathy. Lungs: fine crackles right base There is no wheezing, rhonchi or rales. Heart: S1 and S2 sinus rhythm. Abdomen: Soft, nontender, nondistended, positive bowel sounds. No CVA tenderness. Extremities: No cyanosis or clubbing. labs/micro: reviewed CT chest: Moderate advanced emphysema in bilateral upper lobes, small bilateral pleural effusions right greater than left, atelectasis with infiltrate suspected in the right lower lobe, atelectasis in the left lower lobe, 1.3 cm low density left lobe of the liver consistent with cyst. ASSESSMENT: This 60-year-old with emphysema, alcohol abuse, chronic alcohol dependence presented with gross hematuria and found to have acute renal failure with gross hematuria with recent NSAID use. IMPRESSIONS: 1. Acute oliguric renal failure with recent NSAID use. now requiring HD s/p dialysis cath placed 08/15/20 2. Fever 102.5 right lower lobe pneumonia.mrsa neg on zosyn day 2 3. COPD with bilateral emphysematous changes on CT chest. 4. Chronic pancreatitis. 5. Coronary artery disease. 6. Hypertension 7. Knee pain secondary to osteoarthritis. 8. Chronic hyponatremia. 9. NSAID abuse. 10. Hypomagnesemia 11. Metabolic acidosis PLAN: Patient remains oliguric despite I.V. fluids, nephrology to arrange for dialysis. Dialysis catheter placed 08/15/[address] Lawler. on Zosyn for right lower lobe infiltrate He is continued on magnesium supplement for low magnesium level. Bowel regimen, multivitamin, thiamine and folate and CIWA protocol with as needed Ativan. will need to stay over the weekend. VS, I&O, 24H, Fishbone Vital Signs/I&O Vital Signs Date Time Temp Pulse Resp B/P (MAP) Pulse Ox O2 Delivery O2 Flow Rate FiO2 08/16/20 04:00 97.6 67 18 158/86 (110) 92 Room Air I&O- Last 24 Hours up to 6 AM 08/16/20 06:00 Intake Total 2025 ml Output Total 425 ml Balance 1600 ml Laboratory Data 24H LABS Laboratory Tests 2 08/15/20 11:09: Methicillin-Resist S.aureus DNA PCR NOT DETECTED 08/15/20 12:31: Urine Color REDH, Urine Appearance CLOUDYH, Urine pH 6.0, Urine Specific [place] 1.011, Urine Protein 2+H, Urine Glucose (UA) NEGATIVE, Urine Ketones NEGATIVE, Urine Blood 3+H, Urine Nitrite NEGATIVE, Urine Bilirubin NEGATIVE, Urine Urobilinogen 0.2, Urine Leukocyte Esterase 3+H, Urine WBC (Auto) TNTCH, Urine RBC (Auto) TNTCH, Urine Hyaline Casts (Auto) 0, Urine Bacteria (Auto) 1+H, Urine Squamous Epithelial Cells 0, Urine Mucus (Auto) SMALL, Urine Yeast-Like Cells (Auto) SMALLH, Urine Sperm (Auto) 08/16/20 05:45: Nucleated Red Blood Cells % (auto) 0.0, Prothrombin Time 17.5H, Prothromb Time International Ratio 1.41, Activated Partial Thromboplast Time 41.7H, Anion Gap 8, Glomerular Filtration Rate 10.8L, Calcium Level 7.5L, Magnesium Level 1.7L, Total Bilirubin 0.5, Aspartate Amino Transf (AST/SGOT) 17, Alanine Aminotransferase (ALT/SGPT) 15, Alkaline Phosphatase 83, Total Protein 5.0L, Albumin 2.0L, Albumin/Globulin Ratio 0.7 CBC/BMP Laboratory Tests 08/16/20 05:45 Microbiology Microbiology 08/15/20 Urine Culture, Received Pending 08/14/20 Blood Culture - Preliminary, Resulted 08/14/20 Blood Culture - Preliminary, Resulted 08/14/20 Urine Culture, Received Pending CARMINA LA MD Aug 16, 2020 07:15
[2020-08-16] MEDS ORDERED: METOCLOPRAMIDE INJ 10MG/2ML VIAL (J2765 PER 1) IV ONE ×2 (07:45→18:00)
[2020-08-16] MEDS ORDERED: FIORICET TAB PO ONE ×2 (07:45→18:00)
[2020-08-16] MEDS ORDERED: MAG SULF 1GM/100ML (MAG RUN) 1 GM in IV 1 EA IV ONE (07:45)
[2020-08-16 08:00] VITALS: BP 153/86
[2020-08-16] MEDS: DOCUSATE SODIUM 100MG CAPSULE PO SCH ×2 (09:57→20:11)
[2020-08-16] MEDS: MULTIVITAMINS/MINERALS THERAP 1 TAB PO SCH (09:57)
[2020-08-16] MEDS: FOLIC ACID 1 MG TAB PO SCH (09:57)
[2020-08-16] MEDS: MAGNESIUM OXIDE 400MG TAB (MAG-OX) PO SCH (09:57)
[2020-08-16] MEDS: SUCRALFATE 1 GM TAB PO SCH ×2 (09:57→20:11)
[2020-08-16 16:07] LABS: ANA (HEP2) Negative (.); HEPATITIS B CORE ANTIBODY IGG Negative (Negative)
[2020-08-16 17:16] VITALS: BP 168/78
[2020-08-16] MEDS ORDERED: MORPHINE 2 MG/ML 1ML VIAL (J2270) IV ONE (18:00)
[2020-08-16] MEDS ORDERED: cloNIDine 0.1MG TABLET PO ONE (18:00)
[2020-08-16] MEDS: PANTOPRAZOLE 40MG TAB (PROTONIX) PO SCH (20:11)
[2020-08-16 22:00] VITALS: BP 151/84
[2020-08-17] MEDS ORDERED: IPRATROPIUM 0.5MG/ALBUTEROL 2.5MG INH SOL UD 3ML (DUONEB) NEB PRN (05:05)
[2020-08-17] MEDS: PIPERACILLIN/TAZOBACTAM SOD 2.25 GM in D5W MINI-BAG PLUS 50 ML IV SCH (05:33)
[2020-08-17 06:00] VITALS: BP 162/88
[2020-08-17 07:29] LABS: HEMATOCRIT 29.5 % (42.0-52.0); HEMOGLOBIN 9.9 g/dl (13.5-17.5); MEAN CORPUSCULAR HEMOGLOBIN 30.6 pg (27.0-33.0); MEAN CORPUSCULAR HGB CONC 33.6 g/dl (32.0-36.5); PLATELET COUNT, AUTOMATED 199 10^3/uL (150-450); RED BLOOD COUNT 3.24 10^6/uL (4.30-6.10); WHITE BLOOD COUNT 16.3 10^3/uL (4.0-10.0)
[2020-08-17 07:36] LABS: INR 1.34; PROTHROMBIN TIME 16.8 SECONDS (12.5-14.3)
[2020-08-17 07:37] LABS: PARTIAL THROMBOPLASTIN TIME 43.2 SECONDS (24.2-38.5)
[2020-08-17 07:51] LABS: ALBUMIN 2.1 GM/DL (3.2-5.2); BILIRUBIN,TOTAL 0.5 MG/DL (0.2-1.0); CALCIUM LEVEL 8.2 MG/DL (8.8-10.2); CREATININE FOR GFR 4.57 MG/DL (0.70-1.30); POTASSIUM SERUM 3.7 MEQ/L (3.5-5.1); TOTAL PROTEIN 5.3 GM/DL (6.4-8.2)
[2020-08-17] MEDS: MULTIVITAMINS/MINERALS THERAP 1 TAB PO SCH (08:48)
[2020-08-17] MEDS: FOLIC ACID 1 MG TAB PO SCH (08:48)
[2020-08-17] MEDS: DOCUSATE SODIUM 100MG CAPSULE PO SCH ×2 (08:48→21:00)
[2020-08-17] MEDS: MAGNESIUM OXIDE 400MG TAB (MAG-OX) PO SCH (08:48)
[2020-08-17] MEDS: SUCRALFATE 1 GM TAB PO SCH ×2 (08:48→21:23)
--- NOTE | 2020-08-17 09:17 | IPNPDOC ---
Date Seen The patient was seen on 08/17/20. Progress Note SUBJECTIVE: hypoxic 84% on room air, given 2liters. still sob with cough. urine/blood cx: klebsiella. s/p zosyn. on iv ceftriaxone. does not want his oxygen on. no cp,pressure, fever, or chills. OBJECTIVE: Vital signs: see below General: Anicteric, no jaundice. Dry mucous membranes. no respiratory distress Neck: No JVD, thyromegaly, no cervical lymphadenopathy. Lungs:diminished Heart: S1 and S2 sinus rhythm. Abdomen: Soft, nontender, nondistended, positive bowel sounds. No CVA tenderness. Extremities: No cyanosis or clubbing. labs/micro: reviewed CT chest: Moderate advanced emphysema in bilateral upper lobes, small bilateral pleural effusions right greater than left, atelectasis with infiltrate suspected in the right lower lobe, atelectasis in the left lower lobe, 1.3 cm low density left lobe of the liver consistent with cyst. ASSESSMENT: This 60-year-old with emphysema, alcohol abuse, chronic alcohol dependence presented with gross hematuria and found to have acute renal failure with gross hematuria with recent NSAID use. IMPRESSIONS: 1. Acute oliguric renal failure with recent NSAID use. now requiring HD s/p dialysis cath placed 08/15/20 2. Fever 102.5 right lower lobe pneumonia.mrsa neg s/p zosyn x3days, on iv ceftriaxone day 1 3. COPD with bilateral emphysematous changes on CT chest. 4. Chronic pancreatitis. 5. Coronary artery disease. 6. Hypertension 7. Knee pain secondary to osteoarthritis. 8. Chronic hyponatremia. 9. NSAID abuse. 10. Hypomagnesemia 11. Metabolic acidosis 12. Klebsiella UTI present on admission 13. Transient Klebsiella Bacteremia from UTI PLAN: Dialysis catheter placed 08/15/[address] Lawler. HD managed by nephrology s/p 3 days iv zosyn for RLL PNA now on iv ceftriaxone day 1 for klebsiella uti/transient bacteremia . supplemental o2 to keep o2 sat>90%. Bowel regimen, multivitamin, thiamine and folate and CIWA protocol with as needed Ativan. will need to stay over the weekend. VS, I&O, 24H, Fishbone Vital Signs/I&O Vital Signs Date Time Temp Pulse Resp B/P (MAP) Pulse Ox O2 Delivery O2 Flow Rate FiO2 08/17/20 08:50 78 136/78 08/17/20 06:00 97.8 20 89 Room Air 2.0 I&O- Last 24 Hours up to 6 AM 08/17/20 05:59 Intake Total 930 ml Output Total 550 ml Balance 380 ml Laboratory Data 24H LABS Laboratory Tests 2 08/17/20 06:45: Nucleated Red Blood Cells % (auto) 0.0, Prothrombin Time 16.8H, Prothromb Time International Ratio 1.34, Activated Partial Thromboplast Time 43.2H, Anion Gap 8, Glomerular Filtration Rate 14.0L, Calcium Level 8.2L, Magnesium Level 2.0, Total Bilirubin 0.5, Aspartate Amino Transf (AST/SGOT) 13, Alanine Aminotransferase (ALT/SGPT) 15, Alkaline Phosphatase 81, Total Protein 5.3L, Albumin 2.1L, Albumin/Globulin Ratio 0.7 CBC/BMP Laboratory Tests 08/17/20 06:45 Microbiology Microbiology 08/15/20 Urine Culture, Received Pending 08/14/20 Blood Culture - Final, Complete Klebsiella Oxytoca 08/14/20 Blood Culture - Final, Complete Klebsiella Oxytoca 08/14/20 Urine Culture - Final, Complete Klebsiella Oxytoca CARMINA LA MD Aug 17, 2020 09:17
--- NOTE | 2020-08-17 09:39 | IPN ---
PROGRESS NOTE DATE: 08/16/2020 SUBJECTIVE: The patient was seen and examined this morning at the bedside and then later he was seen again in the hemodialysis unit receiving his treatment. Receiving his second dialysis treatment. He had his first dialysis treatment yesterday without any issues. He remains afebrile the past 24 hours and hemodynamically stable and is also oliguric. He offers no complaints, specifically no chills. No new shortness of breath, no chest pain nor abdominal pain. OBJECTIVE: Vital signs: Temperature 98.0, pulse 78, respiratory rate 18, blood pressure 168/78, saturating 94% on room air. Intake is recorded as 1.3 liters yesterday. Urine output 225. Weight in the bed scale is 80.8 kg. General: The patient is seen awake, alert, oriented x3, comfortable, in no apparent distress. His sister was visiting with him during his last dialysis treatment. His extraocular muscles are intact. Tongue is moist. There is a temporary hemodialysis catheter in the right IJ, which is presently in use. Lungs show prolonged expiration and occasional rhonchus, but no crackles or rales. Heart sounds are regular. S1, S2. There is no peripheral edema. No dependent edema. Abdomen is soft, not tender to palpation. Extremities are negative for clubbing or cyanosis. Neurologic: He is awake, alert and oriented x3, interactive, conversational. Skin: Warm and dry. LABORATORY DATA: White count 14.3, hemoglobin 9.6, platelets 167. Sodium 126, potassium 3.7, BUN 43, creatinine 5.7, magnesium 1.7. Blood culture, two sets, both growing gram-negative rods since August 14. INPATIENT MEDICATIONS: Reviewed by myself: He continues on IV Zosyn: He received a dose of Reglan. His remainder of medications are unchanged as compared to yesterday. PROBLEMS: 1. Acute renal failure in this patient with baseline creatinine of 0.6 on July 30 in the setting of prolonged high dose NSAIDs at home (ibuprofen 4000 mg a day for about one week) and also in the setting of gram-negative ahsan bacteremia. The patient initially was receiving IV fluids, but remained oliguric and is now mildly hypervolemic. He was started on dialysis on August 15 and had his second treatment today. He has not had much fluid removal and orders are written to avoid rapid shifts in his sodium level given his chronic hyponatremia. There are no signs of renal recovery. Serologies were also sent off and his C3 did return low. Given his renal failure along with the bacteremia, I feel he should probably have an echocardiogram. 2. Gram-negative ahsan bacteremia. The patient had CT chest with consolidation in the right lower lobe, but he denied any pneumonia symptoms. Has always stated that his shortness of breath feels his usual baseline, which he attributes to his more than 80 pack year smoking history. He is on IV Zosyn per the primary service. Repeat cultures have not yet been sent. He is now afebrile and white count is down trending. I have held his blood pressure medications in view of bacteremia. 3. Chronic hyposmolar, hyponatremia. Sodium level has come up to 126 on the latest labs. Orders for dialysis were written to avoid rapid shifts in his sodium levels given his penitentiary chronic hyponatremia related to his alcoholism. His sodium on older labs going back to 2015 is almost always less than 35. 4. Iron deficiency anemia. He is not suitable for IV iron in view of active bacteremia. His hemoglobin is slowly downward trending, but no need for blood transfusion at this time. There is likely also an aspect of hemodilution. 5. Depressed C3. Given his bacteremia and renal failure and active urine sediment with blood and protein, he may infection related glomerulonephritis and I also suggest to get an echocardiogram.
--- NOTE | 2020-08-17 09:39 | REP ---
INDICATION: hypoxic sob. COMPARISON: Comparison study August 15, 2020. TECHNIQUE: Portable upright AP chest radiograph. FINDINGS: A right internal jugular central venous line terminates in the expected location of the SVC. The left lung remains essentially clear. Very subtle hazy opacity at the lateral pleural angle. There is blunting of the right lateral pleural angle which is increased from the August 15, 2020 study consistent with increasing right pleural effusion. There is also a skin fold on the long the right lateral chest wall. Some fissural fluid is seen at the right base. The heart is enlarged unchanged. Pulmonary vasculature is cephalized.. IMPRESSION: CHF pattern with cardiomegaly and increasing right pleural effusion. Vascular congestion. No definite acute infiltrate.. <Electronically signed by Venkatesh Bush > 08/17/20 0922
[2020-08-17] MEDS: cefTRIAXone SOD 2 GM in D5W MINI-BAG PLUS 50 ML IV SCH (11:32)
[2020-08-17] MEDS: IPRATROPIUM 0.5MG/ALBUTEROL 2.5MG INH SOL UD 3ML (DUONEB) NEB SCH ×4 (13:14→23:19)
[2020-08-17 14:00] VITALS: BP 148/84
[2020-08-17] MEDS: FIORICET TAB PO PRN (17:27)
[2020-08-17] MEDS ORDERED: METOCLOPRAMIDE INJ 10MG/2ML VIAL (J2765 PER 1) IV ONE (17:30)
--- NOTE | 2020-08-17 17:43 | IPN ---
PROGRESS NOTE DATE: 08/17/2020 SUBJECTIVE: Mr. Geller is seen this morning on his bedside. He is feeling about the same. Denies any nausea or vomiting. He was dialyzed yesterday due to acute renal failure. PHYSICAL EXAMINATION: Temperature 97.8 degrees Fahrenheit, heart rate 78 per minute, respiratory rate 20 per minute, blood pressure 136/78 mmHg, oxygen saturation 89% on room air. HEAD: Atraumatic. NECK: Supple and jugular venous distention (JVD) difficult to be assessed. Hemodialysis present in right upper chest. LUNGS: Clear to auscultation. ABDOMEN: Soft and ascites is present. Bowel sounds are normal. EXTREMITIES: Without any cyanosis or clubbing. LABORATORY STUDIES: Today's labs show WBC 6.3, hemoglobin 9.9 and hematocrit 29.5, platelets 199. Sodium 130, potassium 3.7, BUN 26, creatinine 4.57, glucose 106, calcium 8.2. PROBLEMS: 1. Oliguric acute renal failure. Patient has been dialyzed and will plan next dialysis on Wednesday. There is no emergent need for dialysis today. 2. Hyponatremia. His sodium level has improved up to 130 and likely to improve further with dialysis treatment. 3. Anemia. At present, his anemia is stable and does not need any urgent intervention. 4. Hepatic insufficiency with cirrhosis and hypoalbuminemia. Patient is likely to benefit from increased protein intake. We will consider giving him intravenous albumin with dialysis if needed.
[2020-08-17] MEDS ORDERED: RIZATRIPTAN BENZOATE 10 MG TAB PO ONE (18:00)
[2020-08-17] MEDS: TIOTROPIUM INHALER/CAPSULE (SPIRIVA) INH SCH (20:15)
[2020-08-17] MEDS: PANTOPRAZOLE 40MG TAB (PROTONIX) PO SCH (21:23)
[2020-08-17 22:00] VITALS: BP 136/70
[2020-08-18] VITALS (7 sets, daily range): BP systolic 141–179; BP diastolic 83–95
[2020-08-18] MEDS ORDERED: methylPREDNISolone 125MG 2ML VIAL IV STA (01:25)
[2020-08-18] MEDS ORDERED: ALBUTEROL 90 MCG/ACT 8GM HFA INHALER INH PRN (01:25)
[2020-08-18 02:13] LABS: VENOUS BASE EXCESS -1.4 (-2.0-2.0); VENOUS HCO3 23.8 MEQ/L (23.0-27.0); VENOUS PARTIAL PRESSURE CO2 41.9 mmHg (38.0-50.0); VENOUS PARTIAL PRESSURE O2 29.5 mmHg (30.0-50.0); VENOUS PH 7.372 UNITS (7.330-7.430); VENOUS STANDARD HCO3 22.5 MEQ/L; VENOUS TOTAL CO2 25.1 MEQ/L (24.0-28.0)
--- NOTE | 2020-08-18 02:27 | REPVR ---
PROCEDURE INFORMATION: Exam: XR Chest Exam date and time: 08/18/2020 1:53 AM Age: 60 years old Clinical indication: Other: Hypoxia TECHNIQUE: Imaging protocol: XR of the chest. Views: 1 view. COMPARISON: ID PORTABLE CHEST X-RAY 08/17/2020 9:16 AM FINDINGS: Tubes, catheters and devices: Right IJ central venous line in the mid SVC. No new abnormalities. Lungs: Partial improvement of airspace consolidation in the right lung base. Mild pulmonary edema. Pleural spaces: Small pleural effusions. No pneumothorax. Heart/Mediastinum: Unremarkable. No cardiomegaly. Bones/joints: Unremarkable. IMPRESSION: 1. Partial improvement of right basilar pneumonia. 2. Mild pulmonary edema. Electronically signed by: Nabor Keller On 08/18/2020 02:28:02 AM
[2020-08-18] MEDS: IPRATROPIUM 0.5MG/ALBUTEROL 2.5MG INH SOL UD 3ML (DUONEB) NEB SCH ×6 (02:54→23:32)
[2020-08-18 03:27] LABS: ABG BASE EXCESS -1.9 (-2.0-2.0); ABG HCO3 20.9 MEQ/L (22.0-26.0); ABG O2 SATURATION 85.1 % (95.0-99.0); ABG PARTIAL PRESSURE CO2 29.1 mmHg (35.0-45.0); ABG STANDARD HCO3 22.7 MEQ/L (22.0-26.0); ABG TOTAL CO2 21.8 MEQ/L (23.0-31.0); ABG pH (ARTERIAL) 7.474 UNITS (7.350-7.450)
[2020-08-18 03:32] LABS: ABG PARTIAL PRESSURE O2 46.6 mmHg (75.0-100.0)
[2020-08-18] MEDS ORDERED: FUROSEMIDE 100MG/10ML VIAL (J1940) IV ONE (04:35)
[2020-08-18 05:32] LABS: HEMATOCRIT 29.9 % (42.0-52.0); HEMOGLOBIN 10.3 g/dl (13.5-17.5); MEAN CORPUSCULAR HEMOGLOBIN 30.7 pg (27.0-33.0); MEAN CORPUSCULAR HGB CONC 34.4 g/dl (32.0-36.5); MEAN CORPUSCULAR VOLUME 89.3 fl (80.0-96.0); PLATELET COUNT, AUTOMATED 225 10^3/uL (150-450); RED BLOOD COUNT 3.35 10^6/uL (4.30-6.10); WHITE BLOOD COUNT 19.9 10^3/uL (4.0-10.0)
[2020-08-18 06:01] LABS: ALBUMIN 2.3 GM/DL (3.2-5.2); BILIRUBIN,TOTAL 0.5 MG/DL (0.2-1.0); CALCIUM LEVEL 8.4 MG/DL (8.8-10.2); CREATININE FOR GFR 5.36 MG/DL (0.70-1.30); GLOMERULAR FILTRATION RATE 11.7 (>49); MAGNESIUM LEVEL 1.8 MG/DL (1.8-2.4); POTASSIUM SERUM 3.8 MEQ/L (3.5-5.1); TOTAL PROTEIN 5.6 GM/DL (6.4-8.2)
[2020-08-18] MEDS ORDERED: POTASSIUM CHLORIDE 10 MEQ SR TABLET PO ONE (07:15)
[2020-08-18] MEDS ORDERED: predniSONE 20 MG TAB PO SCH (09:00)
--- NOTE | 2020-08-18 09:30 | IPNPDOC ---
Date Seen The patient was seen on 08/18/20. Progress Note SUBJECTIVE: remained hypoxic needed vapotherm overnight due to fluid overload w emergent HD this am. no f/c. still on iv ceftriaxone for klebsiella in urine, rLL PNA, and transient bacteremia from uti. denies n/v/abd pain/dysuria. OBJECTIVE: Vital signs: see below General: Anicteric, no jaundice. moist mucous membranes.+ use resp acc mm Neck: + JVD, thyromegaly, no cervical lymphadenopathy. right HD catheter Lungs:bl rales diminished Heart: S1 and S2 sinus rhythm. Abdomen: Soft, nontender, nondistended, positive bowel sounds. No CVA tenderness. Extremities: No cyanosis or clubbing. labs/micro: reviewed CT chest: Moderate advanced emphysema in bilateral upper lobes, small bilateral pleural effusions right greater than left, atelectasis with infiltrate suspected in the right lower lobe, atelectasis in the left lower lobe, 1.3 cm low density left lobe of the liver consistent with cyst. ASSESSMENT: This 60-year-old with emphysema, alcohol abuse, chronic alcohol dependence presented with gross hematuria and found to have acute renal failure with gross hematuria with recent NSAID use. IMPRESSIONS: 1. Acute oliguric renal failure with recent NSAID use. now requiring HD s/p di alysis cath placed 08/15/20 2. Fever 102.5 right lower lobe pneumonia.mrsa neg s/p zosyn x3days, on iv ceftriaxone day 2,a dded doxycycline day #1 3. COPD with bilateral emphysematous changes on CT chest. 4. Chronic pancreatitis. 5. Coronary artery disease. 6. Hypertension 7. Knee pain secondary to osteoarthritis. 8. Chronic hyponatremia. 9. NSAID abuse. 10. Hypomagnesemia 11. Metabolic acidosis 12. Klebsiella UTI present on admission s/p 3 days zosyn, day2 ceftriaxone 13. Transient Klebsiella Bacteremia from UTIs/p 3 days zosyn, day2 ceftriaxone 14. Acute hypoxic respiratory failure due to RLL PNA, fluid overload from renal failure on HD PLAN: Dialysis catheter placed 08/15/[address] Lawler. HD managed by nephrology s/p 4 days iv zosyn for RLL PNA. need HD due to hypoxemia. will most likely need HD as outpt once discharged. echo pending to evaluate systolic function. tele now on iv ceftriaxone day 2 for klebsiella uti/transient bacteremia . supplemental o2 to keep o2 sat>90%. Bowel regimen, multivitamin, thiamine and folate and CIWA protocol with as needed Ativan. VS, I&O, 24H, Fishbone Vital Signs/I&O Vital Signs Date Time Temp Pulse Resp B/P (MAP) Pulse Ox O2 Delivery O2 Flow Rate FiO2 08/18/20 07:46 96.8 78 20 161/83 (109) 99 High Flow Cannula 15.0 08/18/20 04:09 80 I&O- Last 24 Hours up to 6 AM 08/18/20 06:00 Intake Total 1010 ml Output Total 350 ml Balance 660 ml Laboratory Data 24H LABS Laboratory Tests 2 08/18/20 01:43: WO-Mrt-P-Type Natriuretic Peptide 11822N 08/18/20 01:45: Blood Gas Bicarbonate Standard 22.5, Venous Blood pH 7.372, Venous Blood Partial Pressure CO2 41.9, Venous Blood Partial Pressure O2 29.5L, Venous Blood Total Carbon Dioxide 25.1, Venous Blood HCO3 23.8, Venous Blood Oxygen Saturation 52.0L, Venous Blood Base Excess -1.4 08/18/20 03:20: Blood Gas Bicarbonate Standard 22.7, Arterial Blood pH 7.474H, Arterial Blood Pa rtial Pressure CO2 29.1L, Arterial Blood Partial Pressure O2 46.6*L, Arterial Blood Total CO2 21.8L, Arterial Blood HCO3 20.9L, Arterial Blood Base Excess - 1.9, Arterial Blood Oxygen Saturation 85.1L 08/18/20 05:20: Nucleated Red Blood Cells % (auto) 0.0, Anion Gap 11, Glomerular Filtration Rate 11.7L, Calcium Level 8.4L, Magnesium Level 1.8, Total Bilirubin 0.5, Aspartate Amino Transf (AST/SGOT) 19, Alanine Aminotransferase (ALT/SGPT) 13, Alkaline Phosphatase 92, Total Protein 5.6L, Albumin 2.3L, Albumin/Globulin Ratio 0.7 CBC/BMP Laboratory Tests 08/18/20 05:20 Microbiology Microbiology 08/15/20 Urine Culture - Final, Complete Klebsiella Oxytoca 08/14/20 Blood Culture - Final, Complete Klebsiella Oxytoca 08/14/20 Blood Culture - Final, Complete Klebsiella Oxytoca 08/14/20 Urine Culture - Final, Complete Klebsiella Oxytoca CARMINA LA MD Aug 18, 2020 09:30
[2020-08-18] MEDS ORDERED: HEPARIN SOD (PORCINE) 5000UNITS/ML 1ML VIAL/SYRINGE As Ordered ONE (09:48)
[2020-08-18] MEDS: MULTIVITAMINS/MINERALS THERAP 1 TAB PO SCH (10:37)
[2020-08-18] MEDS: SUCRALFATE 1 GM TAB PO SCH ×2 (10:37→20:56)
[2020-08-18] MEDS: MAGNESIUM OXIDE 400MG TAB (MAG-OX) PO SCH (10:38)
[2020-08-18] MEDS: DOCUSATE SODIUM 100MG CAPSULE PO SCH ×2 (10:38→20:56)
[2020-08-18] MEDS: cefTRIAXone SOD 2 GM in D5W MINI-BAG PLUS 50 ML IV SCH (10:39)
[2020-08-18] MEDS: FOLIC ACID 1 MG TAB PO SCH (10:39)
[2020-08-18] MEDS: TIOTROPIUM INHALER/CAPSULE (SPIRIVA) INH SCH (10:49)
[2020-08-18] MEDS: FORMOTEROL FUMARATE 20 MCG/2 ML INHALATION SOLUTION (PERFOROMIST) NEB SCH ×2 (10:49→18:20)
--- NOTE | 2020-08-18 11:23 | IPN ---
PROGRESS NOTE DATE: 08/18/2020 SUBJECTIVE: Mr. Geller is seen this morning on his bedside. I was called earlier by hospitalist about 4:30 this morning to report that patient developed worsening hypoxemia requiring increased amount of oxygen supplementation. His chest x-ray was done, which did show some pulmonary edema and he was also noticed to have elevated BNP level of about 42,000. Patient has been oliguric and did not respond to I.V. Lasix that was given earlier. We have arranged for urgent hemodialysis, and in fact dialysis is being prepared on his bedside right now. Patient is lying in the bed supine and using oxygen via high-flow nasal cannula. He denies any fever or chills. PHYSICAL EXAMINATION: VITALS: Temperature 96.8 degrees Fahrenheit, heart rate 78 per minute, respiratory rate 20 per minute, blood pressure 167/93 mmHg and oxygen saturation 99% on 15 liters of oxygen via high-flow nasal cannula. HEENT: Head is atraumatic. Dialysis catheter in right internal jugular vein is noticed. Neck veins are difficult to be assessed. LUNGS: Bilateral rales. HEART: Sounds are regular. ABDOMEN: Soft and nontender. Ascites present. EXTREMITIES: Without any cyanosis or clubbing. NEUROLOGIC: He is awake and without a focal deficit. LABORATORY STUDIES: Today's labs show Sodium 129, potassium 3.8, chloride 94, CO2 24, BUN 34 and creatinine 5.36. Glucose 121 and calcium 8.4. Total protein 5.6 and albumin 2.3. WBC 19.9, hemoglobin 10.3, hematocrit 29.9. PROBLEMS: 1. Oliguric acute renal failure: Patient has been dialysis dependent and he did not respond to diuretic again this morning. He is being dialyzed today due to worsening hypoxemia. 2. Hypoxemia related to oliguric acute renal failure and volume overload: We are planning to remove 3 liters of fluid with dialysis this morning. 3. Hyponatremia: Sodium level essentially unchanged, but likely to improve with dialysis today. Patient should remain on fluid restriction of 1,500 mL per day. 4. Klebsiella bacteremia: Patient is currently afebrile and remains on Doxycycline and Ceftriaxone.
[2020-08-18] MEDS: DOXYCYCLINE HYCLATE 100 MG in D5W MINI-BAG PLUS 100 ML IV SCH ×2 (11:24→23:19)
[2020-08-18] MEDS: PANTOPRAZOLE 40MG TAB (PROTONIX) PO SCH (20:55)
[2020-08-18] MEDS: FIORICET TAB PO PRN (23:56)
[2020-08-19] VITALS (17 sets, daily range): BP systolic 137–172; BP diastolic 78–95; O2SAT 90–98
[2020-08-19] MEDS: IPRATROPIUM 0.5MG/ALBUTEROL 2.5MG INH SOL UD 3ML (DUONEB) NEB SCH ×5 (03:13→20:00)
[2020-08-19 06:39] LABS: HEMATOCRIT 31.9 % (42.0-52.0); HEMOGLOBIN 10.7 g/dl (13.5-17.5); MEAN CORPUSCULAR HEMOGLOBIN 30.4 pg (27.0-33.0); MEAN CORPUSCULAR HGB CONC 33.5 g/dl (32.0-36.5); MEAN CORPUSCULAR VOLUME 90.6 fl (80.0-96.0); PLATELET COUNT, AUTOMATED 301 10^3/uL (150-450); RED BLOOD COUNT 3.52 10^6/uL (4.30-6.10); WHITE BLOOD COUNT 18.3 10^3/uL (4.0-10.0)
[2020-08-19 06:41] LABS: ALBUMIN 2.4 GM/DL (3.2-5.2); BILIRUBIN,TOTAL 0.4 MG/DL (0.2-1.0); CALCIUM LEVEL 8.9 MG/DL (8.8-10.2); CREATININE FOR GFR 4.44 MG/DL (0.70-1.30); GLOMERULAR FILTRATION RATE 14.5 (>49); MAGNESIUM LEVEL 1.9 MG/DL (1.8-2.4); POTASSIUM SERUM 3.6 MEQ/L (3.5-5.1); TOTAL PROTEIN 6.4 GM/DL (6.4-8.2)
[2020-08-19] MEDS: TIOTROPIUM INHALER/CAPSULE (SPIRIVA) INH SCH (08:00)
--- NOTE | 2020-08-19 08:00 | REP ---
INDICATION: sob COMPARISON: 08/18/2020 TECHNIQUE: Portable AP view of the chest FINDINGS: Mediastinum and cardiac silhouette are stable. Right IJ line with tip in the SVC again noted. Cardiac silhouette is within normal limits for portable technique. Lower lobe opacities suggesting elements of atelectasis and small layering effusions similar to prior examination. No new acute process identified. IMPRESSION: 1. Lower lobe opacities and possible small layering effusions similar to prior examination. 2. No new acute process identified. <Electronically signed by Javier Magana > 08/19/20 [id number]
[2020-08-19] MEDS: FORMOTEROL FUMARATE 20 MCG/2 ML INHALATION SOLUTION (PERFOROMIST) NEB SCH ×2 (08:18→20:00)
--- NOTE | 2020-08-19 10:03 | IPNPDOC ---
Date Seen The patient was seen on 08/19/20. Progress Note SUBJECTIVE: Patient remains hypoxemic, requiring Vapotherm currently FiO2 50%, despite 100 mg of IV Lasix yesterday, Patient did not respond and required Dialysis. This morning patient appears to be much more comfortable . He c/o cough white phlegm. No fever or chills. No dysuria, urgency, frequency OBJECTIVE: Vital signs: see below General: Anicteric, no jaundice. moist mucous membranes.no use resp acc mm Neck: + JVD, thyromegaly, no cervical lymphadenopathy. right HD catheter Lungs: Bibasilar crackles diminished Heart: S1 and S2 sinus rhythm. Abdomen: Soft, nontender, nondistended, positive bowel sounds. No CVA tenderness. Extremities: No cyanosis or clubbing. Decreased 1+ pitting edema labs/micro: reviewed CT chest: Moderate advanced emphysema in bilateral upper lobes, small bilateral pleural effusions right greater than left, atelectasis with infiltrate suspected in the right lower lobe, atelectasis in the left lower lobe, 1.3 cm low density left lobe of the liver consistent with cyst. ASSESSMENT: This 60-year-old with emphysema, alcohol abuse, chronic alcohol dependence presented with gross hematuria and found to have acute renal failure with gross hematuria with recent NSAID use. IMPRESSIONS: Acute oliguric renal failure with recent NSAID use. -now requiring HD s/p dialysis cath placed 08/15/20 -Remains fluid overloaded currently in Vapotherm, FiO2 50%, -status post dialysis on 08/18/2020 , did not respond to 100 mg of IV Lasix -rt ij Dialysis catheter placed 08/15/[address] Lawler. HD managed by nephrology right lower lobe pneumonia. -s/p Fever 102.5 08/14/20 -mrsa neg -s/p zosyn x3days -on iv ceftriaxone day 3,added doxycycline day 2 COPD with bilateral emphysematous changes on CT chest. -When necessary nebulizer treatments Chronic pancreatitis. -Tolerating his diet Coronary artery disease -Resumed on home meds . Hypertension -Uncontrolled due to respiratory distress -On Norvasc, added hydralazine with holding parameters for systolic pressure less than 140 Knee pain secondary to osteoarthritis. -Chronic Chronic hyponatremia. -On hemodialysis NSAID abuse. -advised against nsaid use Hypomagnesemia, resolved Metabolic acidosis, resolved -On hemodialysis Klebsiella UTI present on admission -s/p 3 days zosyn, day3 ceftriaxone -With transient bacteremia Transient Klebsiella Bacteremia from UTI -s/p 3 days zosyn, day3 ceftriaxone Acute hypoxic respiratory failure -due to RLL PNA, fluid overload from renal failure on HD -Currently in Vapotherm. -Wean down if possible - keep saturation 90-92% Alcohol abuse - multivitamin, thiamine and folate and CIWA protocol with as needed Ativan. Anemia of chronic disease -Secondary to renal failure -No acute GI bleed -No acute indication for RBC transfusion VS, I&O, 24H, Fishbone Vital Signs/I&O Vital Signs Date Time Temp Pulse Resp B/P (MAP) Pulse Ox O2 Delivery O2 Flow Rate FiO2 08/19/20 08:20 92 HVNI-Vapotherm 15.0 50 08/19/20 08:00 98.2 77 19 158/95 (116) I&O- Last 24 Hours up to 6 AM 08/19/20 06:00 Intake Total 2380 ml Output Total 3225 ml Balance -845 ml Laboratory Data 24H LABS Laboratory Tests 2 08/19/20 06:04: Nucleated Red Blood Cells % (auto) 0.0, Anion Gap 8, Glomerular Filtration Rate 14.5L, Calcium Level 8.9, Magnesium Level 1.9, Total Bilirubin 0.4, Aspartate Amino Transf (AST/SGOT) 16, Alanine Aminotransferase (ALT/SGPT) 18, Alkaline Phosphatase 91, Total Protein 6.4, Albumin 2.4L, Albumin/Globulin Ratio 0.6 CBC/BMP Laboratory Tests 08/19/20 06:04 Microbiology Microbiology 08/15/20 Urine Culture - Final, Complete Klebsiella Oxytoca 08/14/20 Blood Culture - Final, Complete Klebsiella Oxytoca 08/14/20 Blood Culture - Final, Complete Klebsiella Oxytoca 08/14/20 Urine Culture - Final, Complete Klebsiella Oxytoca CARMINA LA MD Aug 19, 2020 10:02
[2020-08-19] MEDS: FOLIC ACID 1 MG TAB PO SCH (10:08)
[2020-08-19] MEDS: cefTRIAXone SOD 2 GM in D5W MINI-BAG PLUS 50 ML IV SCH (10:08)
[2020-08-19] MEDS: DOCUSATE SODIUM 100MG CAPSULE PO SCH ×2 (10:09→21:00)
[2020-08-19] MEDS: SUCRALFATE 1 GM TAB PO SCH ×2 (10:09→21:02)
[2020-08-19] MEDS: MAGNESIUM OXIDE 400MG TAB (MAG-OX) PO SCH (10:09)
[2020-08-19] MEDS: MULTIVITAMINS/MINERALS THERAP 1 TAB PO SCH (10:09)
[2020-08-19] MEDS: DOXYCYCLINE HYCLATE 100 MG in D5W MINI-BAG PLUS 100 ML IV SCH ×2 (10:55→21:07)
[2020-08-19] MEDS: **hydrALAZINE** 10 MG TAB PO SCH ×3 (10:55→20:16)
--- NOTE | 2020-08-19 11:54 | IPN ---
NEPHROLOGY PROGRESS NOTE DATE: 08/19/2020 SUBJECTIVE: Mr. Geller is seen this morning on his bedside. He was dialyzed yesterday emergently due to worsening hypoxemia and requiring high flow oxygen. He is still on the same and his hypoxemia does not seem to be any different despite 3 liters of fluid removal with dialysis yesterday. He remains oliguric with renal failure and no recovery so far. PHYSICAL EXAMINATION: Temperature 98.2 degrees Fahrenheit, heart rate 77 per minute and respiratory rate 19 per minute. Blood pressure 158/95 mmHg and oxygen saturation 92% on 15 liters of oxygen and 50% oxygen. Intake and output records show a negative fluid balance of 1540 mL yesterday with 3000 fluid removed with dialysis. Head: Atraumatic. Neck: Supple and JVD difficult to be assessed. Dialysis catheter is present in the right internal jugular vein. Heart: Sounds are regular. Lungs: Diminished breath sounds and bilateral rales. Abdomen: Soft and bowel sounds are normal. Extremities: Without any cyanosis or clubbing. Lower extremity edema is 1+ LABORATORY DATA: Today's labs show WBC count 18.3, hemoglobin 10.7, hematocrit 31.9. Sodium 130, potassium 3.6, CO2 25, BUN 31, creatinine 4.44, glucose 121, calcium 8.9. Total protein 6.4 and albumin 2.4. PROBLEMS/PLAN: 1. Oliguric acute renal failure: Patient was dialyzed yesterday and we will plan dialysis again this afternoon. 2. Hypoxemia: Three liters of fluid was removed yesterday which did not make any difference in his hypoxemia. I am concerned about other possible causes. At this point we will plan to dialyze him again today and we will remove another 2.5-3 liters as tolerated. 3. Hyponatremia: Sodium level did improve slightly and we will remove 3 liters of fluid again today which is likely to help with hyponatremia also. 4. Anemia: His anemia is stable at this point and no specific intervention is needed. MTDD
[2020-08-19 15:42] LABS: C REACTIVE PROTEIN QUANTITATIV 5.94 MG/DL (0.00-0.30)
[2020-08-19] MEDS: FIORICET TAB PO PRN (17:29)
[2020-08-19] MEDS: PANTOPRAZOLE 40MG TAB (PROTONIX) PO SCH (21:03)
[2020-08-20] VITALS: BP 165/95
[2020-08-20 04:00] VITALS: BP 160/98
[2020-08-20] MEDS: IPRATROPIUM 0.5MG/ALBUTEROL 2.5MG INH SOL UD 3ML (DUONEB) NEB SCH ×6 (04:00→20:00)
[2020-08-20 05:53] LABS: BASO # 0.1 10^3/uL (0.0-0.2); BASO % 0.5 % (0.0-1.0); EOS # 0.2 10^3/uL (0.0-0.5); EOS % 1.2 % (0.0-3.0); HEMATOCRIT 30.3 % (42.0-52.0); HEMOGLOBIN 10.2 g/dl (13.5-17.5); LYMPH # 1.6 10^3/uL (1.5-5.0); LYMPH % 10.4 % (24.0-44.0); MEAN CORPUSCULAR HEMOGLOBIN 30.6 pg (27.0-33.0); MEAN CORPUSCULAR HGB CONC 33.7 g/dl (32.0-36.5); MONO % 13.5 % (2.0-8.0); NEUTROPHILS # 10.9 10^3/uL (1.5-8.5); NEUTROPHILS % 72.2 % (36.0-66.0); PLATELET COUNT, AUTOMATED 332 10^3/uL (150-450); RED BLOOD COUNT 3.33 10^6/uL (4.30-6.10)
[2020-08-20 05:56] LABS: WHITE BLOOD COUNT 15.1 10^3/uL (4.0-10.0)
[2020-08-20 06:14] LABS: CALCIUM LEVEL 8.5 MG/DL (8.8-10.2); CREATININE FOR GFR 3.15 MG/DL (0.70-1.30); GLOMERULAR FILTRATION RATE 21.5 (>49); POTASSIUM SERUM 3.9 MEQ/L (3.5-5.1)
[2020-08-20 08:00] VITALS: BP 162/94
[2020-08-20] MEDS: TIOTROPIUM INHALER/CAPSULE (SPIRIVA) INH SCH (08:00)
[2020-08-20] MEDS: FORMOTEROL FUMARATE 20 MCG/2 ML INHALATION SOLUTION (PERFOROMIST) NEB SCH ×2 (08:00→20:00)
--- NOTE | 2020-08-20 08:07 | ECHO ---
DATE OF PROCEDURE: 08/18/2020 Age: 60 Gender: Male Height: 73 inches Weight: 178 pounds Body Surface Area: 2.05 m2 PATIENT LOCATION: Inpatient PCU Room 3219. REFERRING PHYSICIAN: Dr. Lam Chen. INDICATION: Edema. MEASUREMENTS: 2D Measurements: RV 4.4 cm LV 4.5 cm Septum 1.3 cm Posterior wall 1.2 cm Aortic Root 3.5 cm LA 4.2 cm LVEF 65% Doppler Measurements: AV 1.22 m/s LVOT 1.04 m/s MV-E 62, A 112, EA ratio 0.6 Early mitral deceleration time 235 msec E prime medial 6.1, A prime medial 13.7, E prime lateral 11 Average E/E prime ratio 7.3/PCWP 10.9 mmHg PV 1.1 m/s Pulmonary artery acceleration time 98 msec RVSP 37 mmHg IVC - 1.9 cm COMMENTS: Normal sinus rhythm without intraventricular conduction disturbance. Technically challenging study in light of the patient's body habitus, but diagnostically useful information was still obtained. M-mode and 2-dimensional echocardiography was performed with pulse, continuous wave, color flow, and tissue Doppler studies. Mild concentric left ventricular hypertrophy with normal wall motion. Mildly dilated left atrium with grade 1 LV diastolic dysfunction but currently normal estimated mean left atrial pressure. Mildly dilated right heart chambers with normal wall motion and Doppler evidence of at least mild pulmonary hypertension. Normal IVC size and collapse against an elevated central venous pressure at this time. Normal aortic dimensions. Normal appearing and functioning mitral, aortic, and tricuspid valves. No apparent intracardiac mass or pericardial effusion. MTDD
[2020-08-20] MEDS: SPIRONOLACTONE 25 MG TAB PO SCH ×2 (09:33→16:16)
[2020-08-20] MEDS: SUCRALFATE 1 GM TAB PO SCH ×2 (09:33→20:00)
[2020-08-20] MEDS: MULTIVITAMINS/MINERALS THERAP 1 TAB PO SCH (09:33)
[2020-08-20] MEDS: DOCUSATE SODIUM 100MG CAPSULE PO SCH ×2 (09:33→20:10)
[2020-08-20] MEDS: FOLIC ACID 1 MG TAB PO SCH (09:33)
[2020-08-20] MEDS: FUROSEMIDE 40 MG TAB PO SCH ×2 (09:34→16:16)
[2020-08-20] MEDS: **hydrALAZINE** 10 MG TAB PO SCH ×3 (09:34→20:00)
[2020-08-20] MEDS: MAGNESIUM OXIDE 400MG TAB (MAG-OX) PO SCH (09:34)
[2020-08-20] MEDS: cefTRIAXone SOD 2 GM in D5W MINI-BAG PLUS 50 ML IV SCH (09:35)
[2020-08-20 12:00] VITALS: BP 168/92
[2020-08-20] MEDS: DOXYCYCLINE HYCLATE 100 MG in D5W MINI-BAG PLUS 100 ML IV SCH ×2 (12:08→23:00)
--- NOTE | 2020-08-20 12:42 | IPN ---
NEPHROLOGY PROGRESS NOTE DATE: 08/20/2020 SUBJECTIVE: Mr. Geller is seen this morning at his bedside. He is feeling much better and dyspnea has improved. He was dialyzed yesterday again and 3 liters of fluid were removed. He has also been placed on diuretics with Furosemide 40 mg twice daily and Spironolactone 25 mg twice daily. The patient reports that he has been urinating much better. Yesterday 3 liters of fluid were removed with dialysis while another 3 liters were removed on Wednesday morning when he was dialyzed in emergency. OBJECTIVE: PHYSICAL EXAMINATION: VITAL SIGNS: Temperature is 99.2 degrees Fahrenheit, heart rate 84 per minute, respiratory rate 18 per minute, blood pressure 162/94 mm of mercury and oxygen saturation is 94% on 4 liters oxygen. NECK: Supple and JVD is difficult to be assessed. He has a dialysis catheter in the right internal jugular vein. HEART: Regular. LUNGS: Diminished breath sounds at dependent parts. ABDOMEN: Soft with mild to moderate amount of ascites and normal bowel sounds. EXTREMITIES: Without cyanosis or clubbing. Lower extremity edema has improved significantly. NEUROLOGICAL: He is without any focal deficits. LABORATORY STUDIES: Today's labs show a white blood cell count of 15.1, hemoglobin 10.2 and hematocrit 30.3, platelet count 332. Sodium 135, potassium 3.9, CO2 23, BUN 22 and creatinine 3.15, glucose 96 and calcium 8.5. PROBLEMS: 1. Acute renal failure - The patient had oliguric acute renal failure with his sats to be hepatorenal. At this point he seems to have some urine output and it is pointing to diuretics. He was dialyzed yesterday and we removed 3 liters of fluid. I do not feel that there is any emergent need for dialysis today and we will continue our efforts to diurese and see how he does. 2. Hyponatremia - sodium level has improved up to 135. Diuresis is likely to help further. 3. Hypoxemia - The patient is improving and his volume status has improved significantly over the last couple of days with 6 liters of fluid removal with dialysis. He probably has pleural effusions and lower lobe opacities. At this point he remains on antibiotics for possible pneumonia and we will continue to diurese him and see if we can help with his volume status. 4. Anemia at present anemia is stable and does not need any urgent intervention. 5. Cirrhosis of liver this is a chronic issue and seems to be stable at present without any hepatic encephalopathy. 6. Right lower lobe pneumonia - The patient remains on antibiotics and is currently afebrile.
[2020-08-20] MEDS ORDERED: SIMETHICONE 80MG CHEW TAB PO PRN (15:00)
[2020-08-20 16:00] VITALS: BP 189/91
[2020-08-20 18:00] VITALS: BP 171/94
--- NOTE | 2020-08-20 18:54 | IPNPDOC ---
Text Note Date of Service The patient was seen on 08/20/20. NOTE Subjective: Patient was seen and examined this morning at bedside. Yesterday patient was taken off the Vapotherm and was placed on nasal cannula oxygen this morning he was able to be titrated completely off of supplemental oxygen and was saturating at 95% on room air. Patient endorses a shortness of breath is improved. Denies any chest pain or abdominal pain since he has a good appetite but he doesn't like hospital food. He does complain of some abdominal bloating. Endorses he is urinating better. Objective: Constitutional: Awake and alert, in no apparent distress ENT: Sclera are clear. Mucosa is moist. Respiratory: Lungs crackles bilaterally. No respiratory distress. Saturating at 92% on room air. Cardiovascular: RRR S1 and S2 are normal Gastrointestinal: Abdomen is soft, non distended, non tender, BS present. No CVA tenderness. Musculoskeletal: 1+ lower extremity pitting edema Neurologic: No focal neurological deficit. Mental Status: A&O x3, normal affect Assessment/plan: 60-year-old with emphysema, alcohol abuse, chronic alcohol dependence presented with gross hematuria and found to have acute renal failure with gross hematuria with recent NSAID use. Also found to have a urinary tract infection and a right lower lobe pneumonia. # Acute oliguric renal failure with recent NSAID use. -Requiring HD s/p rt ij Dialysis catheter placed 08/15/[address] Lawler. -Fluid overload status improving with dialysis - HD managed by nephrology and is currently PRN. - Attempting to diurese with lasix and spironolactone. Better urine output. # right lower lobe pneumonia. -s/p Fever 102.5 08/14/20. Currently afebrile. -s/p zosyn x3days -on iv ceftriaxone and doxycycline. -Leukocytosis downtrending #Acute hypoxic respiratory failure due to RLL PNA, fluid overload from renal failure on HD. Off of Vapotherm. Now on room air. # Liver cirrhosis: Without hepatic encephalopathy. This is chronic. I recommended he follow-up with his PCP. #COPD with bilateral emphysematous changes on CT chest: DuoNeb as needed #Chronic pancreatitis: Tolerating his diet #Coronary artery disease: Resumed on home meds #Hypertension: Uncontrolled due to respiratory distress. On Norvasc, added hydralazine with holding parameters for systolic pressure less than 140 #Knee pain secondary to osteoarthritis: Chronic #Chronic hyponatremia: Improved. On hemodialysis #NSAID abuse: advised against nsaid use #Hypomagnesemia, resolved #Metabolic acidosis, resolved #Klebsiella UTI present on admission s/p 3 days zosyn, and ceftriaxone. With transient bacteremia #Transient Klebsiella Bacteremia from UTI s/p 3 days zosyn, and ceftriaxone #Alcohol abuse: multivitamin, thiamine and folate and. CIWA protocol with as needed Ativan. #Anemia of chronic disease: Secondary to renal failure. No acute GI bleed. No acute indication for RBC transfusion A [place] Hospitalist VS,[place], I+O VS, [place] I+O Laboratory Tests 08/20/20 05:28 Vital Signs Date Time Temp Pulse Resp B/P (MAP) Pulse Ox O2 Delivery O2 Flow Rate FiO2 08/20/20 16:17 189/91 08/20/20 16:00 99.0 84 18 94 Room Air 08/20/20 08:00 8.0 08/19/20 17:29 90 I&O- Last 24 Hours up to 6 AM 08/20/20 06:00 Intake Total 2070 ml Output Total 3800 ml Balance -1730 ml SHARON DE SOUZA MD Aug 20, 2020 18:54
[2020-08-20] MEDS: PANTOPRAZOLE 40MG TAB (PROTONIX) PO SCH (20:00)
[2020-08-20] MEDS: FIORICET TAB PO PRN (20:01)
[2020-08-21] VITALS (8 sets, daily range): BP systolic 130–170; BP diastolic 80–99
[2020-08-21] MEDS: IPRATROPIUM 0.5MG/ALBUTEROL 2.5MG INH SOL UD 3ML (DUONEB) NEB SCH ×5 (05:22→20:07)
[2020-08-21 06:08] LABS: BASO # 0.1 10^3/uL (0.0-0.2); BASO % 0.8 % (0.0-1.0); EOS # 0.3 10^3/uL (0.0-0.5); EOS % 2.7 % (0.0-3.0); HEMATOCRIT 32.5 % (42.0-52.0); HEMOGLOBIN 10.8 g/dl (13.5-17.5); LYMPH # 1.5 10^3/uL (1.5-5.0); LYMPH % 12.7 % (24.0-44.0); MEAN CORPUSCULAR HGB CONC 33.2 g/dl (32.0-36.5); MEAN CORPUSCULAR VOLUME 90.3 fl (80.0-96.0); MONO % 16.5 % (2.0-8.0); NEUTROPHILS # 7.7 10^3/uL (1.5-8.5); NEUTROPHILS % 63.8 % (36.0-66.0); PLATELET COUNT, AUTOMATED 351 10^3/uL (150-450)
[2020-08-21 06:14] LABS: WHITE BLOOD COUNT 12.1 10^3/uL (4.0-10.0)
[2020-08-21 06:32] LABS: ALBUMIN 2.1 GM/DL (3.2-5.2); BILIRUBIN,TOTAL 0.2 MG/DL (0.2-1.0); CALCIUM LEVEL 8.1 MG/DL (8.8-10.2); CREATININE FOR GFR 3.65 MG/DL (0.70-1.30); GLOMERULAR FILTRATION RATE 18.2 (>49); MAGNESIUM LEVEL 1.3 MG/DL (1.8-2.4); POTASSIUM SERUM 3.7 MEQ/L (3.5-5.1); TOTAL PROTEIN 5.3 GM/DL (6.4-8.2)
[2020-08-21] MEDS: FORMOTEROL FUMARATE 20 MCG/2 ML INHALATION SOLUTION (PERFOROMIST) NEB SCH ×2 (08:00→20:07)
[2020-08-21] MEDS: TIOTROPIUM INHALER/CAPSULE (SPIRIVA) INH SCH (08:00)
[2020-08-21] MEDS: DOCUSATE SODIUM 100MG CAPSULE PO SCH ×2 (08:08→21:00)
[2020-08-21] MEDS: MULTIVITAMINS/MINERALS THERAP 1 TAB PO SCH (08:09)
[2020-08-21] MEDS: SUCRALFATE 1 GM TAB PO SCH ×2 (08:09→21:02)
[2020-08-21] MEDS: FOLIC ACID 1 MG TAB PO SCH (08:09)
[2020-08-21] MEDS: MAGNESIUM OXIDE 400MG TAB (MAG-OX) PO SCH (08:09)
[2020-08-21] MEDS: **hydrALAZINE** 10 MG TAB PO SCH ×3 (08:10→21:02)
[2020-08-21] MEDS: MAG SULF 1GM/100ML (MAG RUN) 1 GM in IV 1 EA IV SCH ×3 (08:11→12:32)
[2020-08-21] MEDS: cefTRIAXone SOD 2 GM in D5W MINI-BAG PLUS 50 ML IV SCH (09:38)
[2020-08-21] MEDS: DOXYCYCLINE HYCLATE 100 MG in D5W MINI-BAG PLUS 100 ML IV SCH (11:28)
--- NOTE | 2020-08-21 13:47 | IPN ---
PROGRESS NOTE DATE: 08/21/2020 SUBJECTIVE: Mr. Geller is seen this morning on his bedside. He is feeling much better and not requiring oxygen anymore. He diuresed very well yesterday with Spironolactone and Lasix, and had a urine output of 2,700 mL. Important to know that he has been oliguric before this and we removed 3 liters of fluid with dialysis on August 18 and another 3 liters on August 19. PHYSICAL EXAMINATION: GENERAL: Patient is awake and alert, and without any acute distress. VITALS: Temperature 98 degrees Fahrenheit, heart rate 58 per minute, respiratory rate 18 per minute, blood pressure 150/86 mmHg and oxygen saturation 97% on room air. HEENT: Head is atraumatic. Neck supple and without JVD or thyroid enlargement. There is a dialysis catheter in right internal jugular vein. LUNGS: Clear to auscultation. HEART: Sounds are regular. ABDOMEN: Soft and nontender. Bowel sounds are normal. EXTREMITIES: Without any cyanosis or clubbing. NEUROLOGIC: He is awake, alert and oriented x3. LABORATORY STUDIES: Today's labs show WBC 12.1, hemoglobin 10.8 and hematocrit 32.5. Sodium 132, potassium 3.7, BUN 29 and creatinine 3.65. Calcium 8.1 and magnesium 1.3. PROBLEMS: 1. Oliguric acute renal failure: Patient is not oliguric anymore and he made 2,700 cc of urine yesterday. At this point, I will hold off on dialysis and recheck his renal profile tomorrow. 2. Hyponatremia: Mild hyponatremia probably related to diuretic use. We are going to stop his Lasix and Spironolactone as his volume status has completely corrected. 3. Hypomagnesemia: Patient has already received intravenous magnesium supplement and his magnesium level should be repeated tomorrow. 4. Hypervolemia: His volume status has improved and edema has completely resolved. No need for dialysis today and diuretic is being stopped. We will reevaluate him tomorrow for further need for dialysis.
--- NOTE | 2020-08-21 15:14 | IPNPDOC ---
Text Note Date of Service The patient was seen on 08/21/20. NOTE Subjective: Patient was seen and examined this morning at bedside. Endorses feeling much better today. He still been able to stay off of the supplement oxygen saturating well on room air. He's been making good urine output. Denies any chest pain. Has some mild shortness of breath mostly on exertion but much better than before. Denies fevers or chills. Has a good appetite had some cereal this morning doesn't like the hospital food. Objective: Constitutional: Awake and alert, in no apparent distress ENT: Sclera are clear. Mucosa is moist. Respiratory: Lungs diminished breath sounds bilaterally. No respiratory distress. Saturating at 94% on room air. Cardiovascular: RRR S1 and S2 are normal Gastrointestinal: Abdomen is soft, non distended, non tender, BS present. No CVA tenderness. Musculoskeletal: 1+ lower extremity pitting edema Neurologic: No focal neurological deficit. Mental Status: A&O x3, normal affect Assessment/plan: 60-year-old with emphysema, alcohol abuse, chronic alcohol dependence presented with gross hematuria and found to have acute renal failure with gross hematuria with recent NSAID use. Also found to have a urinary tract infection and a right lower lobe pneumonia. # Acute renal failure with recent NSAID use. - Initially oliguric, now making urine. - Requiring HD s/p rt ij Dialysis catheter placed 08/15/[address] Lawler. - Fluid overload status improved with dialysis. Nephrology holding off on dialysis, monitoring renal function which is slowly improving. - HD managed by nephrology and is currently PRN. - Responded well to diurese with lasix and spironolactone. Better urine output. # right lower lobe pneumonia: Fever 102.5 08/14/20. afebrile since. s/p zosyn x3days followed by iv ceftriaxone and doxycycline. Completed treated. Leukocytosis downtrending #Acute hypoxic respiratory failure due to RLL PNA, fluid overload from renal failure improved with HD. Off of Vapotherm. Now on room air. #Liver cirrhosis: Without hepatic encephalopathy. This is chronic. I recommended he follow-up with his PCP. #COPD with bilateral emphysematous changes on CT chest: DuoNeb as needed #Chronic pancreatitis: Tolerating his diet #Coronary artery disease: Resumed on home meds #Hypertension: Uncontrolled due to respiratory distress. On Norvasc, added hydralazine with holding parameters for systolic pressure less than 140 #Knee pain secondary to osteoarthritis: Chronic #Chronic hyponatremia: Improved. On hemodialysis #NSAID abuse: advised against nsaid use #Hypomagnesemia, resolved #Metabolic acidosis, resolved #Klebsiella UTI present on admission s/p 3 days zosyn, and ceftriaxone. With transient bacteremia #Transient Klebsiella Bacteremia from UTI s/p 3 days zosyn, and ceftriaxone #Alcohol abuse: multivitamin, thiamine and folate and. CIWA protocol with as needed Ativan. #Anemia of chronic disease: Secondary to renal failure. No acute GI bleed. No acute indication for RBC transfusion [facility], [facility] Laboratory Tests 08/21/20 05:32 Vital Signs Date Time Temp Pulse Resp B/P (MAP) Pulse Ox O2 Delivery O2 Flow Rate FiO2 08/21/20 12:04 99.2 83 18 158/94 (115) 94 Room Air 08/20/20 20:01 8.0 90 I&O- Last 24 Hours up to 6 AM 08/21/20 06:00 Intake Total 2040 ml Output Total 3100 ml Balance -1060 ml SHARON DE SOUZA MD Aug 21, 2020 15:14
[2020-08-21] MEDS ORDERED: LevoFLOXacin 750 MG TABLET PO SCH (18:00)
[2020-08-21] MEDS: PANTOPRAZOLE 40MG TAB (PROTONIX) PO SCH (21:02)
[2020-08-22 06:00] VITALS: BP 154/97
[2020-08-22 07:08] LABS: BASO # 0.1 10^3/uL (0.0-0.2); BASO % 0.7 % (0.0-1.0); EOS # 0.3 10^3/uL (0.0-0.5); EOS % 2.4 % (0.0-3.0); LYMPH # 1.9 10^3/uL (1.5-5.0); LYMPH % 15.6 % (24.0-44.0); MEAN CORPUSCULAR HEMOGLOBIN 30.6 pg (27.0-33.0); MEAN CORPUSCULAR HGB CONC 34.4 g/dl (32.0-36.5); MEAN CORPUSCULAR VOLUME 88.9 fl (80.0-96.0); MONO # 1.9 10^3/uL (0.0-0.8); MONO % 15.1 % (2.0-8.0); NEUTROPHILS # 7.8 10^3/uL (1.5-8.5); NEUTROPHILS % 62.8 % (36.0-66.0); PLATELET COUNT, AUTOMATED 429 10^3/uL (150-450)
[2020-08-22 07:09] LABS: WHITE BLOOD COUNT 12.4 10^3/uL (4.0-10.0)
[2020-08-22] MEDS: FORMOTEROL FUMARATE 20 MCG/2 ML INHALATION SOLUTION (PERFOROMIST) NEB SCH ×2 (07:12→20:00)
[2020-08-22] MEDS: TIOTROPIUM INHALER/CAPSULE (SPIRIVA) INH SCH (07:12)
[2020-08-22 07:41] LABS: ALBUMIN 2.5 GM/DL (3.2-5.2); BILIRUBIN,TOTAL 0.3 MG/DL (0.2-1.0); CALCIUM LEVEL 8.3 MG/DL (8.8-10.2); CREATININE FOR GFR 3.75 MG/DL (0.70-1.30); GLOMERULAR FILTRATION RATE 17.6 (>49); POTASSIUM SERUM 3.9 MEQ/L (3.5-5.1); TOTAL PROTEIN 6.1 GM/DL (6.4-8.2)
[2020-08-22] MEDS: IPRATROPIUM 0.5MG/ALBUTEROL 2.5MG INH SOL UD 3ML (DUONEB) NEB SCH ×5 (08:00→20:00)
[2020-08-22] MEDS: **hydrALAZINE** 10 MG TAB PO SCH ×3 (09:03→20:16)
[2020-08-22] MEDS: MULTIVITAMINS/MINERALS THERAP 1 TAB PO SCH (09:03)
[2020-08-22] MEDS: FOLIC ACID 1 MG TAB PO SCH (09:03)
[2020-08-22] MEDS: SUCRALFATE 1 GM TAB PO SCH ×2 (09:03→20:15)
[2020-08-22] MEDS: DOCUSATE SODIUM 100MG CAPSULE PO SCH ×2 (09:03→20:16)
[2020-08-22] MEDS: MAGNESIUM OXIDE 400MG TAB (MAG-OX) PO SCH (09:03)
--- NOTE | 2020-08-22 09:37 | IPNPDOC ---
Text Note Date of Service The patient was seen on 08/22/20. NOTE Subjective: Patient was seen and examined this morning at bedside. Tells me feeling about the same as yesterday. He's been able to saturate well on room air. He still making good urine output. Was eating his breakfast this morning. Dialysis catheter will be coming out today. There is no acute overnight events reported today. Patient denies any fevers or chills. Denies chest pain. Objective: Constitutional: Awake and alert, in no apparent distress ENT: Sclera are clear. Mucosa is moist. Respiratory: Lungs diminished breath sounds bilaterally. No respiratory distress. Saturating >90% on room air. Cardiovascular: RRR S1 and S2 are normal Gastrointestinal: Abdomen is soft, non distended, non tender, BS present. No CVA tenderness. Musculoskeletal: 1+ lower extremity pitting edema Neurologic: No focal neurological deficit. Mental Status: A&O x3, normal affect Assessment/plan: 60-year-old with emphysema, alcohol abuse, chronic alcohol dependence presented with gross hematuria and found to have acute renal failure with gross hematuria with recent NSAID use. Also found to have a urinary tract infection and a right lower lobe pneumonia. # Acute renal failure with recent NSAID use. - Initially oliguric, now making urine. - Requiring HD s/p rt ij Dialysis catheter placed 08/15/[address] Lawler. Dialysis catheter removed 08/22/20 - Fluid overload status improved with dialysis. Nephrology holding off on dialysis, monitoring renal function which is slowly improving. - Responded well to diurese with lasix and spironolactone. Good urine output. - Discharge will be dependent on nephrology once they feel kidneys have stabilized and he's ready for discharge. # right lower lobe pneumonia: Fever 102.5 08/14/20. afebrile since. s/p zosyn x3days followed by iv ceftriaxone and doxycycline. Completed treated. Leukocytosis downtrending #Acute hypoxic respiratory failure due to RLL PNA, fluid overload from renal failure improved with HD. Off of Vapotherm. Now on room air. #Liver cirrhosis: Without hepatic encephalopathy. This is chronic. I recommended he follow-up with his PCP. #COPD with bilateral emphysematous changes on CT chest: DuoNeb as needed #Chronic pancreatitis: Tolerating his diet #Coronary artery disease: Resumed on home meds #Hypertension: Uncontrolled due to respiratory distress. On Norvasc, added hydralazine with holding parameters for systolic pressure less than 140 #Knee pain secondary to osteoarthritis: Chronic #Chronic hyponatremia: Improved. On hemodialysis #NSAID abuse: advised against nsaid use #Hypomagnesemia, resolved #Metabolic acidosis, resolved #Klebsiella UTI present on admission s/p 3 days zosyn, and ceftriaxone. With transient bacteremia #Transient Klebsiella Bacteremia from UTI s/p 3 days zosyn, and ceftriaxone #Alcohol abuse: multivitamin, thiamine and folate and. CIWA protocol with as needed Ativan. #Anemia of chronic disease: Secondary to renal failure. No acute GI bleed. No acute indication for RBC transfusion [facility] Laboratory Tests 08/22/20 06:43 Vital Signs Date Time Temp Pulse Resp B/P (MAP) Pulse Ox O2 Delivery O2 Flow Rate FiO2 08/22/20 09:03 146/91 08/22/20 06:00 98.1 93 17 94 Room Air 08/20/20 20:01 8.0 90 I&O- Last 24 Hours up to 6 AM 08/22/20 06:00 Intake Total 2130 ml Output Total 1120 ml Balance 1010 ml SHARON DE SOUZA MD Aug 22, 2020 09:34
[2020-08-22] MEDS ORDERED: LevoFLOXacin 750 MG TABLET PO ONE (09:55)
--- NOTE | 2020-08-22 13:10 | IPN ---
PROGRESS NOTE DATE: 08/22/2020 SUBJECTIVE: Mr. Geller is seen this morning on his bedside. He is sitting at the edge of the bed eating breakfast. He is feeling well and denies any complaints. He is making good urine and eating well. OBJECTIVE: VITALS: Temperature 98 degrees Fahrenheit, heart rate 92 per minute, respiratory rate 20 per minute, blood pressure 154/97 mmHg and oxygen saturation 94% on room air. INTAKE AND OUTPUT: Records from yesterday show a total intake of 2,130 and output 1,720 mL. HEENT: Head is atraumatic. Neck is supple and without JVD. A temporary dialysis catheter is present in the right internal jugular vein and the dressing has come off loose. HEART: Heart sounds are regular. LUNGS: Lung sounds clear to auscultation. ABDOMEN: Soft and nontender and bowel sounds are normal. EXTREMITIES: Without any cyanosis or clubbing. NEUROLOGIC: He is awake, alert and oriented x3. LABORATORY STUDIES: Today's labs show WBC count 12.4, hemoglobin 11.0 and hematocrit 32.0. Sodium 131, potassium 3.9, CO2 25, BUN 35 and creatinine 3.75 while yesterday his creatinine was 3.65. Total protein is 6.1 and albumin 2.5. Magnesium level has improved to 2.0 and calcium is 8.3. PROBLEMS: 1. Acute renal failure. His acute kidney injury is felt to be related to excessive use of nonsteroidals while he was dehydrated. He was initially oliguric and required dialysis for fluid removal. Now his volume status has improved and in fact we may have removed excessive amount of fluid. He is nonoliguric now and I have advised the patient to increase his oral intake. There is no emergent need for dialysis and I will remove his dialysis catheter as it has been functioning poorly and is a source of infection. I anticipate no further need for dialysis at this point. 2. Hyponatremia. Mild hyponatremia most likely related to chronic liver disease and acute kidney injury. No significant change and we will continue to monitor closely. Unfortunately we cannot restrict his fluid intake at this point due to recovering kidney function and good urine output. The patient should be placed on regular sodium diet. I will also give him some oral sodium chloride tablets in order to help with his hyponatremia. 3. Dialysis catheter. The patient has a temporary dialysis catheter in right internal jugular vein and I had written for nursing staff to remove his catheter. However, I have just been informed that it has to be done by Interventional Radiology. I am requesting Interventional Radiology consult for that. 4. Anemia. At present his anemia is stable and he does not need any urgent intervention.
[2020-08-22 14:00] VITALS: BP 142/92
[2020-08-22] MEDS: SODIUM CHLORIDE 1 GM TAB PO SCH ×2 (17:00→20:16)
[2020-08-22] MEDS: PANTOPRAZOLE 40MG TAB (PROTONIX) PO SCH (20:16)
[2020-08-22 22:00] VITALS: BP 143/91
[2020-08-22] MEDS: FIORICET TAB PO PRN (22:02)
[2020-08-23 06:00] VITALS: BP 164/87
[2020-08-23 07:41] LABS: BASO # 0.1 10^3/uL (0.0-0.2); BASO % 0.8 % (0.0-1.0); EOS # 0.3 10^3/uL (0.0-0.5); EOS % 3.1 % (0.0-3.0); HEMATOCRIT 31.2 % (42.0-52.0); HEMOGLOBIN 10.6 g/dl (13.5-17.5); LYMPH # 1.9 10^3/uL (1.5-5.0); LYMPH % 18.1 % (24.0-44.0); MEAN CORPUSCULAR HEMOGLOBIN 30.3 pg (27.0-33.0); MEAN CORPUSCULAR VOLUME 89.1 fl (80.0-96.0); MONO # 1.8 10^3/uL (0.0-0.8); MONO % 16.5 % (2.0-8.0); NEUTROPHILS # 6.3 10^3/uL (1.5-8.5); NEUTROPHILS % 59.4 % (36.0-66.0); PLATELET COUNT, AUTOMATED 468 10^3/uL (150-450)
[2020-08-23] MEDS: FORMOTEROL FUMARATE 20 MCG/2 ML INHALATION SOLUTION (PERFOROMIST) NEB SCH (07:53)
[2020-08-23] MEDS: IPRATROPIUM 0.5MG/ALBUTEROL 2.5MG INH SOL UD 3ML (DUONEB) NEB SCH ×2 (07:53)
[2020-08-23] MEDS: TIOTROPIUM INHALER/CAPSULE (SPIRIVA) INH SCH (07:54)
[2020-08-23] MEDS: SUCRALFATE 1 GM TAB PO SCH (07:57)
[2020-08-23] MEDS: DOCUSATE SODIUM 100MG CAPSULE PO SCH (07:57)
[2020-08-23] MEDS: SODIUM CHLORIDE 1 GM TAB PO SCH (07:57)
[2020-08-23 07:58] VITALS: BP 158/70
[2020-08-23] MEDS: FOLIC ACID 1 MG TAB PO SCH (07:58)
[2020-08-23] MEDS: MAGNESIUM OXIDE 400MG TAB (MAG-OX) PO SCH (07:58)
[2020-08-23] MEDS: MULTIVITAMINS/MINERALS THERAP 1 TAB PO SCH (07:58)
[2020-08-23] MEDS: **hydrALAZINE** 10 MG TAB PO SCH (07:58)
[2020-08-23 08:05] LABS: ALBUMIN 2.5 GM/DL (3.2-5.2); BILIRUBIN,TOTAL 0.4 MG/DL (0.2-1.0); CALCIUM LEVEL 8.2 MG/DL (8.8-10.2); CREATININE FOR GFR 3.8 MG/DL (0.70-1.30); GLOMERULAR FILTRATION RATE 17.3 (>49); MAGNESIUM LEVEL 1.7 MG/DL (1.8-2.4); POTASSIUM SERUM 3.7 MEQ/L (3.5-5.1); TOTAL PROTEIN 6.3 GM/DL (6.4-8.2)
[2020-08-23 08:19] LABS: WHITE BLOOD COUNT 10.6 10^3/uL (4.0-10.0)
[2020-08-23] MEDS ORDERED: AMLO1TAB25 PO (09:25)
[2020-08-23] MEDS ORDERED: HYDR10TAB PO (09:25)
[2020-08-23] MEDS ORDERED: MAGNESIUM OXIDE 400MG TAB (MAG-OX) PO ONE (09:35)
--- NOTE | 2020-08-23 09:37 | DS.PDOC ---
Discharge Summary General Date of Admission Aug 13, 2020 at 02:17 Date of Discharge 08/23/20 Discharge Summary PROCEDURES PERFORMED DURING STAY: [None]. ADMITTING/DISCHARGE DIAGNOSES: Acute renal failure from NSAID use Right lower lobe pneumonia Acute hypoxic respiratory failure due to RLL PNA Urinary tract infection COMPLICATIONS/CHIEF COMPLAINT: Acute Renal Failure HISTORY OF PRESENT ILLNESS: From admitting provider's H&P:60 year old male with a pmh of ETOH disorder, chronic pancreatitis, CAD s/p cardiac catheterization, GERD, HTN and COPD who presents to the ED with a complaint of hematuria and oliguria x2 days. Patient states that two days ago he noticed that he had not urinated a lot and that when he did, it was almost black in color. Patient states that he was feeling ill with his chronic pancreatitis and was urinating into a gallon jug and noticed that over two days he had barely collected enough to fill the bottom of the jug. The urine was dark red in color. Patient states that he is not having pain when he urinates. Patient admits to some associated chills, malaise, fatigue, his normal chronic abd pain. Patient also admits to some sob and chest discomfort, but states that he always has these symptoms. Patient denies ever having this issue before. Denies associated nausea, vo miting, back/flank pain. Patient found to be in acute oliguric renal failure in the ED, with CR over 5, with his baseline being normal a month ago. Patient was bladder scanned for approx. 40mL's and did not void for the duration of his ED evaluation and work up. HOSPITAL COURSE: 60-year-old with emphysema, alcohol abuse, chronic alcohol dependence presented with gross hematuria and found to have acute renal failure with gross hematuria with recent NSAID use. Also found to have a urinary tract i nfection and a right lower lobe pneumonia. Patient required dialysis for a number of days as initially he was oliguric, his renal function did improve and he responded well to diuresis with Lasix and spironolactone. Dialysis catheter was removed and patient's kidney function appeared to stabilize. Patient will be referred to follow-up with nephrology after discharge. Patient was found to have a right lower lobe pneumonia and was treated with Zosyn for 3 days and then switched to ceftriaxone and doxycycline to complete treatment. His leukocytosis continued to downtrend. Patient also had acute hypoxic respiratory failure due to his right lower lobe pneumonia requiring Vapotherm but this improved with the resolution of the pneumonia and removal of fluid with dialysis he was discharged saturating well on room air. Patient was advised never to use NSAIDs again. Patient was also found to have Klebsiella urinary tract infection with transient bacteremia which was also covered with the antibiotics above. DISCHARGE MEDICATIONS: Please see below. ALLERGIES: Please see below. PHYSICAL EXAMINATION ON DISCHARGE: VITAL SIGNS: Please see below. Constitutional: Awake and alert, in no apparent distress ENT: Sclera are clear. Mucosa is moist. Respiratory: Lungs diminished breath sounds bilaterally. No respiratory distress. Saturating >90% on room air. Cardiovascular: RRR S1 and S2 are normal Gastrointestinal: Abdomen is soft, non distended, non tender, BS present. No CVA tenderness. Musculoskeletal: 1+ lower extremity pitting edema Neurologic: No focal neurological deficit. Mental Status: A&O x3, normal affect LABORATORY DATA: Please see below. IMAGING: See chart PROGNOSIS: Fair ACTIVITY: [As tolerated]. DIET: Low-salt diet DISPOSITION: Home DISCHARGE INSTRUCTIONS: Please follow up with your primary care physician within 1 week from discharge. If you do not have one, please follow up with us to schedule an appointment. Please keep all of your follow up appointments. Please call central to book your appointments with hospital specialists. Please take all your medications as prescribed. Please call/come to Clinic or go to the Emergency Department if - Temp >101, intractable Nausea/Vomiting, Diarrhea, Mouth sores, Headaches, Altered mental status, Seizures, sudden onset of swelling, bleeding, shortness of breath or chest pain. Never use nonsteroidal anti-inflammatory agents such as ibuprofen again. Follow up with nephrology after discharge DISCHARGE CONDITION: [Stable]. TIME SPENT ON DISCHARGE: 40 minutes. Vital Signs/I&Os Vital Signs Date Time Temp Pulse Resp B/P (MAP) Pulse Ox O2 Delivery O2 Flow Rate FiO2 08/23/20 07:58 158/70 08/23/20 06:00 97.6 74 17 96 Room Air 08/20/20 20:01 8.0 90 I&O- Last 24 Hours up to 6 AM 08/23/20 06:00 Intake Total 2380 ml Output Total 2105 ml Balance 275 ml Laboratory Data Labs 24H Laboratory Tests 2 08/23/20 07:13: Immature Granulocyte % (Auto) 2.1, Neutrophils (%) (Auto) 59.4, Lymphocytes (%) (Auto) 18.1L, Monocytes (%) (Auto) 16.5H, Eosinophils (%) (Auto) 3.1H, Basophils (%) (Auto) 0.8, Neutrophils # (Auto) 6.3, Lymphocytes # (Auto) 1.9, Monocytes # (Auto) 1.8H, Eosinophils # (Auto) 0.3, Basophils # (Auto) 0.1, Nucleated Red Blood Cells % (auto) 0.0, Anion Gap 11, Glomerular Filtration Rate 17.3L, Calcium Level 8.2L, Magnesium Level 1.7L, Total Bilirubin 0.4, Aspartate Amino Transf (AST/SGOT) 20, Alanine Aminotransferase (ALT/SGPT) 19, Alkaline Phosphatase 93, Total Protein 6.3L, Albumin 2.5L, Albumin/Globulin Ratio 0.7 CBC/BMP Laboratory Tests 08/23/20 07:13 Microbiology Microbiology 08/19/20 Blood Culture - Preliminary, Resulted No Growth after 72 hours. All specime... 08/19/20 Blood Culture - Preliminary, Resulted No Growth after 72 hours. All specime... 08/15/20 Urine Culture - Final, Complete Klebsiella Oxytoca 08/14/20 Blood Culture - Final, Complete Klebsiella Oxytoca 08/14/20 Blood Culture - Final, Complete Klebsiella Oxytoca 08/14/20 Urine Culture - Final, Complete Klebsiella Oxytoca Discharge Medications Scheduled Amlodipine Besylate (Amlodipine Besylate) 10 Mg Tablet, 10 MG PO DAILY Folic Acid (Folic Acid) 1 Mg Tablet, 1 MG PO DAILY, (Reported) Hydralazine HCl (Hydralazine HCl) 10 Mg Tablet, 10 MG PO TID Labetalol HCl (Labetalol HCl) 200 Mg Tablet, 200 MG PO BID, (Reported) Pantoprazole Sodium (Pantoprazole Sodium) 40 Mg Tablet.dr, 40 MG PO QHS, (Reported) Sucralfate (Sucralfate) 1 Gm Tablet, 1 GM PO BID, (Reported) Verapamil HCl (Verapamil ER) 240 Mg Cap24h.pel, 240 MG PO DAILY, (Reported) Vitamin B Complex (Vitamin B Complex) 1 Each Tablet, 1 TAB PO DAILY, (Reported) Scheduled PRN Clotrimazole/Betamethasone Dip (Clotrimazole-Betamethasone Crm) 15 Gm Cream..g., 1 DOSE TOP BID PRN for ITCHING, (Reported) USES ON BACK Hydrocortisone (Hydrocortisone) 28 Gm Cream..g., 1 DOSE TOP BID PRN for ITCHING, (Reported) USES ON BACK Allergies Coded Allergies: No Known Allergies (Unverified , 08/12/20) SHARON DE SOUZA MD Aug 23, 2020 09:37
== END 2020-08-23 10:59 | disposition home or self-care (01) | DRG 469 ==
LOC: M ED 21:28 → M ED INP 08-13 02:17 → ENRESERV 08-13 02:43 → M ICU 08-13 04:03 → M PCU 08-13 20:00 → M MSPAV 08-16 15:33 → M PCU 08-18 04:05 → M MSPAV 08-21 17:04
PROVIDERS: ADMIT Family Medicine; ATTEND Family Medicine
PROC: 02HV33Z Insertion of Infusion Device into Superior Vena Cava, Percutaneous Approach (ICD-10-PCS; principal; 2020-08-15)
PROC: 5A1D70Z Performance of Urinary Filtration, Intermittent, Less than 6 Hours Per Day (ICD-10-PCS; 2020-08-16)
DX: N17.9 Acute kidney failure, unspecified (principal); J96.01 Acute respiratory failure with hypoxia; K86.2 Cyst of pancreas; J18.9 Pneumonia, unspecified organism; R78.81 Bacteremia; E87.2 Acidosis; K86.1 Other chronic pancreatitis; E87.1 Hypo-osmolality and hyponatremia; D62 Acute posthemorrhagic anemia; E87.5 Hyperkalemia; E83.42 Hypomagnesemia; F10.20 Alcohol dependence, uncomplicated; I25.10 Atherosclerotic heart disease of native coronary artery without angina pectoris; K21.9 Gastro-esophageal reflux disease without esophagitis; I10 Essential (primary) hypertension; J44.0 Chronic obstructive pulmonary disease with (acute) lower respiratory infection; R53.83 Other fatigue; R53.81 Other malaise; F17.200 Nicotine dependence, unspecified, uncomplicated; R31.0 Gross hematuria; Z20.822 Contact with and (suspected) exposure to COVID-19; Z79.899 Other long term (current) drug therapy; D50.9 Iron deficiency anemia, unspecified; Z79.1 Long term (current) use of non-steroidal anti-inflammatories (NSAID); T39.315A Adverse effect of propionic acid derivatives, initial encounter; N39.0 Urinary tract infection, site not specified; B96.1 Klebsiella pneumoniae [K. pneumoniae] as the cause of diseases classified elsewhere; N00.9 Acute nephritic syndrome with unspecified morphologic changes; K74.60 Unspecified cirrhosis of liver

== ENCOUNTER 2020-08-31 20:48 | Emergency (ER) | payer OTHER ==
[~2020-08-31] VITALS: Ht 185.4 cm; Wt 78.4 kg
[~2020-08-31 20:48] MED LIST changes: +AMLO1TAB25 PO; +CLOT1CRE71 TOP; +HYDR10TAB PO; +HYDR1CRE30 TOP; +IBUP-1114; +LABE200T32 PO; +LABE20TAB; +PANT40TA29; +PANT40TA29 PO; +SUCR1TAB56; +SUCR1TAB56 PO; +TERA2CAP3; +VITATAB73 PO
[2020-08-31] MEDS ORDERED: COMBIVENT RESPIMAT 100-20MCG INHALER 4GM INH STA (21:29)
--- NOTE | 2020-08-31 22:02 | REPVR ---
PROCEDURE INFORMATION: Exam: XR Chest Exam date and time: 08/31/2020 9:40 PM Age: 60 years old Clinical indication: Chest pain; Additional info: Dyspnea/cough TECHNIQUE: Imaging protocol: XR of the chest. Views: 1 view. COMPARISON: [facility] PORTABLE CHEST X-RAY 08/19/2020 7:18 AM FINDINGS: Lungs: Coarse bibasilar infiltrates. Pleural spaces: Bilateral pleural effusions. Heart/Mediastinum: Cardiomegaly. Clinical correlation to exclude a pericardial effusion suggested. Bones/joints: Unremarkable. IMPRESSION: 1. Coarse bibasilar infiltrates. 2. Bilateral pleural effusions. 3. Cardiomegaly. Clinical correlation to exclude a pericardial effusion suggested. Electronically signed by: Leo Deutsch On 08/31/2020 22:01:54 PM
[2020-08-31 22:08] LABS: VENOUS BASE EXCESS -5.9 (-2.0-2.0); VENOUS HCO3 18.3 MEQ/L (23.0-27.0); VENOUS O2 SATURATION 56.3 % (60.0-80.0); VENOUS PARTIAL PRESSURE CO2 31.2 mmHg (38.0-50.0); VENOUS PARTIAL PRESSURE O2 32.2 mmHg (30.0-50.0); VENOUS PH 7.387 UNITS (7.330-7.430); VENOUS TOTAL CO2 19.3 MEQ/L (24.0-28.0)
[2020-08-31 22:10] LABS: BASO # 0.1 10^3/uL (0.0-0.2); BASO % 1.3 % (0.0-1.0); EOS # 0.2 10^3/uL (0.0-0.5); EOS % 1.7 % (0.0-3.0); HEMATOCRIT 25.5 % (42.0-52.0); HEMOGLOBIN 8.8 g/dl (13.5-17.5); LYMPH % 18.9 % (24.0-44.0); MEAN CORPUSCULAR HGB CONC 34.5 g/dl (32.0-36.5); MEAN CORPUSCULAR VOLUME 89.8 fl (80.0-96.0); MONO # 1.2 10^3/uL (0.0-0.8); MONO % 11.9 % (2.0-8.0); NEUTROPHILS # 6.8 10^3/uL (1.5-8.5); NEUTROPHILS % 65.2 % (36.0-66.0); PLATELET COUNT, AUTOMATED 568 10^3/uL (150-450); RED BLOOD COUNT 2.84 10^6/uL (4.30-6.10); WHITE BLOOD COUNT 10.4 10^3/uL (4.0-10.0)
[2020-08-31 22:44] LABS: RSV AMPLIFICATION NEGATIVE (NEGATIVE)
[2020-08-31 22:46] LABS: ALBUMIN 2.5 GM/DL (3.2-5.2); BILIRUBIN,DIRECT 0.1 MG/DL (0.0-0.2); BILIRUBIN,TOTAL 0.3 MG/DL (0.2-1.0); CALCIUM LEVEL 8.2 MG/DL (8.8-10.2); CK-MB VALUE MASS 1.8 NG/ML (<3.6); CREATININE FOR GFR 2.42 MG/DL (0.70-1.30); GLOMERULAR FILTRATION RATE 29.2 (>49); MB/CK RELATIVE INDEX 1.42 (< OR =4); POTASSIUM SERUM 4.6 MEQ/L (3.5-5.1); THYROID STIMULATING HORMONE 3.77 uIU/ML (0.358-3.740); THYROXINE (T4) 9.7 UG/DL (4.5-12.0); TROPONIN I 7.24 NG/ML (< 0.10)
[2020-08-31 23:20] LABS: INR 1.18; PROTHROMBIN TIME 15.3 SECONDS (12.5-14.3)
[2020-08-31] MEDS ORDERED: CLOPIDOGREL 300 MG TAB (PLAVIX) PO ONE (23:20)
[2020-08-31] MEDS ORDERED: ASPIRIN 81 MG CHEW TABLET PO ONE (23:20)
[2020-08-31] MEDS ORDERED: HEPARIN SOD (PORCINE) 5000UNITS/ML 1ML VIAL/SYRINGE IV ONE (23:20)
[2020-08-31] MEDS ORDERED: HEPARIN DRIP 25,000 UNITS in IV 1 EA IV SCH (23:20)
[2020-08-31 23:21] LABS: PARTIAL THROMBOPLASTIN TIME 37.6 SECONDS (24.2-38.5)
[2020-08-31] MEDS ORDERED: FUROSEMIDE 100MG/10ML VIAL (J1940) IV ONE (23:45)
[2020-09-01 00:49] VITALS: BP 111/74
--- NOTE | 2020-09-01 06:21 | ECGEPIP ---
[facility] - ED Test Date: 2020-08-31 Pat Name: ALEIDA ANSARI Department: Room: - Gender: Male [employer] Sales Representative: DAVID : 1960 Requested By: Pepito Nolan Order Number: [id number] Reading MD: Isabel Davis Measurements Intervals [place] Rate: 86 P: 55 MT: 154 QRS: 13 QRSD: 96 T: 38 QT: 422 QTc: 504 Interpretive Statements Sinus rhythm with premature supraventricular complexes Low voltage QRS limb leads Nonspecific ST and T wave abnormality Delayed R wave progression Prolonged QTc cw 08/13/[address] T wave changes now prolonged QTc Electronically Signed on 09-01-2020 6:21:05 EDT by Isabel Davis
== END 2020-09-01 00:53 | disposition short-term general hospital (02) ==
LOC: M ED 20:48
DX: I24.9 Acute ischemic heart disease, unspecified (principal); R79.9 Abnormal finding of blood chemistry, unspecified; I10 Essential (primary) hypertension; J44.9 Chronic obstructive pulmonary disease, unspecified; Z87.19 Personal history of other diseases of the digestive system; Z79.899 Other long term (current) drug therapy; F17.210 Nicotine dependence, cigarettes, uncomplicated
CPT/HCPCS: 36415; 71045; 80048; 80076; 82550; 82553; 82803; 83605; 83880; 84436; 84443; 85025; 85610; 85730; 87040; 87631; 93005; 93041; 99285; J1644; J1940

== ENCOUNTER → 2020-09-19 | Outpatient (REF) | payer OTHER | LOC: M LAB REF 13:03 | PROVIDERS: ATTEND Physician Assistant Medical | DX: H92.12 Otorrhea, left ear (principal) ==

== ENCOUNTER → 2020-10-05 | Outpatient (CLI) | payer OTHER ==
--- NOTE | 2020-10-06 12:12 | REPVR ---
PROCEDURE INFORMATION: Exam: CT Temporal Bones Without Contrast. Exam date and time: 10/05/2020 9:34 AM Age: 60 years old Clinical indication: Otorrhea lt ear TECHNIQUE: Imaging protocol: Computed tomography images of the temporal bones without contrast. Radiation optimization: All CT scans at this facility use at least one of these dose optimization techniques: automated exposure control; mA and/or kV adjustment per patient size (includes targeted exams where dose is matched to clinical indication); or iterative reconstruction. COMPARISON: No relevant prior studies available. FINDINGS: Right inner ear: Normal. Right ossicles and middle ear: Normal. The middle ear ossicles are intact. Right external auditory canal: Normal. Right facial nerve canal: Normal. Right jugular foramen: No jugular dehiscence. Right carotid canal: No aberrant carotid canal. Right mastoid air cells: Normal. No mastoid effusions. Left inner ear: Normal. Left ossicles and middle ear: There is debris/fluid within the left middle ear. Left external auditory canal: Normal. Left facial nerve canal: Normal. Left jugular foramen: No jugular dehiscence. Left carotid canal: No aberrant carotid canal. Left mastoid air cells: There is moderate left mastoid disease with opacification of multiple left mastoid air cells and erosive changes of the mastoid septa. Soft tissues: Unremarkable. IMPRESSION: 1. There is moderate left mastoid disease with opacification of multiple left mastoid air cells and erosive changes of the mastoid septa. 2. There is debris/fluid within the left middle ear. Electronically signed by: Gage Bonilla On 10/06/2020 12:11:55 PM
== END ==
LOC: M RAD 09:28
PROVIDERS: ATTEND Physician Assistant Medical
DX: H92.12 Otorrhea, left ear (principal)

== ENCOUNTER 2022-02-15 13:32 | Inpatient (IN) | payer OTHER ==
[~2022-02-15] VITALS: Ht 185.4 cm; Wt 66.6 kg
[~2022-02-15 13:32] MED LIST changes: -LABE200T32 PO; +LABE200T5 PO; +VERA240T65; -VERA24TASA
[2022-02-15] MEDS ORDERED: NS 500 ML IV ONE (13:55)
[2022-02-15 14:27] LABS: BASO # 0.1 10^3/uL (0.0-0.2); BASO % 0.9 % (0.0-1.0); EOS # 0.2 10^3/uL (0.0-0.5); EOS % 3.3 % (0.0-3.0); HEMATOCRIT 37.2 % (42.0-52.0); HEMOGLOBIN 12.7 g/dl (13.5-17.5); LYMPH # 1.5 10^3/uL (1.5-5.0); LYMPH % 25.9 % (24.0-44.0); MEAN CORPUSCULAR HEMOGLOBIN 32.1 pg (27.0-33.0); MEAN CORPUSCULAR HGB CONC 34.1 g/dl (32.0-36.5); MEAN CORPUSCULAR VOLUME 93.9 fl (80.0-96.0); MONO % 16.6 % (2.0-8.0); NEUTROPHILS # 3.1 10^3/uL (1.5-8.5); NEUTROPHILS % 52.8 % (36.0-66.0); PLATELET COUNT, AUTOMATED 290 10^3/uL (150-450); RED BLOOD COUNT 3.96 10^6/uL (4.30-6.10); WHITE BLOOD COUNT 5.8 10^3/uL (4.0-10.0)
[2022-02-15] MEDS: HYDROMORPHONE HCL 0.5 MG/ 0.5 ML SYRINGE (J1170 PER 1) IV PRN ×2 (14:36→16:01)
[2022-02-15 14:38] LABS: INR 1.06
[2022-02-15 14:39] LABS: PARTIAL THROMBOPLASTIN TIME 30.4 SECONDS (24.8-34.2)
[2022-02-15 15:07] LABS: ALBUMIN 3.3 GM/DL (3.2-5.2); ALT/SGPT 17 U/L (12-78); BILIRUBIN,DIRECT 0.2 MG/DL (0.0-0.2); BILIRUBIN,TOTAL 0.4 MG/DL (0.2-1.0); BLOOD UREA NITROGEN 8 MG/DL (7-18); CALCIUM LEVEL 8.3 MG/DL (8.8-10.2); CARBON DIOXIDE LEVEL 23 MEQ/L (21-32); CHLORIDE LEVEL 102 MEQ/L (98-107); CREATININE FOR GFR 0.74 MG/DL (0.70-1.30); GLOMERULAR FILTRATION RATE > 60.0 (>49); GLUCOSE, FASTING 84 MG/DL (70-100); POTASSIUM SERUM 4.2 MEQ/L (3.5-5.1); SODIUM LEVEL 134 MEQ/L (136-145); TOTAL PROTEIN 6.8 GM/DL (6.4-8.2)
[2022-02-15 15:08] LABS: RSV AMPLIFICATION NEGATIVE (NEGATIVE)
[2022-02-15] MEDS ORDERED: MORPHINE 4 MG/ML 1ML VIAL/SYRINGE IV PRN (16:50)
[2022-02-15] MEDS ORDERED: hydrALAZINE 20MG/ML 1ML VIAL (J0360 PER 20MG) IV PRN (16:55)
[2022-02-15] MEDS ORDERED: LORazepam 2 MG TAB PO PRN (16:55)
[2022-02-15] MEDS ORDERED: ALBUTEROL SULFATE 2.5 MG/0.5 ML INH NEB SOLN NEB PRN (17:00)
[2022-02-15] MEDS ORDERED: DILT240C28 PO (17:58)
[2022-02-15] MEDS ORDERED: NICOTINE 14 MG/24 HR TRANSDERMAL TD ONE (18:00)
[2022-02-15] MEDS ORDERED: POTA10CA32 PO (18:03)
[2022-02-15] MEDS ORDERED: CETI-24 PO (18:03)
[2022-02-15] MEDS ORDERED: FINA5TAB2 PO (18:03)
[2022-02-15] MEDS ORDERED: FURO40TA2 PO (18:03)
[2022-02-15] MEDS ORDERED: ARNU1INH3 INH (18:03)
[2022-02-15] MEDS ORDERED: TERA2CAP3 PO (18:03)
[2022-02-15] MEDS ORDERED: NITR0.4S14 SL (18:03)
[2022-02-15] MEDS ORDERED: VERI2.5T PO (18:03)
[2022-02-15] MEDS ORDERED: MED REC COMMENT (18:08)
[2022-02-15] MEDS ORDERED: HOME MED LIST COMPLETE! XX SCH (18:10)
[2022-02-15 18:25] VITALS: BP 171/104
[2022-02-15] MEDS: CYCLOBENZAPRINE 5MG TABLET PO PRN (18:54)
[2022-02-15] MEDS: amLODIPine 5 MG TAB PO SCH (18:58)
[2022-02-15 19:00] VITALS: BP 165/103
[2022-02-15] MEDS ORDERED: HYDROMORPHONE HCL 0.5 MG/ 0.5 ML SYRINGE (J1170 PER 1) IV ONE (19:00)
[2022-02-15] MEDS ORDERED: METHOCARBAMOL 1,000 MG/10 ML VIAL (J2800) IV ONE (19:30)
[2022-02-15 19:49] VITALS: BP 160/92
[2022-02-15] MEDS: THIAMINE 100 MG TAB PO SCH (20:43)
[2022-02-15 21:41] VITALS: BP 168/108
[2022-02-15 22:00] VITALS: BP 168/102
[2022-02-15] MEDS: MORPHINE 10 MG/ML 1ML VIAL IV PRN (23:06)
[2022-02-16] VITALS (11 sets, daily range): BP systolic 108–162; BP diastolic 72–111
[2022-02-16] MEDS: CYCLOBENZAPRINE 5MG TABLET PO PRN ×2 (03:15→11:16)
[2022-02-16] MEDS: MORPHINE 10 MG/ML 1ML VIAL IV PRN ×2 (03:59→11:16)
[2022-02-16 05:41] LABS: HEMATOCRIT 40.6 % (42.0-52.0); HEMOGLOBIN 13.7 g/dl (13.5-17.5); MEAN CORPUSCULAR HEMOGLOBIN 33.1 pg (27.0-33.0); MEAN CORPUSCULAR HGB CONC 33.7 g/dl (32.0-36.5); MEAN CORPUSCULAR VOLUME 98.1 fl (80.0-96.0); PLATELET COUNT, AUTOMATED 298 10^3/uL (150-450); RED BLOOD COUNT 4.14 10^6/uL (4.30-6.10)
[2022-02-16 06:21] LABS: BLOOD UREA NITROGEN 7 MG/DL (7-18); CALCIUM LEVEL 8.5 MG/DL (8.8-10.2); CARBON DIOXIDE LEVEL 22 MEQ/L (21-32); CHLORIDE LEVEL 100 MEQ/L (98-107); CREATININE FOR GFR 0.58 MG/DL (0.70-1.30); GLOMERULAR FILTRATION RATE > 60.0 (>49); GLUCOSE, FASTING 115 MG/DL (70-100); SODIUM LEVEL 129 MEQ/L (136-145)
[2022-02-16] MEDS ORDERED: NS 1,000 ML IV SCH (07:15)
[2022-02-16] MEDS: amLODIPine 5 MG TAB PO SCH (08:28)
[2022-02-16] MEDS: ATORVASTATIN 20 MG TAB PO SCH (08:28)
[2022-02-16] MEDS: PANTOPRAZOLE 40MG TAB (PROTONIX) PO SCH (08:29)
[2022-02-16] MEDS: MULTIVITAMINS/MINERALS THERAP 1 TAB PO SCH (08:29)
[2022-02-16] MEDS: THIAMINE 100 MG TAB PO SCH ×2 (08:29→20:44)
[2022-02-16] MEDS: FOLIC ACID 1MG TAB PO SCH (09:00)
[2022-02-16] MEDS ORDERED: fentaNYL 100 MCG/2 ML INJECTION IV ONE (09:00)
[2022-02-16] MEDS ORDERED: TRANEXAMIC ACID 100 MG/ML 10ML VIAL As Ordered ONE (13:47)
[2022-02-16] MEDS ORDERED: ROPIVA 125MG/EPINEPH 0.25MG/CLONID 40MCG/KETOR 15MG IN NS 50ML SYRINGE PA ONE (15:00)
[2022-02-16] MEDS ORDERED: propofoL 200 MG/20 ML VIAL As Ordered ONE (15:03)
[2022-02-16] MEDS ORDERED: fentaNYL 250 MCG/5 ML INJECTION As Ordered ONE (15:03)
[2022-02-16] MEDS ORDERED: MIDAZOLAM INJ 2MG/2ML VIAL (J2250 PER 1MG) As Ordered ONE (15:03)
[2022-02-16] MEDS ORDERED: ROCURONIUM BROMIDE 50 MG/5 ML VIAL As Ordered ONE (15:03)
[2022-02-16] MEDS ORDERED: LIDOCAINE 2% 100MG/5ML SDV (FOR ANES.) As Ordered ONE (15:03)
[2022-02-16] MEDS ORDERED: PHENYLephrine 500MCG 5ML (100MCG/ML) SYRINGE As Ordered ONE (16:14)
[2022-02-16] MEDS ORDERED: ceFAZolin 2 GM/D5W 50 ML IV BAG (J0690 PER 500MG) As Ordered ONE (16:25)
[2022-02-16] MEDS ORDERED: PHENYLEPHRINE 10MG/ML 1ML VIAL (J2370 PER 1) As Ordered ONE (17:26)
[2022-02-16] MEDS ORDERED: ACETAMINOPHEN 1000MG 100ML IV BTL (OFIRMEV) (J0131 PER 10MG) As Ordered ONE (18:40)
[2022-02-16] MEDS ORDERED: SUGAMMADEX SODIUM 500 MG/5 ML VIAL (BRIDION) As Ordered ONE (18:42)
[2022-02-16] MEDS ORDERED: dexameTHASONE 4 MG/ML 1ML VIAL (J1100 PER 1MG) As Ordered ONE (18:43)
[2022-02-16] MEDS ORDERED: ONDANSETRON 4MG 2ML VIAL As Ordered ONE (18:43)
[2022-02-16] MEDS ORDERED: KETOROLAC 60MG 2ML VIAL As Ordered ONE (18:43)
[2022-02-16] MEDS ORDERED: ONDANSETRON 4MG 2ML VIAL IV PRN ×2 (19:15→21:00)
[2022-02-16] MEDS ORDERED: LR 1,000 ML IV SCH ×2 (19:15→21:00)
[2022-02-16] MEDS ORDERED: oxyCODONE 5MG TAB PO PRN (19:15)
[2022-02-16] MEDS ORDERED: fentaNYL 100 MCG/2 ML INJECTION IV PRN (19:15)
[2022-02-16] MEDS ORDERED: MORPHINE 2 MG/ML 1ML VIAL IV PRN (19:15)
[2022-02-16] MEDS ORDERED: PROMETHAZINE 25MG/ML 1ML VIAL IV PRN (21:00)
[2022-02-16] MEDS ORDERED: traMADol 50 MG TAB PO PRN (21:00)
[2022-02-16] MEDS: ASPIRIN 81MG ENTERIC TABLET PO SCH (21:20)
[2022-02-17] VITALS (9 sets, daily range): BP systolic 102–130; BP diastolic 60–80; O2SAT 91–96
[2022-02-17] MEDS: ceFAZolin SOD 2 GM in IV 1 EA IV SCH ×2 (01:08→09:49)
[2022-02-17 08:16] LABS: BASO % 0.2 % (0.0-1.0); HEMATOCRIT 38.5 % (42.0-52.0); HEMOGLOBIN 12.8 g/dl (13.5-17.5); LYMPH # 0.6 10^3/uL (1.5-5.0); LYMPH % 4.5 % (24.0-44.0); MEAN CORPUSCULAR HEMOGLOBIN 31.5 pg (27.0-33.0); MEAN CORPUSCULAR HGB CONC 33.2 g/dl (32.0-36.5); MEAN CORPUSCULAR VOLUME 94.8 fl (80.0-96.0); MONO # 1.2 10^3/uL (0.0-0.8); MONO % 9.4 % (2.0-8.0); NEUTROPHILS # 11.3 10^3/uL (1.5-8.5); NEUTROPHILS % 85.2 % (36.0-66.0); PLATELET COUNT, AUTOMATED 291 10^3/uL (150-450); RED BLOOD COUNT 4.06 10^6/uL (4.30-6.10); WHITE BLOOD COUNT 13.2 10^3/uL (4.0-10.0)
[2022-02-17 08:52] LABS: BLOOD UREA NITROGEN 17 MG/DL (7-18); CALCIUM LEVEL 8.3 MG/DL (8.8-10.2); CARBON DIOXIDE LEVEL 24 MEQ/L (21-32); CHLORIDE LEVEL 98 MEQ/L (98-107); CREATININE FOR GFR 0.98 MG/DL (0.70-1.30); GLOMERULAR FILTRATION RATE > 60.0 (>49); GLUCOSE, FASTING 232 MG/DL (70-100); MAGNESIUM LEVEL 2.1 MG/DL (1.8-2.4); POTASSIUM SERUM 4.5 MEQ/L (3.5-5.1); SODIUM LEVEL 132 MEQ/L (136-145)
[2022-02-17] MEDS: amLODIPine 5 MG TAB PO SCH (09:00)
[2022-02-17] MEDS ORDERED: ENOXAPARIN 40MG/0.4ML SYRINGE (J1650 PER 10MG) SC SCH (09:00)
[2022-02-17] MEDS: PANTOPRAZOLE 40MG TAB (PROTONIX) PO SCH (09:49)
[2022-02-17] MEDS: ATORVASTATIN 20 MG TAB PO SCH (09:49)
[2022-02-17] MEDS: ASPIRIN 81MG ENTERIC TABLET PO SCH ×2 (09:49→20:36)
[2022-02-17] MEDS: FOLIC ACID 1MG TAB PO SCH (09:49)
[2022-02-17] MEDS: MULTIVITAMINS/MINERALS THERAP 1 TAB PO SCH (09:49)
[2022-02-17] MEDS: THIAMINE 100 MG TAB PO SCH ×2 (09:50→20:36)
[2022-02-17] MEDS: ACETAMINOPHEN TAB 650MG DOSE (2X325MG) PO PRN (23:19)
[2022-02-18 03:56] VITALS: BP 110/75
[2022-02-18 08:07] LABS: BASO % 0.3 % (0.0-1.0); EOS % 0.3 % (0.0-3.0); HEMATOCRIT 36.9 % (42.0-52.0); HEMOGLOBIN 12.5 g/dl (13.5-17.5); LYMPH # 1.7 10^3/uL (1.5-5.0); LYMPH % 13.9 % (24.0-44.0); MEAN CORPUSCULAR HEMOGLOBIN 32.2 pg (27.0-33.0); MEAN CORPUSCULAR HGB CONC 33.9 g/dl (32.0-36.5); MEAN CORPUSCULAR VOLUME 95.1 fl (80.0-96.0); NEUTROPHILS # 8.9 10^3/uL (1.5-8.5); NEUTROPHILS % 71.9 % (36.0-66.0); PLATELET COUNT, AUTOMATED 276 10^3/uL (150-450); RED BLOOD COUNT 3.88 10^6/uL (4.30-6.10); WHITE BLOOD COUNT 12.3 10^3/uL (4.0-10.0)
[2022-02-18 08:27] LABS: MONO # 1.6 10^3/uL (0.0-0.8)
[2022-02-18] MEDS: ACETAMINOPHEN TAB 650MG DOSE (2X325MG) PO PRN (09:02)
[2022-02-18 09:05] LABS: BLOOD UREA NITROGEN 12 MG/DL (7-18); CALCIUM LEVEL 8.1 MG/DL (8.8-10.2); CARBON DIOXIDE LEVEL 26 MEQ/L (21-32); CHLORIDE LEVEL 98 MEQ/L (98-107); CREATININE FOR GFR 0.75 MG/DL (0.70-1.30); GLOMERULAR FILTRATION RATE > 60.0 (>49); GLUCOSE, FASTING 138 MG/DL (70-100); MAGNESIUM LEVEL 1.9 MG/DL (1.8-2.4); SODIUM LEVEL 130 MEQ/L (136-145)
[2022-02-18] MEDS: ASPIRIN 81MG ENTERIC TABLET PO SCH ×2 (09:17→20:14)
[2022-02-18] MEDS: THIAMINE 100 MG TAB PO SCH (09:20)
[2022-02-18] MEDS: amLODIPine 5 MG TAB PO SCH (09:20)
[2022-02-18] MEDS: PANTOPRAZOLE 40MG TAB (PROTONIX) PO SCH (09:20)
[2022-02-18] MEDS: FOLIC ACID 1MG TAB PO SCH (09:20)
[2022-02-18] MEDS: ATORVASTATIN 20 MG TAB PO SCH (09:20)
[2022-02-18] MEDS: MULTIVITAMINS/MINERALS THERAP 1 TAB PO SCH (09:21)
[2022-02-18 12:00] VITALS: BP 120/78
[2022-02-18 12:56] VITALS: O2SAT 97
[2022-02-18] MEDS ORDERED: NITROGLYCERIN 0.4 MG SUBL TABLET SL PRN (15:00)
[2022-02-18] MEDS: FINASTERIDE 5MG TAB PO SCH (15:28)
[2022-02-18] MEDS: FUROSEMIDE 40 MG TAB PO SCH (15:28)
[2022-02-18] MEDS: CETIRIZINE (ZyrTEC) 10 MG TAB PO SCH (15:29)
[2022-02-18] MEDS: SUCRALFATE 1 GM TAB PO SCH ×2 (16:26→20:14)
[2022-02-18] MEDS: PERCOCET 5MG/325MG TAB PO PRN (18:14)
[2022-02-18] MEDS: FLUTICASONE HFA 220 MCG 12 GM INHALER (FLOVENT) INH SCH (19:50)
[2022-02-18 19:54] VITALS: BP 110/68
[2022-02-18 21:10] VITALS: BP 110/58; O2SAT 95
[2022-02-18] MEDS ORDERED: BISACODYL 5 MG TAB PO PRN (22:10)
[2022-02-18] MEDS: DOCUSATE SODIUM 100MG CAPSULE PO SCH (22:23)
[2022-02-19 05:35] VITALS: BP 128/81
[2022-02-19 06:58] LABS: BASO # 0.1 10^3/uL (0.0-0.2); BASO % 0.5 % (0.0-1.0); EOS # 0.1 10^3/uL (0.0-0.5); EOS % 1.3 % (0.0-3.0); HEMATOCRIT 31.5 % (42.0-52.0); HEMOGLOBIN 10.9 g/dl (13.5-17.5); LYMPH # 1.7 10^3/uL (1.5-5.0); MEAN CORPUSCULAR HEMOGLOBIN 33.1 pg (27.0-33.0); MEAN CORPUSCULAR HGB CONC 34.6 g/dl (32.0-36.5); MEAN CORPUSCULAR VOLUME 95.7 fl (80.0-96.0); MONO # 1.4 10^3/uL (0.0-0.8); MONO % 13.8 % (2.0-8.0); NEUTROPHILS # 6.6 10^3/uL (1.5-8.5); NEUTROPHILS % 66.6 % (36.0-66.0); PLATELET COUNT, AUTOMATED 246 10^3/uL (150-450); RED BLOOD COUNT 3.29 10^6/uL (4.30-6.10); WHITE BLOOD COUNT 9.8 10^3/uL (4.0-10.0)
[2022-02-19 07:37] LABS: BLOOD UREA NITROGEN 11 MG/DL (7-18); CALCIUM LEVEL 7.5 MG/DL (8.8-10.2); CARBON DIOXIDE LEVEL 26 MEQ/L (21-32); CHLORIDE LEVEL 99 MEQ/L (98-107); CREATININE FOR GFR 0.55 MG/DL (0.70-1.30); GLOMERULAR FILTRATION RATE > 60.0 (>49); GLUCOSE, FASTING 103 MG/DL (70-100); MAGNESIUM LEVEL 1.7 MG/DL (1.8-2.4); POTASSIUM SERUM 3.8 MEQ/L (3.5-5.1); SODIUM LEVEL 132 MEQ/L (136-145)
[2022-02-19] MEDS: FLUTICASONE HFA 220 MCG 12 GM INHALER (FLOVENT) INH SCH ×2 (08:00→20:00)
[2022-02-19] MEDS ORDERED: MAGNESIUM OXIDE 400MG TAB (MAG-OX) PO ONE (09:40)
[2022-02-19] MEDS ORDERED: BISACODYL 10 MG SUPP PR ONE (09:40)
[2022-02-19] MEDS: PERCOCET 5MG/325MG TAB PO PRN ×2 (09:48→20:02)
[2022-02-19] MEDS: ASPIRIN 81MG ENTERIC TABLET PO SCH ×2 (09:49→20:02)
[2022-02-19] MEDS: amLODIPine 5 MG TAB PO SCH (09:49)
[2022-02-19] MEDS: DOCUSATE SODIUM 100MG CAPSULE PO SCH ×2 (09:49→20:02)
[2022-02-19] MEDS: ATORVASTATIN 20 MG TAB PO SCH (09:49)
[2022-02-19] MEDS: MIRALAX *UNIT DOSE* 17GM PACKET PO SCH (09:49)
[2022-02-19] MEDS: FOLIC ACID 1MG TAB PO SCH (09:49)
[2022-02-19] MEDS: CETIRIZINE (ZyrTEC) 10 MG TAB PO SCH (09:49)
[2022-02-19] MEDS: MULTIVITAMINS/MINERALS THERAP 1 TAB PO SCH (09:49)
[2022-02-19] MEDS: FUROSEMIDE 40 MG TAB PO SCH (09:49)
[2022-02-19] MEDS: PANTOPRAZOLE 40MG TAB (PROTONIX) PO SCH (09:49)
[2022-02-19] MEDS: SUCRALFATE 1 GM TAB PO SCH ×3 (09:50→20:02)
[2022-02-19] MEDS: FINASTERIDE 5MG TAB PO SCH (09:50)
[2022-02-20] MEDS: PERCOCET 5MG/325MG TAB PO PRN ×3 (02:29→20:53)
[2022-02-20 06:00] VITALS: BP 127/77
[2022-02-20 06:13] LABS: BASO # 0.1 10^3/uL (0.0-0.2); BASO % 0.7 % (0.0-1.0); EOS # 0.2 10^3/uL (0.0-0.5); EOS % 2.5 % (0.0-3.0); HEMATOCRIT 32.4 % (42.0-52.0); HEMOGLOBIN 10.7 g/dl (13.5-17.5); LYMPH # 1.9 10^3/uL (1.5-5.0); LYMPH % 21.8 % (24.0-44.0); MEAN CORPUSCULAR HEMOGLOBIN 31.3 pg (27.0-33.0); MEAN CORPUSCULAR VOLUME 94.7 fl (80.0-96.0); MONO # 1.1 10^3/uL (0.0-0.8); MONO % 12.6 % (2.0-8.0); NEUTROPHILS # 5.2 10^3/uL (1.5-8.5); NEUTROPHILS % 61.3 % (36.0-66.0); PLATELET COUNT, AUTOMATED 252 10^3/uL (150-450); RED BLOOD COUNT 3.42 10^6/uL (4.30-6.10); WHITE BLOOD COUNT 8.5 10^3/uL (4.0-10.0)
[2022-02-20 06:43] LABS: BLOOD UREA NITROGEN 10 MG/DL (7-18); CALCIUM LEVEL 7.6 MG/DL (8.8-10.2); CARBON DIOXIDE LEVEL 28 MEQ/L (21-32); CHLORIDE LEVEL 100 MEQ/L (98-107); CREATININE FOR GFR 0.58 MG/DL (0.70-1.30); GLOMERULAR FILTRATION RATE > 60.0 (>49); GLUCOSE, FASTING 92 MG/DL (70-100); MAGNESIUM LEVEL 1.9 MG/DL (1.8-2.4); POTASSIUM SERUM 4.1 MEQ/L (3.5-5.1); SODIUM LEVEL 132 MEQ/L (136-145)
[2022-02-20] MEDS: FLUTICASONE HFA 220 MCG 12 GM INHALER (FLOVENT) INH SCH ×2 (08:00→20:00)
[2022-02-20] MEDS: FINASTERIDE 5MG TAB PO SCH (09:53)
[2022-02-20] MEDS: FUROSEMIDE 40 MG TAB PO SCH (09:53)
[2022-02-20] MEDS: SUCRALFATE 1 GM TAB PO SCH ×3 (09:53→20:54)
[2022-02-20] MEDS: MIRALAX *UNIT DOSE* 17GM PACKET PO SCH (09:53)
[2022-02-20] MEDS: DOCUSATE SODIUM 100MG CAPSULE PO SCH ×2 (09:53→20:54)
[2022-02-20] MEDS: CETIRIZINE (ZyrTEC) 10 MG TAB PO SCH (09:53)
[2022-02-20] MEDS: ASPIRIN 81MG ENTERIC TABLET PO SCH ×2 (09:53→20:53)
[2022-02-20] MEDS: ATORVASTATIN 20 MG TAB PO SCH (09:54)
[2022-02-20] MEDS: MULTIVITAMINS/MINERALS THERAP 1 TAB PO SCH (09:54)
[2022-02-20] MEDS: FOLIC ACID 1MG TAB PO SCH (09:54)
[2022-02-20] MEDS: PANTOPRAZOLE 40MG TAB (PROTONIX) PO SCH (09:54)
[2022-02-20] MEDS: amLODIPine 5 MG TAB PO SCH (09:55)
[2022-02-20] MEDS: MOM 30ML SUSPENSION UDC PO PRN (14:25)
[2022-02-20] MEDS: CYCLOBENZAPRINE 5MG TABLET PO PRN (14:26)
[2022-02-21 04:50] VITALS: BP 123/78
[2022-02-21] MEDS: PERCOCET 5MG/325MG TAB PO PRN ×3 (04:59→20:39)
[2022-02-21 06:59] LABS: BASO # 0.1 10^3/uL (0.0-0.2); BASO % 0.8 % (0.0-1.0); EOS # 0.3 10^3/uL (0.0-0.5); EOS % 3.4 % (0.0-3.0); HEMATOCRIT 31.8 % (42.0-52.0); HEMOGLOBIN 10.9 g/dl (13.5-17.5); LYMPH # 1.7 10^3/uL (1.5-5.0); LYMPH % 21.9 % (24.0-44.0); MEAN CORPUSCULAR HEMOGLOBIN 32.2 pg (27.0-33.0); MEAN CORPUSCULAR HGB CONC 34.3 g/dl (32.0-36.5); MEAN CORPUSCULAR VOLUME 94.1 fl (80.0-96.0); MONO # 1.1 10^3/uL (0.0-0.8); NEUTROPHILS # 4.6 10^3/uL (1.5-8.5); NEUTROPHILS % 59.1 % (36.0-66.0); PLATELET COUNT, AUTOMATED 279 10^3/uL (150-450); RED BLOOD COUNT 3.38 10^6/uL (4.30-6.10); WHITE BLOOD COUNT 7.7 10^3/uL (4.0-10.0)
[2022-02-21 07:23] LABS: BLOOD UREA NITROGEN 11 MG/DL (7-18); CALCIUM LEVEL 7.9 MG/DL (8.8-10.2); CARBON DIOXIDE LEVEL 27 MEQ/L (21-32); CHLORIDE LEVEL 99 MEQ/L (98-107); CREATININE FOR GFR 0.61 MG/DL (0.70-1.30); GLOMERULAR FILTRATION RATE > 60.0 (>49); GLUCOSE, FASTING 116 MG/DL (70-100); MAGNESIUM LEVEL 2.1 MG/DL (1.8-2.4); POTASSIUM SERUM 4.2 MEQ/L (3.5-5.1); SODIUM LEVEL 130 MEQ/L (136-145)
[2022-02-21] MEDS: FLUTICASONE HFA 220 MCG 12 GM INHALER (FLOVENT) INH SCH ×2 (07:38→19:27)
[2022-02-21] MEDS: FOLIC ACID 1MG TAB PO SCH (09:56)
[2022-02-21] MEDS: ASPIRIN 81MG ENTERIC TABLET PO SCH ×2 (09:56→20:38)
[2022-02-21] MEDS: MIRALAX *UNIT DOSE* 17GM PACKET PO SCH (09:57)
[2022-02-21] MEDS: CETIRIZINE (ZyrTEC) 10 MG TAB PO SCH (09:57)
[2022-02-21] MEDS: DOCUSATE SODIUM 100MG CAPSULE PO SCH ×2 (09:57→20:38)
[2022-02-21] MEDS: ATORVASTATIN 20 MG TAB PO SCH (09:58)
[2022-02-21] MEDS: PANTOPRAZOLE 40MG TAB (PROTONIX) PO SCH (09:59)
[2022-02-21] MEDS: SUCRALFATE 1 GM TAB PO SCH ×3 (09:59→20:38)
[2022-02-21] MEDS: FUROSEMIDE 40 MG TAB PO SCH (09:59)
[2022-02-21] MEDS: FINASTERIDE 5MG TAB PO SCH (10:00)
[2022-02-21] MEDS: MULTIVITAMINS/MINERALS THERAP 1 TAB PO SCH (10:00)
[2022-02-21] MEDS: amLODIPine 5 MG TAB PO SCH (10:05)
[2022-02-21] MEDS: MOM 30ML SUSPENSION UDC PO PRN (16:12)
[2022-02-22 05:54] VITALS: BP 135/89
[2022-02-22] MEDS: PERCOCET 5MG/325MG TAB PO PRN ×2 (06:16→12:43)
[2022-02-22 06:37] LABS: HEMATOCRIT 33.6 % (42.0-52.0); HEMOGLOBIN 11.2 g/dl (13.5-17.5); MEAN CORPUSCULAR HEMOGLOBIN 31.8 pg (27.0-33.0); MEAN CORPUSCULAR HGB CONC 33.3 g/dl (32.0-36.5); MEAN CORPUSCULAR VOLUME 95.5 fl (80.0-96.0); PLATELET COUNT, AUTOMATED 349 10^3/uL (150-450); RED BLOOD COUNT 3.52 10^6/uL (4.30-6.10); WHITE BLOOD COUNT 7.3 10^3/uL (4.0-10.0)
[2022-02-22 07:14] LABS: BLOOD UREA NITROGEN 10 MG/DL (7-18); CALCIUM LEVEL 8.3 MG/DL (8.8-10.2); CARBON DIOXIDE LEVEL 29 MEQ/L (21-32); CHLORIDE LEVEL 98 MEQ/L (98-107); CREATININE FOR GFR 0.65 MG/DL (0.70-1.30); GLOMERULAR FILTRATION RATE > 60.0 (>49); GLUCOSE, FASTING 101 MG/DL (70-100); MAGNESIUM LEVEL 2.4 MG/DL (1.8-2.4); POTASSIUM SERUM 4.5 MEQ/L (3.5-5.1); SODIUM LEVEL 131 MEQ/L (136-145)
[2022-02-22] MEDS: FLUTICASONE HFA 220 MCG 12 GM INHALER (FLOVENT) INH SCH ×2 (08:00→20:00)
[2022-02-22] MEDS: MIRALAX *UNIT DOSE* 17GM PACKET PO SCH (09:29)
[2022-02-22] MEDS: ATORVASTATIN 20 MG TAB PO SCH (09:30)
[2022-02-22] MEDS: PANTOPRAZOLE 40MG TAB (PROTONIX) PO SCH (09:30)
[2022-02-22] MEDS: FUROSEMIDE 40 MG TAB PO SCH (09:34)
[2022-02-22] MEDS: ASPIRIN 81MG ENTERIC TABLET PO SCH ×2 (09:35→20:08)
[2022-02-22] MEDS: amLODIPine 5 MG TAB PO SCH (09:36)
[2022-02-22] MEDS: FINASTERIDE 5MG TAB PO SCH (09:36)
[2022-02-22] MEDS: MULTIVITAMINS/MINERALS THERAP 1 TAB PO SCH (09:36)
[2022-02-22] MEDS: FOLIC ACID 1MG TAB PO SCH (09:36)
[2022-02-22] MEDS: DOCUSATE SODIUM 100MG CAPSULE PO SCH ×2 (09:37→20:08)
[2022-02-22] MEDS: SUCRALFATE 1 GM TAB PO SCH ×3 (09:37→20:08)
[2022-02-22] MEDS: CETIRIZINE (ZyrTEC) 10 MG TAB PO SCH (09:37)
[2022-02-22 09:52] LABS: ATYPICAL LYMPH 1 % (0-5); EOSINOPHILS 4 % (0-3); LYMPHOCYTES 24 % (16-44); MONOCYTES 10 % (0-5); NEUTROPHILS 61 % (28-66)
[2022-02-22 09:54] LABS: PLATELET ESTIMATE NORMAL (NORMAL)
[2022-02-23] MEDS: PERCOCET 5MG/325MG TAB PO PRN ×3 (03:10→20:10)
[2022-02-23 06:00] VITALS: BP 129/86
[2022-02-23 06:29] LABS: HEMATOCRIT 35.3 % (42.0-52.0); HEMOGLOBIN 11.7 g/dl (13.5-17.5); MEAN CORPUSCULAR HEMOGLOBIN 31.4 pg (27.0-33.0); MEAN CORPUSCULAR HGB CONC 33.1 g/dl (32.0-36.5); MEAN CORPUSCULAR VOLUME 94.6 fl (80.0-96.0); PLATELET COUNT, AUTOMATED 367 10^3/uL (150-450); RED BLOOD COUNT 3.73 10^6/uL (4.30-6.10); WHITE BLOOD COUNT 8.2 10^3/uL (4.0-10.0)
[2022-02-23 07:00] LABS: ATYPICAL LYMPH 2 % (0-5); BASOPHILS 2 % (0-1); EOSINOPHILS 2 % (0-3); LYMPHOCYTES 24 % (16-44); MONOCYTES 14 % (0-5); NEUTROPHILS 56 % (28-66)
[2022-02-23 07:01] LABS: PLATELET ESTIMATE NORMAL (NORMAL)
[2022-02-23 07:12] LABS: BLOOD UREA NITROGEN 10 MG/DL (7-18); CALCIUM LEVEL 8.5 MG/DL (8.8-10.2); CARBON DIOXIDE LEVEL 28 MEQ/L (21-32); CHLORIDE LEVEL 98 MEQ/L (98-107); CREATININE FOR GFR 0.72 MG/DL (0.70-1.30); GLOMERULAR FILTRATION RATE > 60.0 (>49); GLUCOSE, FASTING 98 MG/DL (70-100); MAGNESIUM LEVEL 2.1 MG/DL (1.8-2.4); POTASSIUM SERUM 4.9 MEQ/L (3.5-5.1); SODIUM LEVEL 132 MEQ/L (136-145)
[2022-02-23] MEDS: FLUTICASONE HFA 220 MCG 12 GM INHALER (FLOVENT) INH SCH ×2 (08:00→18:47)
[2022-02-23] MEDS: ASPIRIN 81MG ENTERIC TABLET PO SCH ×2 (08:03→20:10)
[2022-02-23] MEDS: MULTIVITAMINS/MINERALS THERAP 1 TAB PO SCH (08:03)
[2022-02-23] MEDS: FOLIC ACID 1MG TAB PO SCH (08:03)
[2022-02-23] MEDS: ATORVASTATIN 20 MG TAB PO SCH (08:03)
[2022-02-23] MEDS: CETIRIZINE (ZyrTEC) 10 MG TAB PO SCH (08:03)
[2022-02-23] MEDS: PANTOPRAZOLE 40MG TAB (PROTONIX) PO SCH (08:03)
[2022-02-23] MEDS: SUCRALFATE 1 GM TAB PO SCH ×3 (08:03→20:09)
[2022-02-23] MEDS: FINASTERIDE 5MG TAB PO SCH (08:04)
[2022-02-23] MEDS: MIRALAX *UNIT DOSE* 17GM PACKET PO SCH (08:04)
[2022-02-23] MEDS: FUROSEMIDE 40 MG TAB PO SCH (08:04)
[2022-02-23] MEDS: DOCUSATE SODIUM 100MG CAPSULE PO SCH ×2 (08:04→20:10)
[2022-02-23] MEDS: amLODIPine 5 MG TAB PO SCH (08:04)
[2022-02-24 06:00] VITALS: BP 129/88
[2022-02-24 06:46] LABS: BASO # 0.1 10^3/uL (0.0-0.2); BASO % 1.3 % (0.0-1.0); EOS # 0.2 10^3/uL (0.0-0.5); EOS % 3.2 % (0.0-3.0); HEMOGLOBIN 11.4 g/dl (13.5-17.5); LYMPH % 26.2 % (24.0-44.0); MEAN CORPUSCULAR HEMOGLOBIN 31.6 pg (27.0-33.0); MEAN CORPUSCULAR HGB CONC 33.5 g/dl (32.0-36.5); MEAN CORPUSCULAR VOLUME 94.2 fl (80.0-96.0); MONO # 1.4 10^3/uL (0.0-0.8); MONO % 18.9 % (2.0-8.0); NEUTROPHILS # 3.7 10^3/uL (1.5-8.5); NEUTROPHILS % 48.5 % (36.0-66.0); PLATELET COUNT, AUTOMATED 393 10^3/uL (150-450); RED BLOOD COUNT 3.61 10^6/uL (4.30-6.10); WHITE BLOOD COUNT 7.5 10^3/uL (4.0-10.0)
[2022-02-24 07:13] LABS: BLOOD UREA NITROGEN 12 MG/DL (7-18); CALCIUM LEVEL 8.4 MG/DL (8.8-10.2); CARBON DIOXIDE LEVEL 28 MEQ/L (21-32); CHLORIDE LEVEL 97 MEQ/L (98-107); CREATININE FOR GFR 0.67 MG/DL (0.70-1.30); GLOMERULAR FILTRATION RATE > 60.0 (>49); GLUCOSE, FASTING 100 MG/DL (70-100); MAGNESIUM LEVEL 2.1 MG/DL (1.8-2.4); SODIUM LEVEL 130 MEQ/L (136-145)
[2022-02-24] MEDS: FLUTICASONE HFA 220 MCG 12 GM INHALER (FLOVENT) INH SCH (07:37)
[2022-02-24] MEDS: ASPIRIN 81MG ENTERIC TABLET PO SCH (08:43)
[2022-02-24 08:44] VITALS: BP 133/89
[2022-02-24] MEDS: SUCRALFATE 1 GM TAB PO SCH (08:44)
[2022-02-24] MEDS: MIRALAX *UNIT DOSE* 17GM PACKET PO SCH (08:44)
[2022-02-24] MEDS: amLODIPine 5 MG TAB PO SCH (08:44)
[2022-02-24] MEDS: ATORVASTATIN 20 MG TAB PO SCH (08:44)
[2022-02-24] MEDS: FOLIC ACID 1MG TAB PO SCH (08:45)
[2022-02-24] MEDS: CETIRIZINE (ZyrTEC) 10 MG TAB PO SCH (08:45)
[2022-02-24] MEDS: PANTOPRAZOLE 40MG TAB (PROTONIX) PO SCH (08:45)
[2022-02-24] MEDS: DOCUSATE SODIUM 100MG CAPSULE PO SCH (08:45)
[2022-02-24] MEDS: FINASTERIDE 5MG TAB PO SCH (08:45)
[2022-02-24] MEDS: MULTIVITAMINS/MINERALS THERAP 1 TAB PO SCH (08:45)
[2022-02-24] MEDS: PERCOCET 5MG/325MG TAB PO PRN (08:46)
[2022-02-24] MEDS ORDERED: VITMTA PO (10:13)
[2022-02-24] MEDS ORDERED: AMLO1TAB24 PO (10:13)
[2022-02-24] MEDS ORDERED: ASPI81TAEC PO (10:13)
[2022-02-24] MEDS ORDERED: ATOR1TAB21 PO (10:13)
[2022-02-24] MEDS ORDERED: FOLI1TAB11 PO (10:13)
[2022-02-24] MEDS ORDERED: PERCOCET PO (10:13)
[2022-02-24] MEDS ORDERED: CYCL5TAB PO (10:13)
[2022-02-24] MEDS ORDERED: PANT40TA29 PO (10:13)
== END 2022-02-24 11:38 | disposition home health service (06) | DRG 301 ==
LOC: M ED 13:32 → EDBD 13:32 → M ED INP 16:49 → M PCU 18:44 → M MSPAV 02-18 21:05
PROVIDERS: ADMIT Internal Medicine; ATTEND Internal Medicine
PROC: 0SRS0J9 Replacement of Left Hip Joint, Femoral Surface with Synthetic Substitute, Cemented, Open Approach (ICD-10-PCS; principal; 2022-02-16 15:00)
DX: S72.142A Displaced intertrochanteric fracture of left femur, initial encounter for closed fracture (principal); I11.0 Hypertensive heart disease with heart failure; I50.32 Chronic diastolic (congestive) heart failure; E78.5 Hyperlipidemia, unspecified; J44.9 Chronic obstructive pulmonary disease, unspecified; I25.10 Atherosclerotic heart disease of native coronary artery without angina pectoris; Z95.5 Presence of coronary angioplasty implant and graft; F17.210 Nicotine dependence, cigarettes, uncomplicated; K21.9 Gastro-esophageal reflux disease without esophagitis; F10.20 Alcohol dependence, uncomplicated; Z71.6 Tobacco abuse counseling; W01.0XXA Fall on same level from slipping, tripping and stumbling without subsequent striking against object, initial encounter; Y92.009 Unspecified place in unspecified non-institutional (private) residence as the place of occurrence of the external cause; Z79.899 Other long term (current) drug therapy; N40.0 Benign prostatic hyperplasia without lower urinary tract symptoms; D72.829 Elevated white blood cell count, unspecified; E87.1 Hypo-osmolality and hyponatremia; I27.20 Pulmonary hypertension, unspecified

== ENCOUNTER → 2022-03-11 | Outpatient (CLI) | payer OTHER ==
[~2022-03-11] MED LIST changes: +AMLO1TAB24 PO; +ARNU1INH3 INH; +ASPI81TAEC PO; +ATOR1TAB21 PO; +CETI-24 PO; +CYCL5TAB PO; +DILT240C28 PO; +FINA5TAB2 PO; +FURO40TA2 PO; +MED REC COMMENT; +NITR0.4S14 SL; +POTA10CA32 PO; +TERA2CAP3 PO; +VERI2.5T PO
== END ==
LOC: M SOG 08:23
PROVIDERS: ATTEND Orthopaedic Surgery Adult Reconstructive Orthopaedic Surgery
DX: M25.552 Pain in left hip (principal); Z96.652 Presence of left artificial knee joint

== ENCOUNTER 2022-05-23 16:43 | Inpatient (IN) | payer OTHER ==
[~2022-05-23] VITALS: Ht 185.4 cm; Wt 69.4 kg
[~2022-05-23 16:43] MED LIST changes: -POTA10CA32 PO; +POTA10CA33 PO
[2022-05-23 19:51] LABS: BASO # 0.1 10^3/uL (0.0-0.2); BASO % 0.7 % (0.0-1.0); EOS # 0.1 10^3/uL (0.0-0.5); EOS % 1.2 % (0.0-3.0); HEMATOCRIT 38.4 % (42.0-52.0); HEMOGLOBIN 13.2 g/dl (13.5-17.5); LYMPH # 2.3 10^3/uL (1.5-5.0); LYMPH % 30.8 % (24.0-44.0); MEAN CORPUSCULAR HEMOGLOBIN 29.9 pg (27.0-33.0); MEAN CORPUSCULAR HGB CONC 34.4 g/dl (32.0-36.5); MEAN CORPUSCULAR VOLUME 87.1 fl (80.0-96.0); MONO # 0.9 10^3/uL (0.0-0.8); NEUTROPHILS # 4.2 10^3/uL (1.5-8.5); NEUTROPHILS % 55.2 % (36.0-66.0); PLATELET COUNT, AUTOMATED 199 10^3/uL (150-450); RED BLOOD COUNT 4.41 10^6/uL (4.30-6.10); WHITE BLOOD COUNT 7.6 10^3/uL (4.0-10.0)
[2022-05-23] MEDS ORDERED: ACETAMINOPHEN TAB 650MG DOSE (2X325MG) PO PRN (19:55)
[2022-05-23 20:22] LABS: ALBUMIN 3.7 G/DL (3.2-5.2); ALKALINE PHOSPHATASE 130 U/L (46-116); ALT/SGPT 19 U/L (7.0-40); AST/SGOT 40 U/L (<34); BILIRUBIN,DIRECT 0.2 MG/DL (<0.4); BILIRUBIN,TOTAL 0.6 MG/DL (0.3-1.2); BLOOD UREA NITROGEN 7 MG/DL (9-23); CALCIUM LEVEL 8.4 MG/DL (8.3-10.6); CARBON DIOXIDE LEVEL 23 MMOL/L (20-31); CHLORIDE LEVEL 97 MMOL/L (98-107); CREATININE FOR GFR 0.62 MG/DL (0.70-1.30); GLOMERULAR FILTRATION RATE > 60.0 (>49); GLUCOSE, FASTING 70 MG/DL (74-106); POTASSIUM SERUM 3.9 MMOL/L (3.5-5.1); SODIUM LEVEL 131 MMOL/L (136-145); TOTAL PROTEIN 6.9 G/DL (5.7-8.2)
[2022-05-23 20:26] LABS: RSV AMPLIFICATION NEGATIVE (NEGATIVE); THYROID STIMULATING HORMONE 2.526 uIU/ML (0.55-4.78); THYROXINE (T4) 9.3 UG/DL (4.5-10.9)
[2022-05-23 20:27] LABS: FREE THYROXINE INDEX 4.5 % (1.4-3.8); T UPTAKE 48.5 % (22.5-37.0)
[2022-05-23] MEDS ORDERED: AMLO1TAB24 PO (20:31)
[2022-05-23] MEDS ORDERED: PANT-23 PO (20:31)
[2022-05-23] MEDS ORDERED: ASPI81TA26 PO (20:31)
[2022-05-23] MEDS ORDERED: FOLI1TAB11 PO (20:31)
[2022-05-23] MEDS ORDERED: THERTAB52 PO (20:31)
[2022-05-23] MEDS ORDERED: ATOR1TAB21 PO (20:31)
[2022-05-23] MEDS: PERCOCET 5MG/325MG TAB PO PRN (20:32)
[2022-05-23] MEDS ORDERED: HOME MED LIST COMPLETE! XX SCH (20:35)
[2022-05-23] MEDS ORDERED: NITROGLYCERIN 0.4MG SUBL TABLET SL PRN (20:40)
[2022-05-23] MEDS ORDERED: LORazepam 2 MG TAB PO PRN (20:55)
[2022-05-23 22:00] VITALS: BP 108/71
[2022-05-23 22:15] LABS: INR 1.06
[2022-05-23 22:16] LABS: PARTIAL THROMBOPLASTIN TIME 29.8 SECONDS (24.8-34.2)
[2022-05-23] MEDS: ASPIRIN 81MG ENTERIC TABLET PO SCH (22:21)
[2022-05-23] MEDS: KETOROLAC 30 MG/ML 1ML VIAL IV PRN (22:22)
[2022-05-23] MEDS: THIAMINE 100 MG TAB PO SCH (22:22)
[2022-05-23] MEDS: SUCRALFATE 1 GM TAB PO SCH (22:22)
[2022-05-24 00:25] VITALS: BP 108/71
[2022-05-24] MEDS: KETOROLAC 30 MG/ML 1ML VIAL IV PRN ×3 (04:42→18:18)
[2022-05-24 06:00] VITALS: BP 117/74
[2022-05-24 06:42] VITALS: BP 117/74
[2022-05-24 07:17] LABS: HEMATOCRIT 34.7 % (42.0-52.0); MEAN CORPUSCULAR HEMOGLOBIN 30.2 pg (27.0-33.0); MEAN CORPUSCULAR HGB CONC 34.6 g/dl (32.0-36.5); MEAN CORPUSCULAR VOLUME 87.4 fl (80.0-96.0); PLATELET COUNT, AUTOMATED 202 10^3/uL (150-450); RED BLOOD COUNT 3.97 10^6/uL (4.30-6.10); WHITE BLOOD COUNT 5.1 10^3/uL (4.0-10.0)
[2022-05-24] MEDS: FLUTICASONE HFA 220 MCG 12 GM INHALER (FLOVENT) INH SCH ×2 (07:30→20:00)
[2022-05-24 07:43] LABS: MAGNESIUM LEVEL 1.7 MG/DL (1.8-2.4)
[2022-05-24 07:44] LABS: BLOOD UREA NITROGEN 8 MG/DL (9-23); CALCIUM LEVEL 8.3 MG/DL (8.3-10.6); CARBON DIOXIDE LEVEL 25 MMOL/L (20-31); CHLORIDE LEVEL 98 MMOL/L (98-107); CREATININE FOR GFR 0.62 MG/DL (0.70-1.30); GLOMERULAR FILTRATION RATE > 60.0 (>49); GLUCOSE, FASTING 79 MG/DL (74-106); SODIUM LEVEL 132 MMOL/L (136-145)
[2022-05-24] MEDS: SUCRALFATE 1 GM TAB PO SCH ×3 (08:53→20:46)
[2022-05-24] MEDS: MULTIVITAMINS/MINERALS THERAP 1 TAB PO SCH (08:53)
[2022-05-24] MEDS: PANTOPRAZOLE 40MG TAB (PROTONIX) PO SCH (08:54)
[2022-05-24] MEDS: THIAMINE 100 MG TAB PO SCH ×2 (08:54→20:46)
[2022-05-24] MEDS: CETIRIZINE (ZyrTEC) 10 MG TAB PO SCH (08:54)
[2022-05-24] MEDS: ENOXAPARIN 40MG/0.4ML SYRINGE (J1650 PER 10MG) SC SCH (08:54)
[2022-05-24] MEDS: ATORVASTATIN 20 MG TAB PO SCH (08:54)
[2022-05-24] MEDS: FUROSEMIDE 40 MG TAB PO SCH (08:55)
[2022-05-24] MEDS: FOLIC ACID 1MG TAB PO SCH (08:55)
[2022-05-24] MEDS: FINASTERIDE 5MG TAB PO SCH (08:55)
[2022-05-24] MEDS: amLODIPine 5 MG TAB PO SCH (08:58)
[2022-05-24] MEDS: MAGNESIUM OXIDE 400MG TAB (MAG-OX) PO SCH ×3 (10:52→20:46)
[2022-05-24] MEDS: LIDOCAINE 5% (LIDODERM) PATCH TD SCH (13:10)
[2022-05-24] MEDS: PERCOCET 5MG/325MG TAB PO PRN (13:49)
[2022-05-24 14:00] VITALS: BP_SYST 105; BP_SYST 120; BP_DIAS 71; BP_DIAS 80
[2022-05-24] MEDS: MORPHINE 2 MG/ML 1ML VIAL IV PRN ×2 (15:29→20:47)
[2022-05-24] MEDS: ASPIRIN 81MG ENTERIC TABLET PO SCH (20:46)
[2022-05-24 22:00] VITALS: BP 110/66
[2022-05-24 23:16] VITALS: BP 110/66
[2022-05-25] MEDS: KETOROLAC 30 MG/ML 1ML VIAL IV PRN ×3 (01:33→16:21)
[2022-05-25 06:00] VITALS: BP 136/85
[2022-05-25] MEDS: ACETAMINOPHEN 500 MG TAB PO SCH ×3 (06:00→17:23)
[2022-05-25 06:06] LABS: HEMATOCRIT 34.9 % (42.0-52.0); HEMOGLOBIN 12.3 g/dl (13.5-17.5); MEAN CORPUSCULAR HGB CONC 35.2 g/dl (32.0-36.5); MEAN CORPUSCULAR VOLUME 87.9 fl (80.0-96.0); PLATELET COUNT, AUTOMATED 206 10^3/uL (150-450); RED BLOOD COUNT 3.97 10^6/uL (4.30-6.10); WHITE BLOOD COUNT 5.5 10^3/uL (4.0-10.0)
[2022-05-25 06:33] VITALS: BP 136/85
[2022-05-25 06:38] LABS: BLOOD UREA NITROGEN 12 MG/DL (9-23); CALCIUM LEVEL 8.1 MG/DL (8.3-10.6); CARBON DIOXIDE LEVEL 26 MMOL/L (20-31); CHLORIDE LEVEL 99 MMOL/L (98-107); CREATININE FOR GFR 0.66 MG/DL (0.70-1.30); GLOMERULAR FILTRATION RATE > 60.0 (>49); GLUCOSE, FASTING 88 MG/DL (74-106); SODIUM LEVEL 131 MMOL/L (136-145)
[2022-05-25] MEDS: FLUTICASONE HFA 220 MCG 12 GM INHALER (FLOVENT) INH SCH ×2 (08:00→20:00)
[2022-05-25] MEDS: ENOXAPARIN 40MG/0.4ML SYRINGE (J1650 PER 10MG) SC SCH (09:07)
[2022-05-25] MEDS: THIAMINE 100 MG TAB PO SCH ×2 (09:08→20:46)
[2022-05-25] MEDS: PANTOPRAZOLE 40MG TAB (PROTONIX) PO SCH (09:08)
[2022-05-25] MEDS: FOLIC ACID 1MG TAB PO SCH (09:08)
[2022-05-25] MEDS: ATORVASTATIN 20 MG TAB PO SCH (09:08)
[2022-05-25] MEDS: MULTIVITAMINS/MINERALS THERAP 1 TAB PO SCH (09:08)
[2022-05-25] MEDS: LIDOCAINE 5% (LIDODERM) PATCH TD SCH (09:08)
[2022-05-25] MEDS: FINASTERIDE 5MG TAB PO SCH (09:08)
[2022-05-25] MEDS: SUCRALFATE 1 GM TAB PO SCH ×3 (09:09→20:46)
[2022-05-25] MEDS: CETIRIZINE (ZyrTEC) 10 MG TAB PO SCH (09:09)
[2022-05-25] MEDS: amLODIPine 5 MG TAB PO SCH (09:09)
[2022-05-25] MEDS: FUROSEMIDE 40 MG TAB PO SCH (09:09)
[2022-05-25 14:00] VITALS: BP 115/77
[2022-05-25] MEDS: ASPIRIN 81MG ENTERIC TABLET PO SCH (20:46)
[2022-05-25 20:49] VITALS: BP 117/77
[2022-05-25 22:00] VITALS: BP 117/77
[2022-05-25] MEDS: MORPHINE 2 MG/ML 1ML VIAL IV PRN (22:46)
[2022-05-26] MEDS: KETOROLAC 30 MG/ML 1ML VIAL IV PRN ×2 (02:45→08:45)
[2022-05-26 04:51] VITALS: BP 127/76
[2022-05-26] MEDS: ACETAMINOPHEN 500 MG TAB PO SCH ×3 (05:37→12:35)
[2022-05-26 06:13] LABS: HEMOGLOBIN 10.8 g/dl (13.5-17.5); MEAN CORPUSCULAR HEMOGLOBIN 29.8 pg (27.0-33.0); MEAN CORPUSCULAR HGB CONC 33.8 g/dl (32.0-36.5); MEAN CORPUSCULAR VOLUME 88.4 fl (80.0-96.0); PLATELET COUNT, AUTOMATED 199 10^3/uL (150-450); RED BLOOD COUNT 3.62 10^6/uL (4.30-6.10)
[2022-05-26 06:44] LABS: BLOOD UREA NITROGEN 10 MG/DL (9-23); CALCIUM LEVEL 7.9 MG/DL (8.3-10.6); CARBON DIOXIDE LEVEL 25 MMOL/L (20-31); CHLORIDE LEVEL 100 MMOL/L (98-107); CREATININE FOR GFR 0.62 MG/DL (0.70-1.30); GLOMERULAR FILTRATION RATE > 60.0 (>49); GLUCOSE, FASTING 89 MG/DL (74-106); SODIUM LEVEL 131 MMOL/L (136-145)
[2022-05-26] MEDS: FLUTICASONE HFA 220 MCG 12 GM INHALER (FLOVENT) INH SCH (08:00)
[2022-05-26 08:07] LABS: MAGNESIUM LEVEL 1.8 MG/DL (1.8-2.4)
[2022-05-26] MEDS: LIDOCAINE 5% (LIDODERM) PATCH TD SCH (08:44)
[2022-05-26] MEDS: ENOXAPARIN 40MG/0.4ML SYRINGE (J1650 PER 10MG) SC SCH (08:45)
[2022-05-26 08:46] VITALS: BP 126/76
[2022-05-26] MEDS: CETIRIZINE (ZyrTEC) 10 MG TAB PO SCH (08:46)
[2022-05-26] MEDS: ATORVASTATIN 20 MG TAB PO SCH (08:46)
[2022-05-26] MEDS: FUROSEMIDE 40 MG TAB PO SCH (08:46)
[2022-05-26] MEDS: FOLIC ACID 1MG TAB PO SCH (08:46)
[2022-05-26] MEDS: FINASTERIDE 5MG TAB PO SCH (08:46)
[2022-05-26] MEDS: amLODIPine 5 MG TAB PO SCH (08:46)
[2022-05-26] MEDS: THIAMINE 100 MG TAB PO SCH (08:49)
[2022-05-26] MEDS: SUCRALFATE 1 GM TAB PO SCH ×2 (08:49→16:00)
[2022-05-26] MEDS: MULTIVITAMINS/MINERALS THERAP 1 TAB PO SCH (08:49)
[2022-05-26] MEDS: PANTOPRAZOLE 40MG TAB (PROTONIX) PO SCH (08:49)
[2022-05-26 09:00] VITALS: BP 126/76
[2022-05-26] MEDS ORDERED: MAGNESIUM OXIDE 400MG TAB (MAG-OX) PO SCH (09:00)
[2022-05-26 11:02] VITALS: BP 118/72
[2022-05-26 14:00] VITALS: BP_SYST 117; BP_SYST 126; BP_DIAS 71; BP_DIAS 88
[2022-05-26] MEDS ORDERED: OXYC-517 PO (15:17)
[2022-05-26] MEDS ORDERED: ACET-897 PO (15:17)
== END 2022-05-26 17:15 | disposition home health service (06) | DRG 349 ==
LOC: EDBD 16:43 → M ED 18:44 → M ED INP 19:55 → M MS5PR 22:07
PROVIDERS: ADMIT Internal Medicine; ATTEND Internal Medicine Nephrology
DX: M97.02XA Periprosthetic fracture around internal prosthetic left hip joint, initial encounter (principal); I11.0 Hypertensive heart disease with heart failure; I50.32 Chronic diastolic (congestive) heart failure; E87.1 Hypo-osmolality and hyponatremia; E83.42 Hypomagnesemia; J44.9 Chronic obstructive pulmonary disease, unspecified; J45.909 Unspecified asthma, uncomplicated; I25.10 Atherosclerotic heart disease of native coronary artery without angina pectoris; E78.5 Hyperlipidemia, unspecified; F10.10 Alcohol abuse, uncomplicated; K21.9 Gastro-esophageal reflux disease without esophagitis; F17.200 Nicotine dependence, unspecified, uncomplicated; Z96.642 Presence of left artificial hip joint; Z79.82 Long term (current) use of aspirin; Z79.899 Other long term (current) drug therapy; Y83.1 Surgical operation with implant of artificial internal device as the cause of abnormal reaction of the patient, or of later complication, without mention of misadventure at the time of the procedure; Z79.52 Long term (current) use of systemic steroids

== ENCOUNTER → 2022-06-08 | Outpatient (CLI) | payer OTHER ==
[~2022-06-08] MED LIST changes: +ACET-897 PO; +ASPI81TA26 PO; +OXYC-517 PO; +PANT-23 PO; +THERTAB52 PO
== END ==
LOC: M SOG 09:33
PROVIDERS: ATTEND Orthopaedic Surgery Adult Reconstructive Orthopaedic Surgery
DX: S72.112A Displaced fracture of greater trochanter of left femur, initial encounter for closed fracture (principal); Z96.642 Presence of left artificial hip joint

== ENCOUNTER → 2022-07-20 | Outpatient (CLI) | payer OTHER | LOC: M SOG 08:02 | PROVIDERS: ATTEND Orthopaedic Surgery Adult Reconstructive Orthopaedic Surgery | DX: S72.112D Displaced fracture of greater trochanter of left femur, subsequent encounter for closed fracture with routine healing (principal); Z96.642 Presence of left artificial hip joint ==

== ENCOUNTER 2023-07-26 01:28 | Inpatient (IN) | payer MEDICARE, OTHER, SELFPAY ==
[2023-07-26] VITALS (7 sets, daily range): BP systolic 110–150; BP diastolic 62–116; TEMP 95.4–97.9; O2SAT 94–96
[~2023-07-26] VITALS: Ht 185.4 cm; Wt 68.2 kg
[~2023-07-26 01:28] MED LIST changes: +HYDR-161 PO; -HYDR10TAB PO; -POTA10CA33 PO; +POTA10CA60 PO
[2023-07-26 04:30] LABS: BASO % 0.4 % (0.0-1.0); EOS % 0.4 % (0.0-3.0); HEMATOCRIT 38.4 % (42.0-52.0); HEMOGLOBIN 13.7 g/dl (13.5-17.5); LYMPH # 1.4 10^3/uL (1.5-5.0); LYMPH % 13.2 % (24.0-44.0); MEAN CORPUSCULAR HEMOGLOBIN 31.1 pg (27.0-33.0); MEAN CORPUSCULAR HGB CONC 35.7 g/dl (32.0-36.5); MEAN CORPUSCULAR VOLUME 87.1 fl (80.0-96.0); MONO % 9.5 % (2.0-8.0); NEUTROPHILS % 75.7 % (36.0-66.0); PLATELET COUNT, AUTOMATED 296 10^3/uL (150-450); RED BLOOD COUNT 4.41 10^6/uL (4.30-6.10); WHITE BLOOD COUNT 10.5 10^3/uL (4.0-10.0)
[2023-07-26] MEDS: NS 1,000 ML IV ONE (04:41)
[2023-07-26 04:55] LABS: ETHYL ALCOHOL (ETHANOL) 0.116 % (0.000-0.010)
[2023-07-26 04:56] LABS: ALBUMIN 3.6 G/DL (3.2-5.2); ALKALINE PHOSPHATASE 134 U/L (46-116); ALT/SGPT 15 U/L (7.0-40); AST/SGOT 24 U/L (<34); BILIRUBIN,TOTAL 0.4 MG/DL (0.3-1.2); BLOOD UREA NITROGEN 6 MG/DL (9-23); CALCIUM LEVEL 8.5 MG/DL (8.3-10.6); CARBON DIOXIDE LEVEL 25 MMOL/L (20-31); CHLORIDE LEVEL 92 MMOL/L (98-107); CREATININE FOR GFR 0.57 MG/DL (0.70-1.30); GLOMERULAR FILTRATION RATE > 60.0 (>49); GLUCOSE, FASTING 97 MG/DL (74-106); INR 1.11; POTASSIUM SERUM 4.6 MMOL/L (3.5-5.1); SODIUM LEVEL 122 MMOL/L (136-145)
[2023-07-26] MEDS: MORPHINE 4 MG/ML 1ML VIAL IV ONE ×2 (07:30→15:05)
[2023-07-26] MEDS: ONDANSETRON 4MG 2ML VIAL IV ONE (07:31)
[2023-07-26] MEDS ORDERED: LORazepam 2 MG TAB PO PRN ×3 (07:35→11:50)
[2023-07-26] MEDS: THIAMINE 100 MG TAB PO SCH ×2 (09:00)
[2023-07-26] MEDS ORDERED: FOLIC ACID 1MG TAB PO SCH (09:00)
[2023-07-26] MEDS ORDERED: MULTIVITAMINS/MINERALS THERAP 1 TAB PO SCH (09:00)
[2023-07-26] MEDS ORDERED: THIAMINE 100 MG TAB PO SCH ×2 (09:00→21:00)
[2023-07-26] MEDS: HYDROMORPHONE HCL 0.5 MG/ 0.5 ML SYRINGE IV PRN (10:06)
[2023-07-26] MEDS ORDERED: PRED25TA PO (11:16)
[2023-07-26] MEDS ORDERED: OMEP-173 PO (11:16)
[2023-07-26] MEDS ORDERED: ASPI81CH48 PO (11:16)
[2023-07-26] MEDS ORDERED: CALC1CAP34 PO (11:16)
[2023-07-26] MEDS ORDERED: POTA-136 PO (11:16)
[2023-07-26] MEDS ORDERED: CYAN100049 PO (11:16)
[2023-07-26] MEDS ORDERED: HOME MED LIST COMPLETE! XX SCH (11:20)
[2023-07-26] MEDS ORDERED: OXAZEPAM 10MG CAP PO PRN (11:50)
[2023-07-26] MEDS: FOLIC ACID 1MG TAB PO SCH (12:09)
[2023-07-26] MEDS: CYCLOBENZAPRINE 10MG TABLET PO ONE (12:09)
[2023-07-26] MEDS: MULTIVITAMINS/MINERALS THERAP 1 TAB PO SCH (12:09)
[2023-07-26] MEDS: KETOROLAC 30 MG/ML 1ML VIAL IV ONE (12:11)
[2023-07-26] MEDS: PERCOCET 5MG/325MG TAB PO ONE (12:11)
[2023-07-26] MEDS ORDERED: CYCLOBENZAPRINE 10MG TABLET PO PRN (12:50)
[2023-07-26] MEDS ORDERED: MORPHINE 10 MG/ML 1ML VIAL IV PRN (12:50)
[2023-07-26] MEDS ORDERED: NALOXONE INJ 0.4MG/1ML VIAL IV PRN (12:50)
[2023-07-26 13:31] LABS: BLOOD UREA NITROGEN 5 MG/DL (9-23); CALCIUM LEVEL 8.4 MG/DL (8.3-10.6); CARBON DIOXIDE LEVEL 28 MMOL/L (20-31); CHLORIDE LEVEL 94 MMOL/L (98-107); CREATININE FOR GFR 0.59 MG/DL (0.70-1.30); GLOMERULAR FILTRATION RATE > 60.0 (>49); GLUCOSE, FASTING 95 MG/DL (74-106); POTASSIUM SERUM 4.8 MMOL/L (3.5-5.1); SODIUM LEVEL 127 MMOL/L (136-145)
[2023-07-26] MEDS: cloNIDine 0.2 MG TAB PO ONE (15:05)
[2023-07-26] MEDS: amLODIPine 5 MG TAB PO ONE (15:05)
[2023-07-26] MEDS: PERCOCET 5MG/325MG TAB PO PRN (16:35)
[2023-07-26] MEDS: ENOXAPARIN 40MG/0.4ML SYRINGE (J1650 PER 10MG) SC ONE (16:35)
[2023-07-26] MEDS: cloNIDine 0.1MG TABLET PO SCH (17:55)
[2023-07-26 19:31] LABS: BLOOD UREA NITROGEN 13 MG/DL (9-23); CALCIUM LEVEL 8.4 MG/DL (8.3-10.6); CARBON DIOXIDE LEVEL 28 MMOL/L (20-31); CHLORIDE LEVEL 93 MMOL/L (98-107); CREATININE FOR GFR 0.83 MG/DL (0.70-1.30); GLOMERULAR FILTRATION RATE > 60.0 (>49); GLUCOSE, FASTING 111 MG/DL (74-106); POTASSIUM SERUM 4.2 MMOL/L (3.5-5.1); SODIUM LEVEL 126 MMOL/L (136-145)
[2023-07-26] MEDS: amLODIPine 5 MG TAB PO SCH (20:59)
[2023-07-27] VITALS: BP 130/90
[2023-07-27 01:06] LABS: BLOOD UREA NITROGEN 15 MG/DL (9-23); CALCIUM LEVEL 8.1 MG/DL (8.3-10.6); CARBON DIOXIDE LEVEL 28 MMOL/L (20-31); CHLORIDE LEVEL 96 MMOL/L (98-107); CREATININE FOR GFR 0.88 MG/DL (0.70-1.30); GLOMERULAR FILTRATION RATE > 60.0 (>49); GLUCOSE, FASTING 103 MG/DL (74-106); POTASSIUM SERUM 4.5 MMOL/L (3.5-5.1); SODIUM LEVEL 127 MMOL/L (136-145)
[2023-07-27] MEDS: PERCOCET 5MG/325MG TAB PO PRN (02:29)
[2023-07-27 06:19] VITALS: BP 130/80
[2023-07-27 06:32] VITALS: BP 130/80; TEMP 96.8; O2SAT 97
[2023-07-27 07:15] LABS: HEMATOCRIT 38.5 % (42.0-52.0); HEMOGLOBIN 13.3 g/dl (13.5-17.5); MEAN CORPUSCULAR HEMOGLOBIN 30.7 pg (27.0-33.0); MEAN CORPUSCULAR HGB CONC 34.5 g/dl (32.0-36.5); MEAN CORPUSCULAR VOLUME 88.9 fl (80.0-96.0); PLATELET COUNT, AUTOMATED 288 10^3/uL (150-450); RED BLOOD COUNT 4.33 10^6/uL (4.30-6.10); WHITE BLOOD COUNT 6.7 10^3/uL (4.0-10.0)
[2023-07-27 07:44] LABS: BLOOD UREA NITROGEN 14 MG/DL (9-23); CALCIUM LEVEL 8.3 MG/DL (8.3-10.6); CARBON DIOXIDE LEVEL 29 MMOL/L (20-31); CHLORIDE LEVEL 92 MMOL/L (98-107); CREATININE FOR GFR 0.76 MG/DL (0.70-1.30); GLOMERULAR FILTRATION RATE > 60.0 (>49); GLUCOSE, FASTING 89 MG/DL (74-106); POTASSIUM SERUM 4.3 MMOL/L (3.5-5.1); SODIUM LEVEL 125 MMOL/L (136-145)
[2023-07-27] MEDS ORDERED: VERQUVO 2.5 MG PO SCH (09:00)
[2023-07-27] MEDS ORDERED: FOLIC ACID 1MG TAB PO SCH (09:00)
[2023-07-27] MEDS ORDERED: MULTIVITAMINS/MINERALS THERAP 1 TAB PO SCH (09:00)
[2023-07-27] MEDS: ENOXAPARIN 40MG/0.4ML SYRINGE (J1650 PER 10MG) SC SCH (09:20)
[2023-07-27] MEDS: CYANOCOBALAMIN 500 MCG TAB PO SCH (10:35)
[2023-07-27] MEDS: SUCRALFATE 1 GM TAB PO SCH (10:35)
[2023-07-27] MEDS: OMEPRAZOLE 20MG CAP PO SCH (10:36)
[2023-07-27] MEDS: POTASSIUM CHLORIDE 10MEQ SR TABLET PO SCH (10:36)
[2023-07-27] MEDS: SODIUM CHLORIDE 1 GM TAB PO SCH ×2 (10:45→21:07)
[2023-07-27 12:30] LABS: BLOOD UREA NITROGEN 10 MG/DL (9-23); CARBON DIOXIDE LEVEL 27 MMOL/L (20-31); CHLORIDE LEVEL 94 MMOL/L (98-107); GLOMERULAR FILTRATION RATE > 60.0 (>49); GLUCOSE, FASTING 94 MG/DL (74-106); POTASSIUM SERUM 4.8 MMOL/L (3.5-5.1); SODIUM LEVEL 124 MMOL/L (136-145)
[2023-07-27 14:00] VITALS: BP 122/80
[2023-07-27] MEDS: OYSTER SHELL CALCIUM 500 MG TAB PO SCH (17:29)
[2023-07-27 19:48] LABS: BLOOD UREA NITROGEN 10 MG/DL (9-23); CALCIUM LEVEL 8.2 MG/DL (8.3-10.6); CARBON DIOXIDE LEVEL 24 MMOL/L (20-31); CHLORIDE LEVEL 95 MMOL/L (98-107); CREATININE FOR GFR 0.58 MG/DL (0.70-1.30); GLOMERULAR FILTRATION RATE > 60.0 (>49); GLUCOSE, FASTING 119 MG/DL (74-106); POTASSIUM SERUM 4.1 MMOL/L (3.5-5.1); SODIUM LEVEL 123 MMOL/L (136-145)
[2023-07-27] MEDS: ASPIRIN 81MG CHEW TABLET PO SCH (21:07)
[2023-07-27] MEDS: TERAZOSIN 1 MG CAP PO SCH (21:07)
[2023-07-27 21:20] VITALS: BP 113/87
[2023-07-27 21:41] VITALS: BP 113/87; TEMP 96.8; O2SAT 98
[2023-07-28 00:32] VITALS: BP 115/87
[2023-07-28 05:38] VITALS: BP 129/88
[2023-07-28 06:00] VITALS: BP 129/88; TEMP 97.1; O2SAT 96
[2023-07-28 07:38] LABS: HEMATOCRIT 36.1 % (42.0-52.0); HEMOGLOBIN 12.6 g/dl (13.5-17.5); MEAN CORPUSCULAR HEMOGLOBIN 31.3 pg (27.0-33.0); MEAN CORPUSCULAR HGB CONC 34.9 g/dl (32.0-36.5); MEAN CORPUSCULAR VOLUME 89.8 fl (80.0-96.0); PLATELET COUNT, AUTOMATED 271 10^3/uL (150-450); RED BLOOD COUNT 4.02 10^6/uL (4.30-6.10); WHITE BLOOD COUNT 6.5 10^3/uL (4.0-10.0)
[2023-07-28 07:58] LABS: BLOOD UREA NITROGEN 7 MG/DL (9-23); CALCIUM LEVEL 8.2 MG/DL (8.3-10.6); CARBON DIOXIDE LEVEL 28 MMOL/L (20-31); CHLORIDE LEVEL 99 MMOL/L (98-107); CREATININE FOR GFR 0.65 MG/DL (0.70-1.30); GLOMERULAR FILTRATION RATE > 60.0 (>49); GLUCOSE, FASTING 93 MG/DL (74-106); POTASSIUM SERUM 4.6 MMOL/L (3.5-5.1); SODIUM LEVEL 129 MMOL/L (136-145)
[2023-07-28 14:00] VITALS: BP_SYST 115; BP_SYST 130; BP_DIAS 68; BP_DIAS 80; TEMP 97.3; O2SAT 97
[2023-07-28 18:44] LABS: BLOOD UREA NITROGEN 10 MG/DL (9-23); CARBON DIOXIDE LEVEL 27 MMOL/L (20-31); CHLORIDE LEVEL 95 MMOL/L (98-107); CREATININE FOR GFR 0.76 MG/DL (0.70-1.30); GLOMERULAR FILTRATION RATE > 60.0 (>49); GLUCOSE, FASTING 97 MG/DL (74-106); POTASSIUM SERUM 4.3 MMOL/L (3.5-5.1); SODIUM LEVEL 124 MMOL/L (136-145)
[2023-07-28 21:13] VITALS: BP 109/79; TEMP 97.5; O2SAT 97
[2023-07-28 22:00] VITALS: BP 130/70
[2023-07-29 06:01] VITALS: BP 119/80; TEMP 97.3; O2SAT 97
[2023-07-29 07:37] LABS: MEAN CORPUSCULAR HEMOGLOBIN 30.2 pg (27.0-33.0); MEAN CORPUSCULAR HGB CONC 33.3 g/dl (32.0-36.5); MEAN CORPUSCULAR VOLUME 90.5 fl (80.0-96.0); PLATELET COUNT, AUTOMATED 285 10^3/uL (150-450); RED BLOOD COUNT 3.98 10^6/uL (4.30-6.10); WHITE BLOOD COUNT 7.4 10^3/uL (4.0-10.0)
[2023-07-29 08:07] LABS: BLOOD UREA NITROGEN 8 MG/DL (9-23); CALCIUM LEVEL 8.2 MG/DL (8.3-10.6); CARBON DIOXIDE LEVEL 29 MMOL/L (20-31); CHLORIDE LEVEL 98 MMOL/L (98-107); CREATININE FOR GFR 0.67 MG/DL (0.70-1.30); GLOMERULAR FILTRATION RATE > 60.0 (>49); GLUCOSE, FASTING 92 MG/DL (74-106); POTASSIUM SERUM 4.6 MMOL/L (3.5-5.1); SODIUM LEVEL 129 MMOL/L (136-145)
[2023-07-29 09:11] LABS: CALCIUM LEVEL 8.5 MG/DL (8.3-10.6)
[2023-07-29 14:00] VITALS: BP 129/54; TEMP 97.9; O2SAT 97
[2023-07-29 14:05] VITALS: BP 129/54
[2023-07-29 16:27] VITALS: BP 132/84
[2023-07-29 19:15] LABS: BLOOD UREA NITROGEN 7 MG/DL (9-23); CALCIUM LEVEL 8.4 MG/DL (8.3-10.6); CARBON DIOXIDE LEVEL 25 MMOL/L (20-31); CHLORIDE LEVEL 96 MMOL/L (98-107); GLOMERULAR FILTRATION RATE > 60.0 (>49); GLUCOSE, FASTING 124 MG/DL (74-106); POTASSIUM SERUM 4.2 MMOL/L (3.5-5.1); SODIUM LEVEL 125 MMOL/L (136-145)
[2023-07-29 21:11] VITALS: BP 134/79; TEMP 97.5; O2SAT 94
[2023-07-29 22:00] VITALS: BP 134/66
[2023-07-30 06:32] LABS: HEMATOCRIT 36.3 % (42.0-52.0); HEMOGLOBIN 12.3 g/dl (13.5-17.5); MEAN CORPUSCULAR HEMOGLOBIN 30.4 pg (27.0-33.0); MEAN CORPUSCULAR HGB CONC 33.9 g/dl (32.0-36.5); MEAN CORPUSCULAR VOLUME 89.6 fl (80.0-96.0); PLATELET COUNT, AUTOMATED 283 10^3/uL (150-450); RED BLOOD COUNT 4.05 10^6/uL (4.30-6.10); WHITE BLOOD COUNT 7.8 10^3/uL (4.0-10.0)
[2023-07-30 06:59] LABS: BLOOD UREA NITROGEN 7 MG/DL (9-23); CALCIUM LEVEL 8.5 MG/DL (8.3-10.6); CARBON DIOXIDE LEVEL 25 MMOL/L (20-31); CHLORIDE LEVEL 99 MMOL/L (98-107); CREATININE FOR GFR 0.61 MG/DL (0.70-1.30); GLOMERULAR FILTRATION RATE > 60.0 (>49); GLUCOSE, FASTING 99 MG/DL (74-106); POTASSIUM SERUM 4.3 MMOL/L (3.5-5.1); SODIUM LEVEL 128 MMOL/L (136-145)
[2023-07-30] MEDS: MIRALAX *UNIT DOSE* 17GM PACKET PO SCH (09:00)
[2023-07-30] MEDS: METAMUCIL (PSYLLIUM) PACKET PO SCH (09:00)
[2023-07-30] MEDS: SENNA 8.6 MG TAB (SENOKOT) PO SCH (12:00)
[2023-07-30 14:00] VITALS: BP 110/76; TEMP 97.3; O2SAT 98
[2023-07-30] MEDS: FUROSEMIDE 40 MG TAB PO SCH (17:25)
[2023-07-30 17:46] VITALS: BP 108/74
[2023-07-30 18:35] LABS: BLOOD UREA NITROGEN 10 MG/DL (9-23); CALCIUM LEVEL 8.5 MG/DL (8.3-10.6); CARBON DIOXIDE LEVEL 26 MMOL/L (20-31); CHLORIDE LEVEL 99 MMOL/L (98-107); CREATININE FOR GFR 0.69 MG/DL (0.70-1.30); GLOMERULAR FILTRATION RATE > 60.0 (>49); GLUCOSE, FASTING 117 MG/DL (74-106); POTASSIUM SERUM 4.5 MMOL/L (3.5-5.1); SODIUM LEVEL 128 MMOL/L (136-145)
[2023-07-30 21:43] VITALS: BP 130/77; TEMP 97.3; O2SAT 96
[2023-07-30 23:38] VITALS: BP 126/75
[2023-07-31 06:56] VITALS: BP 139/92; TEMP 97.7; O2SAT 96
[2023-07-31 07:58] LABS: BLOOD UREA NITROGEN 9 MG/DL (9-23); CALCIUM LEVEL 8.3 MG/DL (8.3-10.6); CARBON DIOXIDE LEVEL 26 MMOL/L (20-31); CHLORIDE LEVEL 100 MMOL/L (98-107); GLOMERULAR FILTRATION RATE > 60.0 (>49); GLUCOSE, FASTING 94 MG/DL (74-106); POTASSIUM SERUM 4.2 MMOL/L (3.5-5.1); SODIUM LEVEL 131 MMOL/L (136-145)
[2023-07-31 08:21] LABS: WHITE BLOOD COUNT 8.1 10^3/uL (4.0-10.0)
[2023-07-31 08:22] LABS: HEMATOCRIT 36.3 % (42.0-52.0); HEMOGLOBIN 12.4 g/dl (13.5-17.5); MEAN CORPUSCULAR HEMOGLOBIN 30.8 pg (27.0-33.0); MEAN CORPUSCULAR HGB CONC 34.2 g/dl (32.0-36.5); MEAN CORPUSCULAR VOLUME 90.3 fl (80.0-96.0); PLATELET COUNT, AUTOMATED 314 10^3/uL (150-450); RED BLOOD COUNT 4.02 10^6/uL (4.30-6.10)
[2023-07-31] MEDS: FOLIC ACID 1MG TAB PO SCH (09:30)
[2023-07-31 14:00] VITALS: BP 123/79; TEMP 97.9; O2SAT 95
[2023-07-31 21:00] VITALS: BP 146/91; TEMP 98.1; O2SAT 98
[2023-07-31 23:59] VITALS: BP 116/74
[2023-08-01 05:00] VITALS: BP 119/76; TEMP 98.1; O2SAT 98
[2023-08-01 06:25] VITALS: BP 126/81; TEMP 97.7; O2SAT 97
[2023-08-01 07:36] LABS: BLOOD UREA NITROGEN 9 MG/DL (9-23); CALCIUM LEVEL 8.2 MG/DL (8.3-10.6); CARBON DIOXIDE LEVEL 25 MMOL/L (20-31); CHLORIDE LEVEL 100 MMOL/L (98-107); CREATININE FOR GFR 0.67 MG/DL (0.70-1.30); GLOMERULAR FILTRATION RATE > 60.0 (>49); GLUCOSE, FASTING 104 MG/DL (74-106); POTASSIUM SERUM 4.2 MMOL/L (3.5-5.1); SODIUM LEVEL 130 MMOL/L (136-145)
[2023-08-01 14:00] VITALS: BP 125/84; TEMP 97.7; O2SAT 96
[2023-08-01 19:58] VITALS: BP 125/81; TEMP 98.1; O2SAT 100
[2023-08-01 23:17] VITALS: BP 127/81
[2023-08-02 05:27] VITALS: BP 124/78
[2023-08-02 06:34] VITALS: TEMP 97.7; O2SAT 97
[2023-08-02 06:44] LABS: BLOOD UREA NITROGEN 9 MG/DL (9-23); CALCIUM LEVEL 8.3 MG/DL (8.3-10.6); CARBON DIOXIDE LEVEL 25 MMOL/L (20-31); CHLORIDE LEVEL 99 MMOL/L (98-107); CREATININE FOR GFR 0.76 MG/DL (0.70-1.30); GLOMERULAR FILTRATION RATE > 60.0 (>49); GLUCOSE, FASTING 98 MG/DL (74-106); POTASSIUM SERUM 4.4 MMOL/L (3.5-5.1); SODIUM LEVEL 131 MMOL/L (136-145)
[2023-08-02 09:16] VITALS: BP 123/78
[2023-08-02 12:00] VITALS: BP 127/80
[2023-08-02 12:27] VITALS: BP 127/80
[2023-08-02] MEDS ORDERED: SODI1TAB12 PO (13:45)
[2023-08-02] MEDS ORDERED: CLONI1TA PO (13:56)
[2023-08-02] MEDS ORDERED: AMLO1TAB24 PO (13:56)
== END 2023-08-02 15:25 | disposition home or self-care (01) | DRG 563 ==
LOC: M ED 01:28 → M ED INP 11:26 → M MS5PR 14:55
PROVIDERS: ADMIT General Practice; ATTEND Internal Medicine
DX: S82.121A Displaced fracture of lateral condyle of right tibia, initial encounter for closed fracture (principal); I50.32 Chronic diastolic (congestive) heart failure; E87.1 Hypo-osmolality and hyponatremia; R64 Cachexia; J96.11 Chronic respiratory failure with hypoxia; W00.0XXA Fall on same level due to ice and snow, initial encounter; Y92.018 Other place in single-family (private) house as the place of occurrence of the external cause; Y93.89 Activity, other specified; Y99.8 Other external cause status; I25.10 Atherosclerotic heart disease of native coronary artery without angina pectoris; I25.2 Old myocardial infarction; I11.0 Hypertensive heart disease with heart failure; I16.0 Hypertensive urgency; F10.20 Alcohol dependence, uncomplicated; J44.9 Chronic obstructive pulmonary disease, unspecified; K21.9 Gastro-esophageal reflux disease without esophagitis; E78.5 Hyperlipidemia, unspecified; N40.0 Benign prostatic hyperplasia without lower urinary tract symptoms; Z95.5 Presence of coronary angioplasty implant and graft; Z96.642 Presence of left artificial hip joint; F17.200 Nicotine dependence, unspecified, uncomplicated; Z79.82 Long term (current) use of aspirin; Z79.899 Other long term (current) drug therapy; E83.51 Hypocalcemia

== ENCOUNTER → 2023-08-13 | Outpatient (CLI) | payer MEDICARE ==
[~2023-08-13] MED LIST changes: +ASPI81CH48 PO; +CALC1CAP34 PO; +CLONI1TA PO; +CYAN100049 PO; +OMEP-173 PO; +POTA-136 PO; +PRED25TA PO; +SODI1TAB12 PO
== END ==
LOC: M SOG 14:19
PROVIDERS: ATTEND Physician Assistant
DX: S82.101A Unspecified fracture of upper end of right tibia, initial encounter for closed fracture (principal); Y93.9 Activity, unspecified; Y92.9 Unspecified place or not applicable

== ENCOUNTER → 2023-08-20 | Outpatient (CLI) | payer MEDICARE | LOC: M PLAIMG 12:26 | PROVIDERS: ATTEND Physician Assistant | DX: S82.101A Unspecified fracture of upper end of right tibia, initial encounter for closed fracture (principal); M25.40 Effusion, unspecified joint ==

== ENCOUNTER → 2023-09-09 | Outpatient (CLI) | payer MEDICARE ==
[~2023-09-09] MED LIST changes: -POTA10CA60 PO; +POTA10CA70 PO
== END ==
LOC: M SOG 15:23
PROVIDERS: ATTEND Physician Assistant
DX: S82.109A Unspecified fracture of upper end of unspecified tibia, initial encounter for closed fracture (principal); Z53.9 Procedure and treatment not carried out, unspecified reason

== ENCOUNTER → 2023-09-09 | Outpatient (CLI) | payer MEDICARE | LOC: M SOG 12:56 | PROVIDERS: ATTEND Physician Assistant | DX: S82.109A Unspecified fracture of upper end of unspecified tibia, initial encounter for closed fracture (principal); M25.461 Effusion, right knee; Y92.9 Unspecified place or not applicable; Y93.9 Activity, unspecified; Y99.8 Other external cause status ==

== ENCOUNTER → 2023-10-11 | Outpatient (CLI) | payer MEDICARE | LOC: M SOG 07:52 | PROVIDERS: ATTEND Physician Assistant | DX: S82.121D Displaced fracture of lateral condyle of right tibia, subsequent encounter for closed fracture with routine healing (principal) ==

== ENCOUNTER → 2024-02-16 | Outpatient (CLI) | payer MEDICARE, MEDICAID ==
[2024-02-16 14:40] LABS: BLOOD UREA NITROGEN 7 MG/DL (9-23); CARBON DIOXIDE LEVEL 27 MMOL/L (20-31); CHLORIDE LEVEL 99 MMOL/L (98-107); CREATININE FOR GFR 0.67 MG/DL (0.70-1.30); GLOMERULAR FILTRATION RATE > 60.0 (>49); GLUCOSE, FASTING 90 MG/DL (74-106); POTASSIUM SERUM 4.4 MMOL/L (3.5-5.1); SODIUM LEVEL 131 MMOL/L (136-145)
== END ==
LOC: M WUC 10:19
PROVIDERS: ATTEND Otolaryngology
DX: D37.05 Neoplasm of uncertain behavior of pharynx (principal)

== ENCOUNTER → 2024-02-17 | Outpatient (CLI) | payer MEDICARE, MEDICAID ==
[~2024-02-17] MED LIST changes: +ISOVUE-370 76% 100ML VIAL As Ordered ONE
== END ==
LOC: M RAD 08:03
PROVIDERS: ATTEND Otolaryngology
DX: D37.05 Neoplasm of uncertain behavior of pharynx (principal); R93.7 Abnormal findings on diagnostic imaging of other parts of musculoskeletal system
CPT/HCPCS: 70491; Q9967

== ENCOUNTER → 2024-02-18 | Outpatient (CLI) | payer MEDICARE, MEDICAID ==
[~2024-02-18] MED LIST changes: -ISOVUE-370 76% 100ML VIAL As Ordered ONE
[2024-02-18 11:15] LABS: BASO # 0.1 10^3/uL (0.0-0.2); EOS # 0.2 10^3/uL (0.0-0.5); EOS % 1.8 % (0.0-3.0); HEMATOCRIT 36.7 % (42.0-52.0); HEMOGLOBIN 12.6 g/dl (13.5-17.5); LYMPH # 1.5 10^3/uL (1.5-5.0); LYMPH % 18.2 % (24.0-44.0); MEAN CORPUSCULAR HEMOGLOBIN 30.7 pg (27.0-33.0); MEAN CORPUSCULAR HGB CONC 34.3 g/dl (32.0-36.5); MEAN CORPUSCULAR VOLUME 89.5 fl (80.0-96.0); MONO # 1.1 10^3/uL (0.0-0.8); MONO % 13.4 % (2.0-8.0); NEUTROPHILS # 5.4 10^3/uL (1.5-8.5); NEUTROPHILS % 65.1 % (36.0-66.0); PLATELET COUNT, AUTOMATED 350 10^3/uL (150-450); WHITE BLOOD COUNT 8.3 10^3/uL (4.0-10.0)
[2024-02-18 11:36] LABS: INR 1.18; PARTIAL THROMBOPLASTIN TIME 29.3 SECONDS (24.8-34.2); PROTHROMBIN TIME 14.7 SECONDS (12.5-14.5)
== END ==
LOC: M RAD 10:21
PROVIDERS: ATTEND Otolaryngology
DX: Z01.812 Encounter for preprocedural laboratory examination (principal); D37.05 Neoplasm of uncertain behavior of pharynx; I44.7 Left bundle-branch block, unspecified

== ENCOUNTER 2024-02-22 07:51 | Day surgery (SDC) | payer MEDICAID, MEDICARE ==
[~2024-02-22] VITALS: Ht 185.4 cm; Wt 65.9 kg
[~2024-02-22 07:51] MED LIST changes: +LIDOCAINE 2% 100MG/5ML SDV (FOR ANES.) As Ordered ONE; +ONDANSETRON 4MG 2ML VIAL As Ordered ONE; +ROCURONIUM BROMIDE 50MG/5ML VIAL As Ordered ONE; +SUGAMMADEX SODIUM 500 MG/5 ML VIAL (BRIDION) As Ordered ONE; +dexmedeTOMIDine (4MCG/ML)200MCG/50ML BTL (PRECEDEX) As Ordered ONE; +propofoL 200 MG/20 ML VIAL As Ordered ONE
[2024-02-22] MEDS ORDERED: LR 1,000 ML IV SCH ×2 (08:25→09:45)
[2024-02-22] MEDS ORDERED: CETACAINE SPRAY 5GM As Ordered ONE (08:29)
[2024-02-22] MEDS ORDERED: MIDAZOLAM INJ 2MG/2ML VIAL As Ordered ONE (08:34)
[2024-02-22] MEDS ORDERED: fentaNYL 100 MCG/2 ML INJECTION As Ordered ONE (08:34)
[2024-02-22] MEDS: CETACAINE SPRAY 5GM TOP ONE (08:38)
[2024-02-22] MEDS ORDERED: VASOPRESSIN INJ 20UNITS/ML 1ML VIAL As Ordered ONE (09:11)
[2024-02-22] MEDS: EPINEPHrine 1MG/ML INJ 30ML MD-VIAL As Ordered ONE (09:27)
[2024-02-22] MEDS: OXYMETAZOLINE 0.05% NASAL SPRAY (AFRIN) As Ordered ONE (09:27)
[2024-02-22] MEDS ORDERED: fentaNYL 100 MCG/2 ML INJECTION IV PRN (09:45)
[2024-02-22] MEDS ORDERED: ONDANSETRON 4MG 2ML VIAL IV PRN (09:45)
[2024-02-22] MEDS ORDERED: diphenhydrAMINE 50MG/ML VIAL IV PRN (09:45)
[2024-02-22] MEDS ORDERED: METOCLOPRAMIDE INJ 10MG/2ML VIAL IV PRN (09:45)
[2024-02-22 10:22] VITALS: BP 118/70; TEMP 97.5; O2SAT 92
[2024-02-22] MEDS: oxyCODONE 5MG TAB PO PRN (10:36)
== END 2024-02-22 10:56 | disposition home or self-care (01) ==
LOC: M SDC 07:51
PROVIDERS: ATTEND Otolaryngology
DX: C10.9 Malignant neoplasm of oropharynx, unspecified (principal); K14.8 Other diseases of tongue; I20.9 Angina pectoris, unspecified; I25.2 Old myocardial infarction; Z95.5 Presence of coronary angioplasty implant and graft; R06.83 Snoring; F17.210 Nicotine dependence, cigarettes, uncomplicated; Z79.899 Other long term (current) drug therapy
CPT/HCPCS: 31536; 43200; 88305; J0171; J1100; J2250; J2405; J2598; J3010

== ENCOUNTER → 2024-03-22 | Outpatient (CLI) | payer MEDICARE ==
[~2024-03-22] MED LIST changes: -CYCL5TAB PO; +CYCL5TAB4 PO; -LIDOCAINE 2% 100MG/5ML SDV (FOR ANES.) As Ordered ONE; -ONDANSETRON 4MG 2ML VIAL As Ordered ONE; -ROCURONIUM BROMIDE 50MG/5ML VIAL As Ordered ONE; -SUGAMMADEX SODIUM 500 MG/5 ML VIAL (BRIDION) As Ordered ONE; -dexmedeTOMIDine (4MCG/ML)200MCG/50ML BTL (PRECEDEX) As Ordered ONE; -propofoL 200 MG/20 ML VIAL As Ordered ONE
== END ==
LOC: M ONCR 07:41
PROVIDERS: ATTEND General Practice
DX: C09.0 Malignant neoplasm of tonsillar fossa (principal); R91.8 Other nonspecific abnormal finding of lung field; Z72.89 Other problems related to lifestyle; F17.210 Nicotine dependence, cigarettes, uncomplicated; Z79.83 Long term (current) use of bisphosphonates; Z79.891 Long term (current) use of opiate analgesic; Z79.82 Long term (current) use of aspirin; Z79.899 Other long term (current) drug therapy
CPT/HCPCS: 31575; 99406; G0463

== ENCOUNTER → 2024-04-04 | Outpatient (CLI) | payer MEDICARE ==
[~2024-04-04] MED LIST changes: +NAPR-885
== END ==
LOC: M ONCM 11:39
PROVIDERS: ATTEND Dietitian, Registered
DX: C05.1 Malignant neoplasm of soft palate (principal); C09.9 Malignant neoplasm of tonsil, unspecified; Z71.3 Dietary counseling and surveillance; Z68.1 Body mass index [BMI] 19.9 or less, adult

== ENCOUNTER 2024-04-13 08:07 | Outpatient (RCR) | payer MEDICARE, MEDICAID ==
[2024-04-13] MEDS ORDERED: HYDR-643 PO (08:51)
== END 2024-05-02 ==
LOC: M ONCR 08:07
PROVIDERS: ATTEND General Practice
DX: Z51.0 Encounter for antineoplastic radiation therapy (principal); C09.0 Malignant neoplasm of tonsillar fossa

== ENCOUNTER → 2024-04-18 | Outpatient (CLI) | payer MEDICARE, MEDICAID ==
[~2024-04-18] MED LIST changes: +HYDR-643 PO
== END ==
LOC: M PLARAD 12:06
PROVIDERS: ATTEND Otolaryngology
DX: C09.9 Malignant neoplasm of tonsil, unspecified (principal); Z53.9 Procedure and treatment not carried out, unspecified reason

== ENCOUNTER → 2024-05-02 | Outpatient (CLI) | payer MEDICARE, MEDICAID | LOC: M PLARAD 07:45 | PROVIDERS: ATTEND Otolaryngology | DX: C14.8 Malignant neoplasm of overlapping sites of lip, oral cavity and pharynx (principal) | CPT/HCPCS: 78815; A9552 ==

== ENCOUNTER → 2024-05-23 | Outpatient (CLI) | payer MEDICARE ==
[~2024-05-23] MED LIST changes: +ONDA-84 PO; +PROC10TA5 PO
== END ==
LOC: M ONCM 07:39
PROVIDERS: ATTEND Dietitian, Registered
DX: C09.0 Malignant neoplasm of tonsillar fossa (principal); C05.1 Malignant neoplasm of soft palate; Z71.3 Dietary counseling and surveillance; Z68.1 Body mass index [BMI] 19.9 or less, adult

== ENCOUNTER → 2024-06-02 | Outpatient (RCR) | payer MEDICARE, MEDICAID ==
[~2024-06-02] MED LIST changes: +FLOM0.4C39 PO; +FLUC100T3 PO; +LACT20EL PO; +LIDO15SO8 SS
== END ==
LOC: M ONCR 05-05 07:54
PROVIDERS: ATTEND General Practice
DX: Z51.0 Encounter for antineoplastic radiation therapy (principal); C09.0 Malignant neoplasm of tonsillar fossa

== ENCOUNTER → 2024-06-30 | Outpatient (RCR) | payer MEDICARE, MEDICAID ==
[2024-06-05 09:21] LABS: APPEARANCE, URINE CLEAR (CLEAR); BACTERIA, URINE AUTO NEGATIVE (NEGATIVE); BILIRUBIN, URINE AUTO NEGATIVE (NEGATIVE); BLOOD, URINE BLOOD NEGATIVE (NEGATIVE); COLOR, URINE YELLOW (YELLOW); GLUCOSE, URINE (UA) AUTO NEGATIVE (NEGATIVE); KETONE, URINE AUTO NEGATIVE (NEGATIVE); LEUKOCYTE ESTERASE, URINE AUTO NEGATIVE (NEGATIVE); NITRITE, URINE AUTO NEGATIVE (NEGATIVE); PROTEIN, URINE AUTO NEGATIVE (NEGATIVE); RBC, URINE AUTO 1 /HPF (0-3); SPECIFIC GRAVITY URINE AUTO 1.004 (1.002-1.035); SQUAMOUS EPITHELIAL CELL UR AU 0 /HPF (0-6); UROBILINOGEN, URINE AUTO 0.2 mg/dL (0.0-2.0); WBC, URINE AUTO 0 /HPF (0-3)
[~2024-06-30] MED LIST changes: +FENT1DIS14 TOP; +LIDO15SO8 PO; +MAGN400T2 PO; +XTAM13.5 PO; +[UNRECOGNIZED DRUG - CODE] PO
== END ==
LOC: M ONCR 06-05 08:00
PROVIDERS: ATTEND General Practice
DX: Z51.0 Encounter for antineoplastic radiation therapy (principal); C09.0 Malignant neoplasm of tonsillar fossa

== ENCOUNTER 2024-07-11 07:57 | Outpatient (RCR) | payer MEDICARE, MEDICAID ==
[2024-07-11] MEDS ORDERED: MORP30TASA PO (11:41)
[2024-07-18] MEDS ORDERED: MAGN400T2 PO (11:35)
[2024-07-19] MEDS ORDERED: NYST-38 PO (09:22)
== END 2024-07-31 ==
LOC: M ONCR 07:57
PROVIDERS: ATTEND General Practice
DX: Z51.0 Encounter for antineoplastic radiation therapy (principal); C09.0 Malignant neoplasm of tonsillar fossa

== ENCOUNTER → 2024-07-19 | Outpatient (CLI) | payer MEDICARE, MEDICAID ==
[~2024-07-19] MED LIST changes: +MORP30TASA PO; +NYST-38 PO
[2024-07-19 09:41] LABS: EOS # 0.1 10^3/uL (0.0-0.5); EOS % 1.7 % (0.0-3.0); HEMOGLOBIN 10.1 g/dl (13.5-17.5); LYMPH # 0.4 10^3/uL (1.5-5.0); LYMPH % 13.2 % (24.0-44.0); MEAN CORPUSCULAR HEMOGLOBIN 30.6 pg (27.0-33.0); MEAN CORPUSCULAR HGB CONC 33.7 g/dl (32.0-36.5); MEAN CORPUSCULAR VOLUME 90.9 fl (80.0-96.0); MONO # 0.8 10^3/uL (0.0-0.8); MONO % 26.4 % (2.0-8.0); NEUTROPHILS # 1.7 10^3/uL (1.5-8.5); PLATELET COUNT, AUTOMATED 214 10^3/uL (150-450)
[2024-07-19 10:20] LABS: ALBUMIN 2.8 G/DL (3.2-5.2); BILIRUBIN,TOTAL 0.5 MG/DL (0.3-1.2); CALCIUM LEVEL 8.5 MG/DL (8.3-10.6); CREATININE FOR GFR 1.32 MG/DL (0.70-1.30); GLOMERULAR FILTRATION RATE 58.1 (>49); MAGNESIUM LEVEL 2.4 MG/DL (1.8-2.4); POTASSIUM SERUM 5.1 MMOL/L (3.5-5.1); TOTAL PROTEIN 6.3 G/DL (5.7-8.2)
== END ==
LOC: M ONCR 08:59
PROVIDERS: ATTEND General Practice
DX: C05.1 Malignant neoplasm of soft palate (principal); B37.0 Candidal stomatitis
CPT/HCPCS: 80053; 83735; 85025; G0463

== ENCOUNTER 2024-08-03 12:00 | Emergency (ER) | payer MEDICARE, MEDICAID ==
[~2024-08-03] VITALS: Ht 185.4 cm; Wt 53.9 kg
[2024-08-03] MEDS: IBUPROFEN 800 MG TAB PO ONE (14:05)
[2024-08-03 14:41] VITALS: BP 100/72; O2SAT 95
[2024-08-03 15:33] VITALS: TEMP 98
== END 2024-08-03 15:37 | disposition home or self-care (01) ==
LOC: M ED 12:00
DX: S62.317A Displaced fracture of base of fifth metacarpal bone, left hand, initial encounter for closed fracture (principal); W01.0XXA Fall on same level from slipping, tripping and stumbling without subsequent striking against object, initial encounter; Y92.009 Unspecified place in unspecified non-institutional (private) residence as the place of occurrence of the external cause; Y93.9 Activity, unspecified; Y99.9 Unspecified external cause status; C06.9 Malignant neoplasm of mouth, unspecified; F17.200 Nicotine dependence, unspecified, uncomplicated; Z79.82 Long term (current) use of aspirin; Z79.899 Other long term (current) drug therapy

== ENCOUNTER → 2024-08-07 | Outpatient (CLI) | payer MEDICARE, MEDICAID | LOC: M PLAIMG 07:24 | PROVIDERS: ATTEND Physician Assistant | DX: S62.316A Displaced fracture of base of fifth metacarpal bone, right hand, initial encounter for closed fracture (principal) ==

== ENCOUNTER → 2024-08-09 | Outpatient (CLI) | payer MEDICARE, MEDICAID ==
[~2024-08-09] MED LIST changes: +DEXA4TA PO; +MORP15TA2 PO
[2024-08-09] MEDS: NS (Normal Saline) 0.9% 1,000 ML IV ONE (09:08)
[2024-08-09] MEDS: dexAMETHasone 20MG/5ML VIAL IV ONE (09:08)
[2024-08-09 09:58] LABS: ALBUMIN 2.8 G/DL (3.2-5.2); ALKALINE PHOSPHATASE 83 U/L (40-129); ALT/SGPT 29 U/L (7.0-40); AST/SGOT 85 U/L (<34); BILIRUBIN,TOTAL 0.5 MG/DL (0.3-1.2); BLOOD UREA NITROGEN 16 MG/DL (9-23); CARBON DIOXIDE LEVEL 24 MMOL/L (20-31); CHLORIDE LEVEL 94 MMOL/L (98-107); CREATININE FOR GFR 0.85 MG/DL (0.70-1.30); GLOMERULAR FILTRATION RATE > 90.0 (>49); GLUCOSE, FASTING 96 MG/DL (74-106); POTASSIUM SERUM 4.7 MMOL/L (3.5-5.1); SODIUM LEVEL 128 MMOL/L (136-145); TOTAL PROTEIN 6.4 G/DL (5.7-8.2)
== END ==
LOC: M ONCR 08:24
PROVIDERS: ATTEND General Practice
DX: E86.0 Dehydration (principal); R07.0 Pain in throat
CPT/HCPCS: 36415; 80053; 96360; 96374; G0463; J1100

== ENCOUNTER → 2024-08-18 | Outpatient (CLI) | payer MEDICARE, MEDICAID | LOC: M ONCR 08:21 | PROVIDERS: ATTEND General Practice | DX: C09.0 Malignant neoplasm of tonsillar fossa (principal); C05.1 Malignant neoplasm of soft palate; F17.218 Nicotine dependence, cigarettes, with other nicotine-induced disorders; Z92.21 Personal history of antineoplastic chemotherapy; Z92.3 Personal history of irradiation; Z72.89 Other problems related to lifestyle; Z79.1 Long term (current) use of non-steroidal anti-inflammatories (NSAID); Z79.82 Long term (current) use of aspirin; Z79.899 Other long term (current) drug therapy ==

== ENCOUNTER → 2024-09-01 | Outpatient (CLI) | payer MEDICARE, MEDICAID ==
[~2024-09-01] MED LIST changes: -FLOM0.4C39 PO; +PRED50TA57 PO; +TAMS-18 PO
[2024-09-01 08:38] LABS: BASO # 0.1 10^3/uL (0.0-0.2); BASO % 1.7 % (0.0-1.0); EOS # 0.1 10^3/uL (0.0-0.5); HEMATOCRIT 30.4 % (42.0-52.0); HEMOGLOBIN 10.3 g/dl (13.5-17.5); LYMPH # 0.5 10^3/uL (1.5-5.0); LYMPH % 16.9 % (24.0-44.0); MEAN CORPUSCULAR HGB CONC 33.9 g/dl (32.0-36.5); MEAN CORPUSCULAR VOLUME 97.4 fl (80.0-96.0); MONO # 0.5 10^3/uL (0.0-0.8); MONO % 15.9 % (2.0-8.0); NEUTROPHILS # 1.9 10^3/uL (1.5-8.5); NEUTROPHILS % 63.2 % (36.0-66.0); PLATELET COUNT, AUTOMATED 244 10^3/uL (150-450); RED BLOOD COUNT 3.12 10^6/uL (4.30-6.10)
[2024-09-01 09:12] LABS: ALBUMIN 2.8 G/DL (3.2-5.2); ALKALINE PHOSPHATASE 90 U/L (40-129); ALT/SGPT < 9 U/L (7.0-40); AST/SGOT 20 U/L (<34); BILIRUBIN,TOTAL 0.6 MG/DL (0.3-1.2); BLOOD UREA NITROGEN 7 MG/DL (9-23); CALCIUM LEVEL 7.9 MG/DL (8.3-10.6); CARBON DIOXIDE LEVEL 25 MMOL/L (20-31); CHLORIDE LEVEL 101 MMOL/L (98-107); GLOMERULAR FILTRATION RATE > 90.0 (>49); GLUCOSE, FASTING 102 MG/DL (74-106); POTASSIUM SERUM 3.6 MMOL/L (3.5-5.1); SODIUM LEVEL 134 MMOL/L (136-145); TOTAL PROTEIN 5.9 G/DL (5.7-8.2)
== END ==
LOC: M ONCR 08:05
PROVIDERS: ATTEND General Practice
DX: C09.0 Malignant neoplasm of tonsillar fossa (principal); Z92.21 Personal history of antineoplastic chemotherapy; Z92.3 Personal history of irradiation
CPT/HCPCS: 36415; 80053; 85025; G0463

== ENCOUNTER → 2024-11-08 | Outpatient (CLI) | payer MEDICARE, MEDICAID ==
[~2024-11-08] MED LIST changes: +HYDR4TAB PO; +MORP-137 PO; +MORP-69 PO
== END ==
LOC: M ONCR 07:57
PROVIDERS: ATTEND General Practice
DX: R07.0 Pain in throat (principal); J39.2 Other diseases of pharynx; F17.210 Nicotine dependence, cigarettes, uncomplicated; Z79.891 Long term (current) use of opiate analgesic
CPT/HCPCS: 31575; G0463

== ENCOUNTER → 2024-11-09 | Outpatient (CLI) | payer MEDICARE, MEDICAID ==
[~2024-11-09] MED LIST changes: +ISOVUE-370 76% 100 ML VIAL As Ordered ONE
== END ==
LOC: M RAD 15:17
PROVIDERS: ATTEND General Practice
DX: R91.1 Solitary pulmonary nodule (principal); J32.9 Chronic sinusitis, unspecified; C09.0 Malignant neoplasm of tonsillar fossa

== ENCOUNTER → 2024-11-22 | Outpatient (CLI) | payer MEDICARE, MEDICAID ==
[~2024-11-22] MED LIST changes: -ISOVUE-370 76% 100 ML VIAL As Ordered ONE
== END ==
LOC: M ONCR 09:09
PROVIDERS: ATTEND General Practice
DX: C09.0 Malignant neoplasm of tonsillar fossa (principal); Z92.21 Personal history of antineoplastic chemotherapy; Z79.891 Long term (current) use of opiate analgesic

== ENCOUNTER 2024-12-11 20:21 | Emergency (ER) | payer MEDICARE, MEDICAID ==
[~2024-12-11] VITALS: Ht 185.4 cm; Wt 63.6 kg
[~2024-12-11 20:21] MED LIST changes: +SENN-225 PO; -SENO8.6T5 PO
[2024-12-12] MEDS: KETOROLAC 60 MG/2 ML VIAL IM ONE (06:00)
[2024-12-12] MEDS ORDERED: MELO7.5T35 PO (06:47)
[2024-12-12 07:11] VITALS: BP 138/96; TEMP 98.4; O2SAT 96
[2024-12-21] MEDS ORDERED: DULO1CAP6 PO (09:19)
== END 2024-12-12 07:22 | disposition home or self-care (01) ==
LOC: M ED 20:21
DX: S80.01XA Contusion of right knee, initial encounter (principal); W19.XXXA Unspecified fall, initial encounter; Y92.9 Unspecified place or not applicable; Y93.9 Activity, unspecified; Y99.9 Unspecified external cause status; Z79.82 Long term (current) use of aspirin; Z79.899 Other long term (current) drug therapy
CPT/HCPCS: 73564; 93971; 96372; 99284; J1885

== ENCOUNTER → 2024-12-21 | Outpatient (CLI) | payer MEDICARE, MEDICAID ==
[~2024-12-21] MED LIST changes: +DULO1CAP6 PO; +MELO7.5T35 PO
== END ==
LOC: M ONCR 08:37
PROVIDERS: ATTEND General Practice
DX: C09.0 Malignant neoplasm of tonsillar fossa (principal); Z79.891 Long term (current) use of opiate analgesic

== ENCOUNTER → 2025-02-01 | Outpatient (CLI) | payer MEDICARE, MEDICAID ==
[~2025-02-01] MED LIST changes: +HYDR2TAB2 PO
== END ==
LOC: M ONCR 07:52
PROVIDERS: ATTEND General Practice
DX: Z01.89 Encounter for other specified special examinations (principal); R07.0 Pain in throat; B37.0 Candidal stomatitis; Z79.891 Long term (current) use of opiate analgesic

== ENCOUNTER → 2025-04-10 | Outpatient (CLI) | payer MEDICARE, MEDICAID ==
[~2025-04-10] MED LIST changes: -LABE200T5 PO; +LABE200T86 PO
== END ==
LOC: M ONCR 08:27
PROVIDERS: ATTEND General Practice
DX: C09.0 Malignant neoplasm of tonsillar fossa (principal); F17.218 Nicotine dependence, cigarettes, with other nicotine-induced disorders; Z92.21 Personal history of antineoplastic chemotherapy; Z92.3 Personal history of irradiation; Z72.89 Other problems related to lifestyle; Z79.891 Long term (current) use of opiate analgesic; Z79.899 Other long term (current) drug therapy; Z79.82 Long term (current) use of aspirin
CPT/HCPCS: 31575; G0463